=== PATIENT | female | born 1965 | race African-American/Black ===

== ENCOUNTER 2018-05-09 22:42 | Emergency (ER) | payer MEDICAID, OTHER ==
--- NOTE | 2018-05-10 02:52 | ER ---
Nurse's Notes [facility] Name: Sahra Dewey Age: 52 yrs Sex: Female : 1965 Arrival Date: 05/09/2018 Time: 22:47 Bed 14 Private MD: MARLEEN BORJA Diagnosis: Acute upper respiratory infection, unspecified Presentation: 05/09 23:01 Presenting complaint: Patient states: cough, nasal drainage, sneezing and feeling bad. ak1 Transition of care: patient was not received from another setting of care. Onset of symptoms was May 09, 2018. Risk Assessment: Do you want to hurt yourself or someone else? Patient reports no desire to harm self or others. Care prior to arrival: None. 23:01 Method Of Arrival: Ambulatory ak1 23:01 Acuity: MESSI 3 ak1 23:18 Initial Sepsis Screen: Does the patient meet any 2 criteria? No. Patient's initial cc3 sepsis screen is negative. Does the patient have a suspected source of infection? No. Patient's initial sepsis screen is negative. Triage Assessment: 23:04 General: Appears in no apparent distress. Behavior is calm, cooperative. ak1 23:18 Respiratory: Reports shortness of breath at rest on exertion Onset: The cc3 symptoms/episode began/occurred today, the patient has mild shortness of breath. 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 - Social history:: Smoking status: Patient/guardian denies using tobacco. - Ebola Screening: : No symptoms or risks identified at this time. Screenin:18 Abuse screen: Denies threats or abuse. Denies injuries from another. Nutritional cc3 screening: No deficits noted. Tuberculosis screening: No symptoms or risk factors identified. Fall Risk Ambulatory Aid- None/Bed Rest/Nurse Assist (0 pts). Gait- Normal/Bed Rest/Wheelchair (0 pts) Mental Status- Oriented to own ability (0 pts). Assessment: 23:18 General: Appears in no apparent distress. comfortable, Behavior is calm, cooperative, cc3 appropriate for age. Pain: Denies pain. Neuro: Level of Consciousness is awake, alert, obeys commands, Oriented to person, place, time, situation, Appropriate for age. Cardiovascular: Rhythm is regular. Respiratory: Airway is patent Respiratory effort is even, unlabored, Respiratory pattern is regular, symmetrical, Breath sounds are clear bilaterally. GI: Abdomen is round obese. : No signs and/or symptoms were reported regarding the genitourinary system. EENT: No signs and/or symptoms were reported regarding the EENT system. Derm: No signs and/or symptoms reported regarding the dermatologic system. Musculoskeletal: Circulation, motion, and sensation intact. Range of motion: intact in all extremities. 05/10 00:25 Reassessment: Patient appears in no apparent distress at this time. Patient and/or cc3 family updated on plan of care and expected duration. Pain level reassessed. Patient is alert, oriented x 3, equal unlabored respirations, skin warm/dry/pink. 01:10 Reassessment: Patient appears in no apparent distress at this time. Patient and/or cc3 family updated on plan of care and expected duration. Pain level reassessed. Patient is alert, oriented x 3, equal unlabored respirations, skin warm/dry/pink. 02:20 Reassessment: Patient appears in no apparent distress at this time. Patient and/or cc3 family updated on plan of care and expected duration. Pain level reassessed. Patient is alert, oriented x 3, equal unlabored respirations, skin warm/dry/pink. 03:10 Reassessment: Patient appears in no apparent distress at this time. Patient and/or cc3 family updated on plan of care and expected duration. Pain level reassessed. Patient is alert, oriented x 3, equal unlabored respirations, skin warm/dry/pink. PA Page discharged the patient home with prescription given. No IV cannula in situ. Patient left ER vitally stable and ambulatory. Vital Signs: 05/09 23:04 BP 140 / 118; Pulse 105; Resp 22; Temp 98.1; Pulse Ox 98% on R/A; Weight 188.24 kg (R); ak1 Height 5 ft. 4 in. (162.56 cm) (R); Pain 07/06; 05/10 00:25 BP 153 / 92; Pulse 79; Resp 20 S; Pulse Ox 95% on R/A; cc3 01:10 BP 157 / 90; Pulse 79; Resp 19 S; Pulse Ox 95% on R/A; cc3 02:01 BP 109 / 68; Pulse 101; Resp 20 S; Pulse Ox 100% on R/A; cc3 03:00 BP 122 / 81; Pulse 99; Resp 20 S; Pulse Ox 97% on R/A; cc3 05/09 23:04 Body Mass Index 71.23 (188.24 kg, 162.56 cm) ak1 ED Course: 05/09 22:47 Patient arrived in ED. am2 22:48 MARLEEN BORJA is Private Physician. am2 23:02 Triage completed. ak1 23:04 Arm band placed on Patient placed in waiting room, Patient notified of wait time. ak1 23:18 Keisha Tucker is Primary Nurse. cc3 23:18 Patient has correct armband on for positive identification. Bed in low position. Call cc3 light in reach. Side rails up X 1. child monitor on. Pulse ox on. NIBP on. 05/10 00:41 Phil Starks PA is PHCP. cp 00:41 Phil Lucia MD is Attending Physician. cp 01:35 XRAY Chest Pa And Lat (2 Views) In Process Unspecified. EDMS 03:10 No provider procedures requiring assistance completed. Patient did not have IV access cc3 during this emergency room visit. Administered Medications: No medications were administered Outcome: 02:52 Discharge ordered by . cp 03:10 Discharged to home ambulatory. cc3 03:10 Condition: stable 03:10 Discharge instructions given to patient, Instructed on discharge instructions, follow up and referral plans. medication usage, Demonstrated understanding of instructions, follow-up care, medications, Prescriptions given X 1. 03:17 Patient left the ED. cc3 Signatures: Dispatcher [employer] EDMS Sylwia Christianson, RN RN ak1 Phil Starks PA PA Clementine Blake am2 Keisha Tucker cc3
--- NOTE | 2018-05-10 02:52 | EDPHYS ---
Physician Documentation [facility] Name: Sahra Dewey Age: 52 yrs Sex: Female : 1965 Arrival Date: 05/09/2018 Time: 22:47 Bed 14 Private MD: MARLEEN BORJA ED Physician Phil Lucia HPI: 05/10 01:05 This 52 yrs old Black Female presents to ER via Ambulatory with complaints of cough. cp 01:05 The patient or guardian reports cough, that is intermittent. cp 01:05 Onset: The symptoms/episode began/occurred yesterday. Associated signs and symptoms: cp Pertinent positives: earache, rhinorrhea, sore throat, Pertinent negatives: chest pain, fever, vomiting. Severity of symptoms: in the emergency department the symptoms are unchanged despite home interventions. CCNA: 05/09 23:04 LMP N/A - Hysterectomy ak1 Historical: - Allergies: 23:04 No Known Allergies; ak1 - Home Meds: 23:04 losartan oral oral [Active]; Tessalon Perles 100 mg Oral cap [Active]; Albuterol Inhl ak1 [Active]; Advair Diskus Inhl [Active]; - PMHx: 23:04 Hypertension; Asthma; ak1 - PSHx: 23:04 ; Hysterectomy; lap band; ak1 - Immunization history:: Adult Immunizations unknown. - Social history:: Smoking status: Patient/guardian denies using tobacco. - Ebola Screening: : No symptoms or risks identified at this time. ROS: 05/10 01:08 Constitutional: Negative for body aches, fever, poor PO intake. cp 01:08 Eyes: Negative for injury, pain, redness, and discharge. cp 01:08 ENT: Positive for rhinorrhea, sore throat, Negative for drainage from ear(s), ear pain, difficulty swallowing, difficulty handling secretions. 01:08 Cardiovascular: Negative for chest pain, edema, palpitations. 01:08 Respiratory: Positive for cough, "sounds productive", Negative for shortness of breath, wheezing. 01:08 Abdomen/GI: Negative for abdominal pain, nausea, vomiting, and diarrhea, black/tarry stool, rectal bleeding. 01:08 Skin: Negative for cellulitis, rash. 01:08 Neuro: Negative for altered mental status, headache, weakness. 01:08 All other systems are negative. Exam: 01:00 ECG was reviewed by the Attending Physician. cp 01:15 Constitutional: The patient appears in no acute distress, alert, awake, cp non-diaphoretic, non-toxic, well developed, well nourished, obese. 01:15 Head/Face: Normocephalic, atraumatic. cp 01:15 Eyes: Periorbital structures: appear normal, Conjunctiva: normal, no exudate, no injection, Sclera: no appreciated abnormality, Lids and lashes: appear normal, bilaterally. 01:15 ENT: External ear(s): are unremarkable, Ear canal(s): are normal, clear, TM's: bulging, is not appreciated, bilaterally, dullness, bilaterally, erythema, is not appreciated, bilaterally, Nose: is normal, Mouth: Lips: moist, Oral mucosa: pink and intact, moist, Posterior pharynx: Airway: no evidence of obstruction, patent, Tonsils: are normal in appearance, Uvula: midline, swelling, is not appreciated, erythema, is not appreciated, exudate, is not appreciated, Voice: is normal. 01:15 Neck: ROM/movement: is normal, is supple, without pain, no range of motions limitations, no meningismus, no nuchal rigidity. 01:15 Chest/axilla: Inspection: normal, Palpation: is normal, no crepitus, no tenderness. 01:15 Cardiovascular: Rate: tachycardic, Rhythm: regular, JVD: is not appreciated. 01:15 Respiratory: the patient does not display signs of respiratory distress, Respirations: normal, no use of accessory muscles, no retractions, no splinting, no tachypnea, labored breathing, is not present, Breath sounds: decreased breath sounds, are not appreciated, stridor, is not appreciated, wheezing: is not appreciated. 01:15 Abdomen/GI: Inspection: obese Bowel sounds: active, all quadrants, Palpation: abdomen is soft and non-tender, in all quadrants. 01:15 Skin: cellulitis, is not appreciated, no rash present. Vital Signs: 05/09 23:04 BP 140 / 118; Pulse 105; Resp 22; Temp 98.1; Pulse Ox 98% on R/A; Weight 188.24 kg (R); ak1 Height 5 ft. 4 in. (162.56 cm) (R); Pain 4/10; 05/10 00:25 BP 153 / 92; Pulse 79; Resp 20 S; Pulse Ox 95% on R/A; cc3 01:10 BP 157 / 90; Pulse 79; Resp 19 S; Pulse Ox 95% on R/A; cc3 02:01 BP 109 / 68; Pulse 101; Resp 20 S; Pulse Ox 100% on R/A; cc3 03:00 BP 122 / 81; Pulse 99; Resp 20 S; Pulse Ox 97% on R/A; cc3 05/09 23:04 Body Mass Index 71.23 (188.24 kg, 162.56 cm) ak1 MDM: 00:41 Patient medically screened. cp 02:50 Data reviewed: vital signs, nurses notes, lab test result(s), radiologic studies, plain cp films. 02:50 Differential diagnosis: bronchitis, flu, pneumonia, strep throat. Test interpretation: cp by ED physician or midlevel provider: plain radiologic studies. Counseling: I had a detailed discussion with the patient and/or guardian regarding: the historical points, exam findings, and any diagnostic results supporting the discharge/admit diagnosis, lab results, radiology results, the need for outpatient follow up, a family practitioner, to return to the emergency department if symptoms worsen or persist or if there are any questions or concerns that arise at home. Response to treatment: the patient's symptoms have mildly improved after treatment, and as a result, I will discharge patient. 05/10 01:06 Order name: Influenza Screen (a \\T\\ B); Complete Time: 02:49 cp 05/10 01:06 Order name: Strep; Complete Time: 02:49 cp 05/10 01:07 Order name: XRAY Chest Pa And Lat (2 Views) cp 05/10 02:41 Order name: Throat Culture EDMS EC:00 Rate is 107 beats/min. Rhythm is regular. MA interval is normal. QRS interval is cp normal. QT interval is normal. Interpreted by me. Reviewed by me. Administered Medications: No medications were administered Disposition: 07:01 Co-signature as Attending Physician, Phil Lucia MD I agree with the assessment and melinda plan of care. Disposition: 05/10/18 02:52 Discharged to Home. Impression: Acute upper respiratory infection, unspecified. - Condition is Stable. - Discharge Instructions: Upper Respiratory Infection, Adult, Viral Respiratory Infection, [id number]. - Prescriptions for Tessalon Perles 100 mg Oral Capsule - take 2 capsule by ORAL route every 8 hours As needed; 30 capsule. - Medication Reconciliation Form, Thank You Letter, Antibiotic Education, Prescription Opioid Use form. - Follow up: Private Physician; When: 2 - 3 days; Reason: Recheck today's complaints. - Problem is new. - Symptoms are unchanged. Signatures: Dispatcher [employer] EDNM Phil Lucia MD MD cha Krenek, Amber RN RN ak1 Phil Starks PA PA cp Keisha Tucker cc3 Corrections: (The following items were deleted from the chart) 02:05 02:03 This 52 yrs old Black Female presents to ER via Ambulatory with complaints of cp cough. cp 03:17 02:52 05/10/2018 02:52 Discharged to Home. Impression: Acute upper respiratory cc3 infection, unspecified. Condition is Stable. Forms are Medication Reconciliation Form, Thank You Letter, Antibiotic Education, Prescription Opioid Use. Follow up: Private Physician; When: 2 - 3 days; Reason: Recheck today's complaints. Problem is new. Symptoms are unchanged. cp
[2018-05-10 03:49] VITALS: TEMP 98.1
[2018-05-10 03:52] VITALS: BP 109/68; O2SAT 100
--- NOTE | 2018-05-10 07:21 | EKG ---
Test Date: 2018-05-10 Test Time: 00:50:24 Process Technician: AG3 MEASUREMENT RESULTS: Intervals: Rate: 107 NM: 156 QRSD: 90 QT: 366 QTc: 488 Winder: P: 62 NM: 156 QRS: 33 T: 48 INTERPRETIVE STATEMENTS: Sinus tachycardia Otherwise normal ECG Compared to ECG 03/12/2015 09:23:48 Sinus rhythm no longer present Electronically Signed On 05-10-18 07:20:50 FEEDLOT MANAGER by Roland Yu
--- NOTE | 2018-05-10 08:38 | RAD REPORT ---
EXAM DESCRIPTION: RAD - Chest Pa And Lat (2 Views) - 05/10/2018 1:36 am CLINICAL HISTORY: COUGH Chest pain. COMPARISON: CHEST SINGLE VIEW dated 04/22/2014; CHEST PA AND LAT 2 VIEW dated 05/30/2010; CHEST PA AND LAT 2 VIEW dated 09/09/2009 FINDINGS: The lungs are clear. The heart is mildly to moderately enlarged in size. No displaced frac tures.
== END 2018-05-10 03:17 | disposition home or self-care (01) ==
LOC: ER 22:42
DX: J06.9 Acute upper respiratory infection, unspecified (principal); I10 Essential (primary) hypertension; J45.909 Unspecified asthma, uncomplicated
CPT/HCPCS: 71046; 87070; 87081; 87804; 93005; 99284

== ENCOUNTER 2018-10-30 00:03 | Emergency (ER) | payer OTHER ==
--- OUTSIDE RECORDS SUMMARY | 2018-10-30 00:06 | XMS REPORT ---
:1965 [facility] Address [address] [place] [address] Care Team Providers Name Role Phone Unavailable Unavailable Unavailable Problems This patient has no known problems. Allergies, Adverse Reactions, Alerts This patient has no known allergies or adverse reactions. Medications This patient has no known medications.
--- OUTSIDE RECORDS SUMMARY | 2018-10-30 00:06 | XMS REPORT | Summary of Care ---
:1965 Author Organization [facility] Address [address] [place] [id number] Care Team Providers Name Role Phone Lucie Giordano Primary Care Provider Reason for Referral Status Reason Specialty Diagnoses / Referred By Referred To Procedures Contact Contact New Request Obstetrics & Diagnoses Well woman exam Lucie Giordano, Gynecology Procedures CONSULT/REFERRAL LIME HIDE INSPECTOR TRACIE Sawant PA-C [address] [place] [address] DR Hernandez [facility] [address] [id number] [place], [place] Phone: [phone] Phone: (Routine) Status Reason Specialty Diagnoses / Referred By Referred To Procedures Contact Contact New Request Location Ophthalmology Diagnoses Type 2 diabetes mellitus without complication, without long-term current use of insulin Giuliana, [place] Procedures CONSULT/REFERRAL OPHTHALMOLOGY TRACIE Geronimo [address] [place] [address] [place] [address] (Routine) Status Reason Specialty Diagnoses / Referred By Referred To Procedures Contact Contact New Request Surgery Diagnoses Morbid obesity with BMI of 70 and over, adult Lucie Giordano, Procedures CONSULT/REFERRAL BARIATRIC SURGERY [address] [place] [place] [address] Reason for Visit Reason Comments Follow-up labs Encounter Details Date Type Department Care Team Description 10/20/2018 Office Visit [facility] Family Lucie Giordano, Type 2 diabetes mellitus without complication, without long-term current use of insulin (Primary Dx); Medicine - [place] Morbid obesity with BMI of 70 and over, adult; [facility] [address] [facility] [address] Microscopic hematuria; [place], [place] Abnormal chest x-ray; [id number] Bilateral lower extremity edema; [phone] Well woman exam Allergies No Known Allergiesdocumented as of this encounter (statuses as of 10/20/2018) Medications Medication Sig Dispensed Refills Start Date End Date Status fluticasone Inhale. 0 Active propion/salmeterol (ADVAIR DISKUS INHALE) albuterol 90 Inhale 2 Puffs 0 Active mcg/actuation inhaler every 6 (six) hours as needed for Wheezing or Shortness of Breath. loratadine 10 mg Take 1 tablet by 30 tablet 0 10/06/2018 Active tabletIndications: mouth daily. Seasonal allergic rhinitis due to pollen fluticasone Use 2 Sprays in 16 g 0 10/06/2018 Active propionate 50 each nostril daily. mcg/actuation nasal sprayIndications: Seasonal allergic rhinitis due to pollen metFORMIN 500 mg Take 1 tablet by 60 tablet 3 10/20/2018 Active tabletIndications: mouth 2 (two) times Type 2 diabetes daily with meals. mellitus without complication, without long-term current use of insulin documented as of this encounter (statuses as of 10/20/2018) Active Problems Problem Noted Date Morbid obesity with BMI of 70 and over, adult 10/12/2018 Type 2 diabetes mellitus without complication, without long-term current 10/12 use of insulin Bilateral lower extremity edema 10/12/2018 Snoring 10/12/2018 documented as of this encounter (statuses as of 10/20/2018) Social History Tobacco Use Types Packs/Day Years Used Date Never Smoker Smokeless Tobacco: Never Used Alcohol Use Drinks/Week oz/Week Comments Not Currently Sex Assigned at Date Recorded Not on file Job Start Date Occupation Industry Not on file Not on file Not on file Travel History Travel Start Travel End No recent travel history available. documented as of this encounter Last Filed Vital Signs Vital Sign Reading Time Taken Comments Blood Pressure 122/79 10/20/2018 1:59 PM CDT Pulse 82 10/20/2018 1:59 PM CDT Temperature 36.7 C (98 F) 10/20/2018 1:59 PM CDT Respiratory Rate - - Oxygen Saturation 97% 10/20/2018 1:59 PM CDT Inhaled Oxygen Concentration - - Weight 199.6 kg (440 lb) 10/20/2018 1:59 PM CDT Height - - Body Mass Index 75.53 10/06/2018 2:59 PM CDT documented in this encounter Patient Instructions Patient InstructionsLucie Giordano PA - 10/20/2018 2:00 PM CDT Understanding Loop Trolley MyPlate The USDA (U.S. Department of Agriculture) has guidelines to help you make healthy food choices. These are called MyPlate. MyPlate shows the food groups that make up healthy meals using the image of a place setting. Before you eat, think about the healthiest choices for what to put onto your plate or into your cup or bowl. To learn more about building a healthy plate, visit www.choosemyplate.gov. The food groups Fruits. Any fruit or 100% fruit juice counts as part of the Fruit Group. Fruits may be fresh, canned, frozen, or dried, and may be whole, cut-up, or pureed. Make half your plate fruits and vegetables. Vegetables. Any vegetable or 100% vegetable juice counts as a member of the Vegetable Group. Vegetables may be fresh, frozen, canned, or dried. They can be served raw or cooked and may be whole, cut-up, or mashed. Make half your plate fruits and vegetables. Grains. All foods made from grains are part of the Grains Group. These include wheat, rice, oats,cornmeal, and barley such as bread, pasta, oatmeal, cereal, tortillas, and grits. Grains should be no more than a quarter of your plate. At least half of your grains should be whole grains. Protein. This group includes meat, poultry, seafood, beans and peas, eggs, processed soy products(like tofu), nuts (including nut butters), and seeds. Make protein choices no more than a quarter ofyour plate. Meat and poultry choices should be lean or low fat. Dairy. All fluid milk products and foods made from milk that contain calcium , like yogurt and cheese, are part of the Dairy Group. (Foods that have little calcium, such as cream, butter, and cream cheese, are not part of the group.) Most dairy choices should be low-fat or fat-free. Oils. These are fats that are liquid at room temperature. They include canola , corn, olive, soybean, and sunflower oil. Foods that are mainly oil include mayonnaise, certain salad dressings, and soft margarines. You should have only 5 to 7 teaspoons of oils a day. You probably already get this muchfrom the food you eat. Date Last Reviewed: 10/27/2016 [employer] [address] [place] [id number]. All rights reserved. This information is not intended as a substitute for professional medical care. Always follow your healthcare professional's instructions. Aerobic Exercise for a Healthy Heart Exercise is a lot more than an energy booster and a stress reliever. It also strengthens your heart muscle, lowers your blood pressure and cholesterol, and helton calories. It can also improve your resting muscle tone, and your mood. Choose an activity that makes your heart and lungs work harder than they do when you rest or walk normally. This aerobic exercise can improve the way your heart and other muscles use oxygen. Make it fun by exercising with a friend and choosing an activity you enjoy. Here are some ideas: Walking Swimming Bicycling Stair climbing Dancing Jogging Gardening Remember, some activity is better than none. Exercise regularly If you havent been exercising regularly, get your doctors OK first. Then start slowly. Here are some tips: Begin exercising 3 times a week for 5 to 10minutes at a time. When you feel comfortable, add a few minutes each session. Slowly build up to exercising 3 to 4 times each week. Each session should last for 40 minutes, onaverage, and involve moderate- to vigorous-intensity physical activity. If you have been given nitroglycerin, be sure to carry it when you exercise. If you get chest pain (angina) when youre exercising, stop what youre doing, take your nitroglycerin, and call your doctor. Date Last Reviewed: 08/29/[address] [employer] [address] [place] [id number]. All rights reserved. This information is not intended as a substitute for professional medical care. Always follow your healthcare professional's instructions. documented in this encounter Progress Notes Lucie Giordano PA - 10/20/2018 2:00 PM CDT Cc: Chief Complaint Patient presents with Follow-up labs Sahra Huerta is a 53 year old female. Obesity: Has appointment with admitting office escort scheduled. Patient requests referral to bariatric surgery Started making some small changes Current diet includes: Am- corn dog Lunch- 2 baked chicken legs, vegetables Dinner- same as above Beverages- stopped sodas. Will drink powerade Or water. Exercise- none Abnormal CXR: mild pulmonary vascular congestion noted. Referred to cardio- patient has appointment scheduled. 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 Ordered b/l doppler, patient needs to complete No cough, wheezing, sob, meeks, orthopnea No hemoptysis No cp, palpitations No dizziness, syncope, weakness No calf pain, swelling, redness, warmth, tenderness Diabetes She presents for her initial diabetic visit. She has type 2 diabetes mellitus. There are no hypoglycemic associated symptoms. Pertinent negatives for hypoglycemia include no dizziness or headaches. Pertinent negatives for diabetes include no blurred vision, no chest pain, no fatigue, no foot paresthesias, no foot ulcerations, no polydipsia, no polyphagia, no polyuria, no visual change, no weakness and no weight loss. There are no hypoglycemic complications. Symptoms are stable. There are no diabeticcomplications. Risk factors for coronary artery disease include dyslipidemia, diabetes mellitus, obesity and post-menopausal. An WHITNEY inhibitor/angiotensin II receptor charu is not being taken. Allergies Sahra has No Known Allergies. Medications Outpatient Medications Prior to Visit Medication Sig Dispense Refill albuterol 90 mcg/actuation inhaler Inhale 2 Puffs every 6 (six) hours as needed for Wheezing or Shortness of Breath. fluticasone propion/salmeterol (ADVAIR DISKUS INHALE) Inhale. fluticasone propionate 50 mcg/actuation nasal spray Use 2 Sprays in each nostril daily. 16 g 0 loratadine 10 mg tablet Take 1 tablet by mouth daily. 30 tablet 0 No facility-administered medications prior to visit. Histories Past Medical History: Diagnosis Date Allergic rhinitis Arthritis Asthma Bilateral lower extremity edema Diabetes Hypertension Morbid obesity Past Surgical History: Procedure Laterality Date CYST EXCISION abdomen HYSTERECTOMY LAPAROSCOPIC ADJUSTABLE GASTRIC BANDING RADICAL HYSTERECTOMY Social History Socioeconomic History Marital status: Single Spouse name: Not on file Number of children: Not on file Years of education: Not on file Highest education level: Not on file Occupational History Not on file Social Needs Financial resource strain: Not on file Food insecurity: Worry: Not on file Inability: Not on file Transportation needs: Medical: Not on file Non-medical: Not on file Tobacco Use Smoking status: Never Smoker Smokeless tobacco: Never Used Substance and Sexual Activity Alcohol use: Not Currently Drug use: Never Sexual activity: Not on file Lifestyle Physical activity: Days per week: Not on file Minutes per session: Not on file Stress: Not on file Relationships Social connections: Talks on phone: Not on file Gets together: Not on file Attends shinto service: Not on file Active member of club or organization: Not on file Attends meetings of clubs or organizations: Not on file Relationship status: Not on file Intimate partner violence: Fear of current or ex partner: Not on file Emotionally abused: Not on file Physically abused: Not on file Forced sexual activity: Not on file Other Topics Concern Not on file Social History Narrative Lives at home with fiance, daughter, granddaughter No domestic violence Family History Problem Relation Age of Onset Other - see comments Mother TIA Hypertension Father Diabetes Father Stroke Father Review of Systems Constitutional: Negative for activity change, appetite change, chills, diaphoresis, fatigue, fever, unexpected weight change, weight gain and weight loss. HENT: Negative for congestion, ear pain, postnasal drip, rhinorrhea, sinus pressure, sneezing and sore throat. Eyes: Negative for blurred vision. Respiratory: Negative for cough, choking, chest tightness, shortness of breath, wheezing and stridor. Cardiovascular: Positive for leg swelling (chronic, unchanged). Negative for chest pain and palpitations. Gastrointestinal: Negative for abdominal pain, constipation, diarrhea, nausea and vomiting. Genitourinary: Negative for bladder incontinence, dysuria, urgency, polyuria, hematuria, flank pain,vaginal bleeding, difficulty urinating, pelvic pain and nocturia. Musculoskeletal: Negative for arthralgias, back pain, gait problem, joint swelling and myalgias. Neurological: Negative for dizziness, syncope, weakness, light-headedness, numbness and headaches. Hematological: Negative for cold intolerance and heat intolerance. Endocrine: Negative for goiter, hair loss, cold intolerance, heat intolerance, polydipsia, polyphagia, polyuria, weight gain and weight loss. Vital Signs BP 122/79 | Pulse 82 | Temp 36.7 C (98 F) (Tympanic) | Wt 440 lb (199.6 kg) | SpO2 97% | BMI 75.53 kg/m Physical Exam Constitutional: She is oriented to person, place, and time. She appears well- developed and well-nourished. No distress. HENT: Head: Normocephalic and atraumatic. Neck: Carotid bruit is not present. Cardiovascular: Normal rate, regular rhythm, normal heart sounds and intact distal pulses. Pulmonary/Chest: Effort normal and breath sounds normal. Abdominal: Soft. Bowel sounds are normal. She exhibits no distension. There is no tenderness. There is no guarding. Musculoskeletal: Normal range of motion. She exhibits edema (trace b/l LE edema , unchanged). She exhibits no tenderness. Neurological: She is alert and oriented to person, place, and time. Sensory exam of the foot is normal. Monofilament exam with sensation Right: 5/5 , Left: 5/5. Lesions absent Ulcers Absent Peripheral pulses present 2+. Skin: Skin is warm and dry. She is not diaphoretic. Psychiatric: She has a normal mood and affect. Nursing note and vitals reviewed. Results for SAHRA HUERTA ( ) as of 10/20/2018 14:04 Ref. Range 10/07/2018 10:54 10/07/2018 11:06 WBC x10^3 Latest Ref Range: 4.30 - 11.10 10*3/L 5.15 RBC x10^6 Latest Ref Range: 3.93 - 5.25 10*6/L 4.44 HGB Latest Ref Range: 11.6 - 15.0 g/dL 11.7 HCT Latest Ref Range: 35.7 - 45.2 % 37.5 MCV Latest Ref Range: 80.6 - 95.5 fL 84.5 MCH Latest Ref Range: 25.9 - 32.8 pg 26.4 MCHC Latest Ref Range: 31.6 - 35.1 g/dL 31.2 (L) RDW-SD Latest Ref Range: 39.0 - 49.9 fL 45.1 RDW-CV Latest Ref Range: 12.0 - 15.5 % 14.8 PLT x10^3 Latest Ref Range: 166 - 358 10*3/L 258 MPV Latest Ref Range: 9.5 - 12.9 fL 10.1 NRBC /100 WBC Latest Ref Range: 0.0 - 10.0 /100 WBCs 0.0 NRBC x10^3 Latest Units: 10*3/L <0.01 GRAN MAT (NEUT) % Latest Units: % 51.7 IMM GRAN % Latest Units: % 0.20 LYMPH% Latest Units: % 35.3 MONO % Latest Units: % 6.0 EOS % Latest Units: % 5.8 BASO % Latest Units: % 1.0 GRAN MAT x10^3(ANC) Latest Ref Range: 1.88 - 7.09 10*3/uL 2.66 IMM GRAN x10^3 Latest Ref Range: 0.00 - 0.06 10*3/uL <0.03 LYMPH x10^3 Latest Ref Range: 1.32 - 3.29 10*3/uL 1.82 MONO x10^3 Latest Ref Range: 0.33 - 0.92 10*3/uL 0.31 (L) EOS x10^3 Latest Ref Range: 0.03 - 0.39 10*3/uL 0.30 BASO x10^3 Latest Ref Range: 0.01 - 0.07 10*3/uL 0.05 NA Latest Ref Range: 135 - 145 mmol/L 142 K Latest Ref Range: 3.5 - 5.0 mmol/L 4.4 CL Latest Ref Range: 98 - 108 mmol/L 102 CO2 TOTAL Latest Ref Range: 23 - 31 mmol/L 31 AGAP Latest Ref Range: 2 - 16 9 BUN Latest Ref Range: 7 - 23 mg/dL 13 GLUCOSE Latest Ref Range: 70 - 110 mg/dL 125 (H) CREATININE Latest Ref Range: 0.50 - 1.04 mg/dL 0.72 eGFR CALCULATION (non ) Latest Units: mL/min/1.73m2 85.1 eGFR CALCULATION () Latest Units: mL/min/1.73m2 103.1 TOTAL BILI Latest Ref Range: 0.1 - 1.1 mg/dL 0.5 CHOL Latest Ref Range: 120 - 200 mg/dL 211 (H) TRIG Latest Ref Range: 30 - 170 mg/dL 98 HDL CHOL Latest Ref Range: >50 mg/dL 42 (L) HDLC RATIO Latest Ref Range: <=4.5 5.0 (H) LDL CHOL Latest Ref Range: <=160 mg/dL 149 VLDL Latest Ref Range: 5 - 60 mg/dL 20 CALCIUM Latest Ref Range: 8.6 - 10.6 mg/dL 9.6 T PROTEIN Latest Ref Range: 6.3 - 8.2 g/dL 7.5 ALBUMIN Latest Ref Range: 3.5 - 5.0 g/dL 3.8 NT-proBNP Latest Ref Range: <=125 pg/mL 60 HGB A1C Latest Ref Range: 4.0 - 6.0 % NGSP 7.0 (H) ALK PHOS Latest Ref Range: 34 - 122 U/L 111 ALT(SGPT) Latest Ref Range: 9 - 51 U/L 29 AST(SGOT) Latest Ref Range: 13 - 40 U/L 24 ROBERT AM Latest Ref Range: 4.5 - 23.0 ug/dL 5.6 TSH Latest Ref Range: 0.45 - 4.70 mIU/L 4.93 (H) FREE T4 Latest Ref Range: 0.78 - 2.20 ng/dL 1.24 FREE T3 Latest Ref Range: 2.77 - 5.27 pg/mL 3.73 COLOR Latest Ref Range: Yellow Yellow APPEARANCE Latest Ref Range: Clear Clear SP GRAVITY Latest Ref Range: 1.003 - 1.030 1.020 PH Latest Ref Range: 4.8 - 8.0 6.0 PROTEIN Latest Ref Range: Negative Negative GLU U QUAL Latest Ref Range: Negative Negative KETONES Latest Ref Range: Negative Negative BILIRUBIN Latest Ref Range: Negative Negative BLOOD Latest Ref Range: Negative Moderate (A) UROBILIN Latest Ref Range: 0-1.0 mg/dL 0.2 mg/dL NITRITE Latest Ref Range: Negative Negative LEUK GROVER Latest Ref Range: Negative Negative RBC/HPF Latest Ref Range: 0 - 3 HPF 1 WBC/HPF Latest Ref Range: 0 - 5 HPF 1 BACTERIA Latest Ref Range: Negative Few (A) SQ EPITH Latest Units: HPF 5 Assessment/Plan Type 2 diabetes mellitus without complication, without long-term current use of insulin (primary encounter diagnosis) Plan: metFORMIN 500 mg tablet, CONSULT/REFERRAL OPHTHALMOLOGY, MICROALBUMIN URINE, BLOOD GLUCOSE TEST STRIPS (BOX), GLUCOMETER, LANCET DEVICE EACH A1c 7, discussed lifestyle modifications vs medication initiation. Recommend trial of diet/exercise but patient prefers to start on metformin. Start metformin BID with food. Counseled educated on etiology of DM in great detail, including the pathophysiology, symptoms, treatment, and complications. Educated on the differences between type 1 and type 2. Pt dx with DM type II Educated in detail the complications of DM specifically: microvascular and macrovascular and thus importance of DM control. Explained how to avoid hypoglycemia while taking medications. Educated/demonstrated how to check glucose regularly - daily for now. Keep log. Pt given necessary supplies. Educated on importance of yearly DM eye exams to eval for dm retinopathy. Encouraged/discussed DM foot care: daily foot exams. Patient already set up with nutrition- encouraged to follow-up The 10-year ASCVD risk score (Piaalex DELGADO Jr., et al., 2013) is: 6.8% Values used to calculate the score: Age: 53 years Sex: Female Is Non- : Yes Diabetic: Yes Tobacco smoker: No Systolic Blood Pressure: 122 mmHg Is BP treated: No HDL Cholesterol: 42 mg/dL Total Cholesterol: 211 mg/dL Educated/counseled on lifestyle habits including: Counseled on eating portion controlled, well balanced portion controlled diets. Worked through his current meal plan while educating on improvements/changes to be made along with meal planning examples. Educated on food labels and how to interpret. Recommend calorie consumption of 6814-5177 with < 45% of intake being carbs, and < 10 % being fat. Recommend/discussed Heart healthy diet: low fat/carb/sugar diet; increase lean meat-chicken, turkey,fish; increase vegetables/fruits ( still be careful because elevated sugar level) Recommend/discussed Heart Healthy Exercise: total of 150 minutes of cardio: walking,swimming, hiking, biking every week. Stressed the importance of not skipping meals. Discuss ed healthy snacks such as tree nuts, raw veggies. Encouraged pt to go to ADA website for more helpful information. ER--> worsening condition; cp, shortness of breath, dizziness, syncope, palpitations, n/v, diaphoresis. Morbid obesity with BMI of 70 and over, adult Plan: CONSULT/REFERRAL BARIATRIC SURGERY Patient already set up with nutrition- encouraged to follow-up Requesting referral to weight loss/bariatric surgery clinic, will refer. Nutritional/Exercise Counseling and Education: - Counseled on diet, exercise, weight control and goals - Referral to the weight management center for further counseling and review surgical options Counseled on healthy lifestyle habits in great detail including: -Portion control -My plate model with fruits/vegetables on half of your plate -Monitoring caloric intake via my fitness pal lori: goal 1602-8080 ap daily for women, 3225-7233 calfor men. -Recommend avoiding sodas -Recommend avoiding fast food -Recommend increasing water: min 64 oz daily -Recommend Heart healthy diet: low fat/carb/sugar diet; increase lean meat- chicken, turkey, fish; increase vegetables/fruits ( still be careful because elevated sugar level) -Recommend Heart Healthy Exercise: total of 150 minutes of cardio: walking, swimming, hiking, biking every week. Microscopic hematuria Plan: URINALYSIS Recheck microscopic UA. Abnormal chest x-ray Plan: Identified mild pulmonary vascular congestion. No cp, sob, wheezing, hemoptysis, dizziness, syncope Patient referred to cardiology, echo? Patient agrees to follow-up Encouraged to complete HST, follow-up with sleep medicine pending results. Study Result HISTORY: Bilateral lower extremity edema. TECHNIQUE: PA and lateral views of the chest are obtained. No prior chest study available for comparison. FINDINGS: No acute pneumonia detected. No pneumothorax or pleural effusion or pulmonary congestion. Cardiothoracic ratio of approximately 13.7/30.8 cm is consistent with normal cardiac size. Mild generalized fullness of pulmonary vasculature is seen without jamie pulmonary edema. CONCLUSIONS: Mild pulmonary vascular congestion. Bilateral lower extremity edema Plan: chronic, unchanged. No calf pain, warmth, redness, tenderness. No sob, cp. Normal BNP. Ordered b/l doppler- encouraged to complete. Recommend compression stockings Recommend bilateral elevation ER--> worsening condition; cp, shortness of breath, dizziness, syncope, palpitations, n/v, diaphoresis, calf pain, hemoptysis. Well woman exam Plan: CONSULT/REFERRAL LIME HIDE INSPECTOR Pt ed/precautions given in detail regarding conditions/medicaitons. Er precautions given. Pt reportsunderstanding and agrees. rtc if s/s worsen or do not improve; 3 months; Plan of care, desired health behaviors, goals, Ddx, & any prescribed or OTC medications discussed with patient. Education resources & self management tools provided and reviewed with AVS. Patient/guardian/family verbalized understanding & agrees to plan of care. Barriers to care: NONE Ability to manage care: Good This visit did not involve counseling and coordination that comprised more than 50% of the visit time.Electronically signed by Lucie Giordano PA at 2018 5:05 PM CDTdocumented in this encounter Plan of Treatment Date Type Specialty Care Team Description 10/24/2018 Regional Economic Liaison Visit Sleep Disorder Diagnostic Trevon Atwood [address] [place] [address] Dr [address] [place], [place] [id number] 11/08/2018 Office Visit Cardiology Brock Ritchie MD [address] [place] [address] [address] [place] [address] [phone] 03/07/2019 Machine Packaging Technician Visit Endocrinology Diabetes & SolomonRaine, RD Metabolism [address] [place] [address] [phone] Name Type Priority Associated Diagnoses Date/Time URINALYSIS LAB Routine Microscopic hematuria 10/20/2018 3:01 PM CDT MICROALBUMIN URINE LAB Routine Type 2 diabetes mellitus 10/20/2018 3:01 PM CDT without complication, without long-term current use of insulin Health Maintenance Due Date Last Done Comments PNEUMOCOCCAL 0-64 YEARS COMBINED 1972 SERIES (1 of 1 - PPSV23) EYE EXAM 1976 URINE MICROALBUMIN 1976 PAP SMEAR 07/19/1987 COLONOSCOPY 2016 Zoster Recombinant Vaccine 2016 (SHINGRIX) (1 of 2) INFLUENZA VACCINE 11/27/2018 HgA1C 04/09/2019 10/07/2018 CREATININE (SERUM) 10/08/2019 10/07/2018 LDL-C 10/08/2019 10/07/2018 MAMMOGRAM 10/18/2019 10/17/2018 DTaP,Tdap,and Td Vaccines (1 - 10/21/2019 Postponed from 1985 Tdap) (Patient Refused) FOOT EXAM 10/21/2019 10/20/2018 documented as of this encounter Results Not on filedocumented in this encounter Visit Diagnoses Diagnosis Type 2 diabetes mellitus without complication, without long-term current use of insulin - Primary Morbid obesity with BMI of 70 and over, adult Microscopic hematuria Abnormal chest x-ray Other nonspecific abnormal finding of lung field Bilateral lower extremity edema Edema Well woman exam Routine general medical examination at a health care facility documented in this encounter Insurance Payer Benefit Plan / Subscriber ID Effective Dates Phone Address Type Group [facility] xxxxxxxxx 2018-Present Medicaid COMM PLAN - PLUS MANAGED MEDICAID documented as of this encounter"
--- OUTSIDE RECORDS SUMMARY | 2018-10-30 00:07 | XMS REPORT | Summary of Care ---
:1965 Author Organization [facility] Address [address] [place] [address] Care Team Providers Name Role Phone Lucie Giordano Primary Care Provider Reason for Visit Reason Comments Orders Encounter Details Date Type Department Care Team Description 10/20/2018 Telephone [facility] Family Medicine Lucie Giordano PA Orders - [address] [address] [place] [address] Allergies No Known Allergiesdocumented as of this encounter (statuses as of 10/24/2018) Medications Medication Sig Dispensed Refills Start Date [...] as of this encounter (statuses as of 10/24/2018) Active Problems Problem Noted Date Morbid obesity with BMI of 70 and over, adult 10/12/2018 Type 2 diabetes mellitus without complication, without long-term current 10/12 use of insulin Bilateral lower extremity edema 10/12/2018 Snoring 10/12/2018 documented as of this encounter (statuses as of 10/24/2018) Social History Tobacco Use Types Packs/Day Years [...] of this encounter Last Filed Vital Signs Not on filedocumented in this encounter Plan of Treatment Date Type Specialty Care Team Description 10/24/2018 Research Environmental Engineer Visit Sleep Disorder Diagnostic Trevon Atwood [address] [place] [address] 11/08/2018 Office Visit Cardiology Brock Ritchie MD [address] [place] [address] [address] [place] [address] [phone] 12/19/2018 Office Visit Urology Robert Palma MD [address] [place] [address] 03/07/2019 Meat Carver Visit Endocrinology Diabetes & Solomon, Raine, RD Metabolism [address] [place], [place] [address] Health Maintenance Due Date Last Done Comments PNEUMOCOCCAL 0-64 YEARS 1972 COMBINED SERIES (1 of 1 - PPSV23) EYE EXAM 1976 PAP SMEAR 07/19/1987 COLONOSCOPY 2016 Zoster Recombinant Vaccine 2016 (SHINGRIX) (1 of 2) INFLUENZA VACCINE 11/27/2018 HgA1C 04/09/2019 10/07/2018 CREATININE (SERUM) 10/08/2019 10/07/2018 LDL-C 10/08/2019 10/07/2018 MAMMOGRAM 10/18/2019 10/17/2018 DTaP,Tdap,and Td Vaccines (1 10/21/2019 Postponed from 1985 - Tdap) (Patient Refused) FOOT EXAM 10/21/2019 10/20/2018, 10/20/2018, 10/20/2018 URINE MICROALBUMIN 10/21/2019 10/20/2018 documented as of this encounter Results Not on filedocumented in this encounter Insurance Payer Benefit Plan / Subscriber ID Effective Dates Phone Address Type Group [facility] xxxxxxxxx 2018-Present Medicaid COMM PLAN - PLUS MANAGED MEDICAID documented as of this encounter
--- OUTSIDE RECORDS SUMMARY | 2018-10-30 00:07 | XMS REPORT | Summary of Care ---
:1965 Author Organization [facility] Address [address] [place] [address] Care Team Providers Name Role Phone Lucie Giordano Primary Care Provider Encounter Details Date Type Department Care Team Description 10/24/2018 Orders Only [facility] Doctor Unassigned, No [address] [facility] [address] [address] [place] [address] Allergies No Known Allergiesdocumented as of this [...] complication, without long-term current use of insulin Lancing Device with Use as directed, 1 Kit 0 10/21/2018 Active Lancets (ONETOUCH once a day to DELICA PLUS LANC DEV) monitor blood KitIndications: Type glucose for ICD 2 diabetes mellitus code E11.9 without complication, without long-term current use of insulin lancets (ONETOUCH Use as directed, 90 Each 0 10/21/2018 Active DELICA PLUS LANCET) once a day to 30 gauge monitor blood MiscIndications: Type glucose for ICD 2 diabetes mellitus code E11.9 without complication, without long-term current use of insulin blood sugar Use as directed, 90 Strip 0 10/21/2018 Active diagnostic (ONETOUCH once a day to ULTRA BLUE TEST monitor blood STRIP) glucose for ICD stripIndications: code E11.9 Type 2 diabetes mellitus without complication, without long-term current use of insulin Blood-Glucose Meter Use as directed, 1 Kit 0 10/21/2018 Active (ONETOUCH ULTRA2 once a day to METER) monitor blood KitIndications: Type glucose for ICD 2 diabetes mellitus code E11.9 without complication, without long-term current use of [...] Treatment Date Type Specialty Care Team Description 11/08/2018 Office Visit Cardiology Brock Ritchie MD [address] [facility] [address] [place], [place] [address] 12/19/2018 Office Visit Urology Robert Palma MD [address] [place] [address] 03/07/2019 Photography Intern Visit Endocrinology Diabetes & SolomonRaine nowak RD Metabolism [address] [place] [address] [phone] Health Maintenance Due Date Last Done Comments [...] 10/21/2019 10/20/2018 documented as of this encounter Procedures Procedure Name Priority Date/Time Associated Diagnosis Comments ASSIGNMENT OF BENEFITS Routine 10/24/2018 12:24 PM CDT documented in this encounter Results Not on filedocumented in this encounter Insurance Payer Benefit Plan / Subscriber ID Effective Dates Phone Address Type Group [facility] xxxxxxxxx 2018-Present Medicaid COMM PLAN - PLUS MANAGED MEDICAID documented as of this encounter
--- OUTSIDE RECORDS SUMMARY | 2018-10-30 00:07 | XMS REPORT | Summary of Care ---
:1965 Author Organization [facility] Address [address] [place] [address] Care Team Providers Name Role Phone Lucie Giordano Primary Care Provider Reason for Referral (Routine) Status Reason Specialty Diagnoses / Referred By Referred To Procedures Contact Contact New Request Urology Diagnoses Microscopic hematuria Lucie Giordano, Procedures CONSULT/REFERRAL UROLOGY [address] [facility] [place] [address] Reason for Visit Reason Comments Referral/consult Encounter Details Date Type Department Care Team Description 10/21/2018 Telephone [facility] Family Lucie Giordano PA Referral/consult Medicine - [address] [place] [address] Allergies No Known Allergiesdocumented as of this encounter (statuses as of 10/21/2018) Medications Medication Sig Dispensed Refills Start Date [...] as of this encounter (statuses as of 10/21/2018) Active Problems Problem Noted Date Morbid obesity with BMI of 70 and over, adult 10/12/2018 Type 2 diabetes mellitus without complication, without long-term current 10/12 use of insulin Bilateral lower extremity edema 10/12/2018 Snoring 10/12/2018 documented as of this encounter (statuses as of 10/21/2018) Social History Tobacco Use Types Packs/Day Years [...] Date Type Specialty Care Team Description 10/24/2018 Service Specialist Visit Sleep Disorder Diagnostic Trevon Atwood [address] [place] [address] [phone] 11/08/2018 Office Visit Cardiology Brock Ritchie MD [address] [place] [address] [address] [place] [address] [phone] 03/07/2019 Office Nurse Visit Endocrinology Diabetes & Raine Carbajal, LETA Metabolism [address] [place] [address] [phone] Health Maintenance Due Date Last Done Comments [...] Refused) FOOT EXAM 10/21/2019 10/20/2018, 10/20/2018, 10/20/2018 documented as of this encounter Results Not on filedocumented in this encounter Visit Diagnoses Diagnosis Microscopic hematuria - Primary documented in this encounter Insurance Payer Benefit Plan / Subscriber ID Effective Dates Phone Address Type Group [facility] xxxxxxxxx 2018-Present Medicaid COMM PLAN - PLUS MANAGED MEDICAID documented as of this encounter
--- OUTSIDE RECORDS SUMMARY | 2018-10-30 00:07 | XMS REPORT | Summary of Care ---
:1965 Author Organization [facility] Address [address] [place] [address] Care Team Providers Name Role Phone Lucie Giordano Primary Care Provider Reason for Visit Reason Comments LAB WORK Encounter Details Date Type Department Care Team Description 10/07/2018 Tile Shader Visit [facility] Family Lucie Giordano PA [address] [place] [address] [facility] [place] [address] Bilateral lower extremity edema; Medicine - [facility] Ad[facility] Fam Pob I Essential hypertension; [facility] Morbid obesity with BMI of 70 and over, adult; Drive Urinary frequency; [place], [place] Weight gain; [phone] Acanthosis nigricans; [phone] Screening for colorectal cancer; Elevated TSH Allergies No Known Allergiesdocumented as of this encounter (statuses as of 10/21/2018) Medications Medication Sig Dispensed Refills Start Date End Date Status fluticasone Inhale. 0 Active propion/salmeterol (ADVAIR DISKUS INHALE) albuterol 90 Inhale 2 Puffs 0 Active mcg/actuation every 6 (six) inhaler hours as needed for Wheezing or Shortness of Breath. loratadine 10 mg Take 1 tablet by 30 tablet 0 10/06/2018 Active tabletIndications: mouth daily. Seasonal allergic rhinitis due to pollen fluticasone Use 2 Sprays in 16 g 0 10/06/2018 Active propionate 50 each nostril mcg/actuation nasal daily. sprayIndications: Seasonal allergic rhinitis due to pollen benzonatate Take 1 capsule by 30 capsule 0 10/06/2018 10/16/2018 (TESSALON PERLHAFSA) mouth 3 (three) 100 mg times daily for capsuleIndications: 10 days. Seasonal allergic rhinitis due to pollen documented as of this encounter (statuses as of 10/21/2018) Active Problems No known active problemsdocumented as of this encounter (statuses as of 2018) Social History Tobacco Use Types Packs/Day Years [...] Date Type Specialty Care Team Description 10/24/2018 Tile Shader Visit Sleep Disorder Diagnostic Trevon Atwood [address] [place] [address] [address] [place] [address] [phone] 11/08/2018 Office Visit Cardiology Brock Ritchie MD [address] [place] [address] [address] [place] [address] [phone] 03/07/2019 Spinning Doffer Visit Endocrinology Diabetes & SolomonRaine nowak, RD Metabolism [address] [place] [address] [phone] Name Type Priority Associated Diagnoses Date/Time FECAL IMMUNOCHEMICAL TEST LAB Routine Screening for 10/16/2018 8:00 AM colorectal cancer CDT Health Maintenance Due Date Last Done Comments [...] 10/20/2018, 10/20/2018 documented as of this encounter Procedures Procedure Name Priority Date/Time Associated Comments Diagnosis URINE CULTURE Routine 10/07/2018 11:06 Urinary frequency Results for this AM CDT procedure are in the results section. URINALYSIS Routine 10/07/2018 11:06 Urinary frequency Results for this AM CDT procedure are in the results section. CBC WITH DIFFERENTIAL Routine 10/07/2018 10:54 Bilateral lower Results for this AM CDT extremity edema procedure are in the results section. FREE T3 Add-on 10/07/2018 10:54 Elevated TSH Results for this AM CDT procedure are in the results section. N-TERMINAL PRO-BNP Routine 10/07/2018 10:54 Bilateral lower Results for this AM CDT extremity edema procedure are in the results section. GLYCOSYLATED Routine 10/07/2018 10:54 Morbid obesity with Results for this HEMOGLOBIN (A1C) AM CDT BMI of 70 and over, procedure are in adult the results Urinary frequency section. Weight gain Acanthosis nigricans CBC WITH DIFF Routine 10/07/2018 10:54 Bilateral lower Results for this AM CDT extremity edema procedure are in the results section. LIPID PANEL Routine 10/07/2018 10:54 Bilateral lower Results for this (95640)(TOTAL AM CDT extremity edema procedure are in CHOLESTEROL, Essential the results TRIGLYCERIDES, HDL) hypertension section. Morbid obesity with BMI of 70 and over, adult Weight gain COMP. METABOLIC PANEL Routine 10/07/2018 10:54 Bilateral lower Results for this (42053) AM CDT extremity edema procedure are in Essential the results hypertension section. Morbid obesity with BMI of 70 and over, adult Urinary frequency Weight gain Acanthosis nigricans THYROID STIMULATING Routine 10/07/2018 10:54 Bilateral lower Results for this HORMONE AM CDT extremity edema procedure are in Essential the results hypertension section. Morbid obesity with BMI of 70 and over, adult Weight gain FREE T4 Add-on 10/07/2018 10:54 Elevated TSH Results for this AM CDT procedure are in the results section. CORTISOL AM Routine 10/07/2018 10:54 Morbid obesity with Results for this AM CDT BMI of 70 and over, procedure are in adult the results Weight gain section. documented in this encounter Results URINE CULTURE (10/07/2018 11:06 AM CDT) URINE CULTURE 10,000 - 100,000 [facility] CFU/mL mixed aerobic SERVICES organisms - suggests endogenous microbial contamination Specimen Urine - URINE, CLEAN CATCH Performing Organization Address City/[facility] Phone Number [facility] CLIA: [id number], [address] [place] [address] [facility] URINALYSIS (10/07/2018 11:06 AM CDT) APPEARANCE Clear Clear [facility] COLOR Yellow Yellow [facility] PH 6.0 4.8 - 8.0 [facility] SP GRAVITY 1.020 1.003 - 1.030 [facility] GLU U QUAL Negative Negative [facility] BLOOD Moderate (A) Negative [facility] KETONES Negative Negative [facility] PROTEIN Negative Negative [facility] UROBILIN 0.2 mg/dL 0-1.0 mg/dL [facility] BILIRUBIN Negative Negative [facility] NITRITE Negative Negative [facility] [place] Negative Negative [facility] RBC/HPF 1 0 - 3 HPF [facility] WBC/HPF 1 0 - 5 HPF [facility] BACTERIA Few (A) Negative [facility] SQ EPITH 5 HPF [facility] Specimen Urine - URINE, CLEAN CATCH Performing Organization Address [facility] Phone Number [facility] CLIA: [id number], [address] [place] [address] FREE T4 (10/07/2018 10:54 AM CDT) FREE T4 1.24 0.78 - 2.20 ng/dL [facility] Specimen Blood - ARM, LEFT Performing Organization Address [facility] Phone Number [facility] CLIA: [id number], [address] [place] [address] FREE T3 (10/07/2018 10:54 AM CDT) FREE T3 3.73 2.77 - 5.27 pg/mL [facility] Specimen Blood - ARM, LEFT Performing Organization Address [facility] Phone Number [facility] CLIA: [id number], [address] [place] [address] CBC WITH DIFFERENTIAL (10/07/2018 10:54 AM CDT) WBC 5.15 4.30 - 11.10 [facility] 10*3/L [facility] RBC 4.44 3.93 - 5.25 [facility] 10*6/L [facility] HGB 11.7 11.6 - 15.0 [facility] g/dL [facility] HCT 37.5 35.7 - 45.2 % [facility] MCV 84.5 80.6 - 95.5 fL [facility] MCH 26.4 25.9 - 32.8 pg [facility] MCHC 31.2 (L) 31.6 - 35.1 [facility] g/dL [facility] RDW-SD 45.1 39.0 - 49.9 fL [facility] RDW-CV 14.8 12.0 - 15.5 % [facility] PLT 258 166 - 358 [facility] 10*3/L [facility] MPV 10.1 9.5 - 12.9 fL [facility] NRBC/100 WBC 0.0 0.0 - 10.0 /100 [facility] WBCs [facility] NRBC x10^3 <0.01 10*3/L [facility] GRAN MAT (NEUT) % 51.7 % [facility] IMM GRAN % 0.20 % [facility] LYMPH % 35.3 % [facility] MONO % 6.0 % [facility] EOS % 5.8 % [facility] BASO % 1.0 % [facility] GRAN MAT x10^3(ANC) 2.66 1.88 - 7.09 [facility] 10*3/uL [facility] IMM GRAN x10^3 <0.03 0.00 - 0.06 [facility] 10*3/uL [facility] LYMPH x10^3 1.82 1.32 - 3.29 [facility] 10*3/uL [facility] MONO x10^3 0.31 (L) 0.33 - 0.92 [facility] 10*3/uL [facility] EOS x10^3 0.30 0.03 - 0.39 [facility] 10*3/uL [facility] BASO x10^3 0.05 0.01 - 0.07 [facility] 10*3/uL [facility] Specimen Blood - ARM, LEFT Performing Organization Address [facility] Phone Number [facility] CLIA: [id number], [address] [place] [address] N-TERMINAL PRO-BNP (10/07/2018 10:54 AM CDT) NT-proBNP 60 <=125 pg/mL [facility] Specimen Blood - ARM, LEFT Narrative Performed At Biotin has been reported to cause a negative [facility] bias, interpret results relative to patient's use of biotin. Performing Organization Address [facility] Phone Number [facility] CLIA: [id number], [address] [place] [address] GLYCOSYLATED HEMOGLOBIN (A1C) (10/07/2018 10:54 AM CDT) HGB A1C 7.0 (H) 4.0 - 6.0 % NGSP [facility] Specimen Blood - ARM, LEFT Narrative Performed At %A1C (NGSP) Interpretation (ADA) [facility] 4.8-5.6 Normal or (Non-Diabetic Range) 5.7-6.4 Increased Risk (Pre-Diabetic) >6.5Diabetes Indicated Performing Organization Address [facility] Phone Number [facility] CLIA: [id number], [address] [place] [address] [address] CORTISOL AM (10/07/2018 10:54 AM CDT) ROBERT AM 5.6 4.5 - 23.0 ug/dL [facility] Specimen Blood - ARM, LEFT Narrative Performed At Biotin has been reported to cause a positive bias, interpret [facility] results relative to patient's use of biotin. Performing Organization Address City/[facility] Phone Number [facility] CLIA: [id number], [address] [place] [address] [facility] THYROID STIMULATING HORMONE (10/07/2018 10:54 AM CDT) TSH 4.93 (H) 0.45 - 4.70 mIU/L [facility] Specimen Blood - ARM, LEFT Performing Organization Address [facility] Phone Number [facility] CLIA: [id number], [address] [place] [address] LIPID PANEL ([id number])(TOTAL CHOLESTEROL, TRIGLYCERIDES, HDL) (10/07/2018 10:54 AM CDT) CHOL 211 (H) 120 - 200 mg/dL [facility] HDL 42 (L) >50 mg/dL [facility] HDLC RATIO 5.0 (H) <=4.5 [facility] TRIG 98 30 - 170 mg/dL [facility] LDL CHOL 149 <=160 mg/dL [facility] VLDL 20 5 - 60 mg/dL [facility] Specimen Blood - ARM, LEFT Performing Organization Address [facility] Phone Number [facility] CLIA: [id number], [address] [place] [address] COMP. METABOLIC PANEL ([id number]) (10/07/2018 10:54 AM CDT) NA 142 135 - 145 [facility] mmol/L [facility] K 4.4 3.5 - 5.0 [facility] mmol/L [facility] CL 102 98 - 108 mmol/L [facility] CO2 TOTAL 31 23 - 31 mmol/L [facility] AGAP 9 2 - 16 [facility] BUN 13 7 - 23 mg/dL [facility] GLUCOSE 125 (H) 70 - 110 mg/dL [facility] CREATININE 0.72 0.50 - 1.04 [facility] mg/dL [facility] TOTAL BILI 0.5 0.1 - 1.1 mg/dL [facility] CALCIUM 9.6 8.6 - 10.6 [facility] mg/dL [facility] T PROTEIN 7.5 6.3 - 8.2 g/dL [facility] ALBUMIN 3.8 3.5 - 5.0 g/dL [facility] ALK PHOS 111 34 - 122 U/L [facility] ALT(SGPT) 29 9 - 51 U/L [facility] AST(SGOT) 24 13 - 40 U/L [facility] eGFR Calculation 85.1 mL/min/1.73m2 [facility] ([facility] LABORATORY [place]) eGFR Calculation 103.1 mL/min/1.73m2 [facility] () [facility] Specimen Blood - ARM, LEFT Narrative Performed At Association of Glomerular Filtration Rate (GFR) [facility] LABORATORY and Staging of Kidney Disease* + + +- + | GFR (mL/min/1.73 m2)| With Kidney Damage|Without Kidney Damage + + +- + |>90| Stage one| Normal + + +- + |60-89|S tage two| Decreased GFR + + +- + |30-59|S tage three| Stage three + + +- + |15-29|S tage four | Stage four + + +- + |<15 (or dialysis)|Stage five | Stage five + + +- + *Each stage assumes the associated GFR level has been in effect for at least three months.Stages 1 to 5, with or without kidney disease, indicate chronic kidney disease. Notes: Determination of stages one and two (with eGFR >59mL/min/1.73 m2) requires estimation of kidney damage for at least three months as defined by structural or functional abnormalities of the kidney, manifested by either: Pathological abnormalities or Markers of kidney damage (including abnormalities in the composition of the blood or urine or abnormalities in imaging tests). Performing Organization Address City/State/Zipcode Phone Number [facility] CLIA: [id number], [address] [place] [address] documented in this encounter Visit Diagnoses Diagnosis Bilateral lower extremity edema Edema Essential hypertension Unspecified essential hypertension Morbid obesity with BMI of 70 and over, adult Urinary frequency Weight gain Abnormal weight gain Acanthosis nigricans Acquired acanthosis nigricans Screening for colorectal cancer Special screening for malignant neoplasms, colon Elevated TSH Other abnormal blood chemistry documented in this encounter Insurance Payer Benefit Plan / Subscriber ID Effective Dates Phone Address Type Group [facility] xxxxxxxxx 2018-Present Medicaid COMM PLAN - PLUS MANAGED MEDICAID documented as of this encounter"
--- OUTSIDE RECORDS SUMMARY | 2018-10-30 00:07 | XMS REPORT | Summary of Care ---
:1965 Author Organization [facility] Address [address] [place] [id number] Care Team Providers Name Role Phone Lucie Giordano Primary Care Provider Reason for Visit Reason Comments Rx Concern/Question Encounter Details Date Type Department Care Team Description 10/21/2018 Telephone [facility] CodeGuard Family Lucie Giordano PA Rx Concern/Question Medicine - [address] [id number] Allergies No Known Allergiesdocumented as [...] Date Type Specialty Care Team Description 10/24/2018 Pipe Fitter Ammonia Visit Sleep Disorder Diagnostic Trevon Atwood [address] [place] [address] [address] [place] [address] 11/08/2018 Office Visit Cardiology Brock Ritchie MD [address] [place] [address] [address] [place] [address] 03/07/2019 Contract Designer Visit Endocrinology Diabetes & [facility], [facility] [address] [place] [address] [phone] Health Maintenance Due Date Last Done Comments [...] long-term current use of insulin - Primary documented in this encounter Insurance Payer Benefit Plan / Subscriber ID Effective Dates Phone Address Type Group [facility] xxxxxxxxx 2018-Present Medicaid COMM PLAN - PLUS MANAGED MEDICAID documented as of this encounter
[2018-10-30] MEDS ORDERED: ONDANSETRON 4 MG/2 ML VIAL ONE (00:47)
[2018-10-30] MEDS ORDERED: KETOROLAC 30 MG/ML INJ ONE (00:47)
[2018-10-30] MEDS ORDERED: NA CHLORIDE 0.9% 1,000 ML ONE (00:47)
[2018-10-30 01:07] LABS: Absolute Lymphocytes (CBC) 1.8 K/uL (0.7-4.9); Basophils % 0.7 % (0-1.3); Lymphocytes % 39.4 % (15.3-44.8); MPV 8.3 fL (7.6-11.3); RBC Red Blood Cell Count 4.56 M/uL (3.86-4.86)
[2018-10-30 01:08] LABS: Protime INR 1.06
[2018-10-30 01:20] LABS: ALT/SGPT 45 U/L (12-78); AST/SGOT 24 U/L (15-37); Albumin 3.1 g/dL (3.4-5.0); Alkaline Phosphatase 97 U/L (45-117); BUN Blood Urea Nitrogen 20 mg/dL (7-18); Bicarbonate 29 mmol/L (21-32); Bilirubin Direct < 0.1 mg/dL (0-0.2); Bilirubin Total 0.2 mg/dL (0.2-1.0); Glucose Level 100 mg/dL (74-106); Lipase 106 U/L (73-393); Magnesium 2.3 mg/dL (1.8-2.4); NT PRO-BNP 15 pg/mL (<125); Sodium Level 138 mmol/L (136-145); Troponin (Emerg Dept Use Only) < 0.02 ng/mL (0.0-0.045)
--- NOTE | 2018-10-30 02:52 | ER ---
Nurse's Notes [facility] Name: Sahra Dewey Age: 53 yrs Sex: Female : 1965 Arrival Date: 10/30/2018 Time: 00:08 Bed 7 Private MD: Diagnosis: Headache;Strain of muscle, fascia and tendon at neck level;Obesity, unspecified Presentation: 10/30 00:22 Presenting complaint: Patient states: i have pain at the back of my head. this started rv like an hour ago. it is like a sharp continuous pain (5/10) and it gets worse if I turn my head side to side (8/10). I've been to a today and I forgot my blood pressure pill and dm meds. Transition of care: patient was not received from another setting of care. Onset of symptoms was October 30, 2018 at 00:24. Risk Assessment: Do you want to hurt yourself or someone else? Patient reports no desire to harm self or others. Initial Sepsis Screen: Does the patient meet any 2 criteria? No. Patient's initial sepsis screen is negative. Does the patient have a suspected source of infection? No. Patient's initial sepsis screen is negative. Care prior to arrival: None. 00:22 Method Of Arrival: Ambulatory rv 00:22 Acuity: MESSI 3 rv Triage Assessment: 00:29 Headache History: Denies prior headaches. General: Appears in no apparent distress. rv uncomfortable, Behavior is calm, cooperative. 00:29 Pain: Pain currently is 5 out of 10 on a pain scale. Pain began suddenly, Also rv complains of no other associated symptoms. 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 - Family history:: not pertinent. - Social history:: Smoking status: unknown. - Ebola Screening: : No symptoms or risks identified at this time. Screenin:28 Abuse screen: Denies threats or abuse. Denies injuries from another. Nutritional rv screening: No deficits noted. Tuberculosis screening: No symptoms or risk factors identified. Fall Risk None identified. Assessment: 00:26 General: Appears in no apparent distress. uncomfortable, Behavior is calm, cooperative. rv Pain: Complains of pain in right base of the skull and left base of the skull. Neuro: Level of Consciousness is awake, alert, obeys commands, Oriented to person, place, time, situation, Reports headache. Cardiovascular: Patient's skin is warm and dry. Respiratory: Airway is patent. GI: No signs and/or symptoms were reported involving the gastrointestinal system. : No signs and/or symptoms were reported regarding the genitourinary system. EENT: No signs and/or symptoms were reported regarding the EENT system. Derm: Skin is intact. Musculoskeletal: No signs and/or symptoms reported regarding the musculoskeletal system. 01:21 Reassessment: Patient appears in no apparent distress at this time. Patient and/or rv family updated on plan of care and expected duration. Pain level reassessed. Patient is alert, oriented x 3, equal unlabored respirations, skin warm/dry/pink. patient came back from CT scan. due meds given. awaiting results of blood and radiology exams. 03:20 Reassessment: Patient appears in no apparent distress at this time. Patient and/or tl2 family updated on plan of care and expected duration. Pain level reassessed. Patient is alert, oriented x 3, equal unlabored respirations, skin warm/dry/pink. pt verbalized understanding of discharge instructions, need for follow up and prescription usage Patient states feeling better. Vital Signs: 00:25 BP 137 / 83; Pulse 95; Resp 18; Temp 98.2; Pulse Ox 99% ; Pain 5/10; rv 01:15 BP 112 / 70; Pulse 83; Resp 16; Temp 98; Pulse Ox 99% on R/A; rv 01:23 BP 112 / 70; Pulse 78; Resp 18; Pulse Ox 100% on R/A; tl2 02:23 BP 116 / 78; Pulse 84; Resp 18; Pulse Ox 95% on R/A; tl2 03:08 BP 113 / 68; Pulse 76; Resp 18; Pulse Ox 95% on R/A; tl2 ED Course: 00:08 Patient arrived in ED. es 00:12 Phil Lucia MD is Attending Physician. melinda 00:22 Hamilton Pickering, KENYA is Primary Nurse. rv 00:25 Triage completed. rv 00:28 Patient has correct armband on for positive identification. Bed in low position. Call rv light in reach. Side rails up X 1. Adult w/ patient. Pulse ox on. NIBP on. 00:40 Inserted saline lock: 20 gauge in right antecubital area, using aseptic technique. rv Blood collected. 00:53 Urine Culture Sent. rv 01:09 CT Head C Spine In Process Unspecified. EDMS 01:18 X-ray completed. Portable x-ray completed in exam room. Patient tolerated procedure mh1 well. 01:19 XRAY Chest (1 view) In Process Unspecified. EDMS 02:50 James Crawford MD is Referral Physician. melinda 03:20 No provider procedures requiring assistance completed. IV discontinued, intact, tl2 bleeding controlled, No redness/swelling at site. Pressure dressing applied. Administered Medications: 01:21 Drug: NS 0.9% 500 ml Route: IV; Rate: bolus; Site: right antecubital; rv 01:45 Follow up: IV Status: Completed infusion rv 01:21 Drug: TORadol 30 mg Route: IVP; Site: right antecubital; rv 01:46 Follow up: Response: Marked relief of symptoms; Pain is decreased rv 01:21 Drug: Zofran 4 mg Route: IVP; Site: right antecubital; rv 01:46 Follow up: Response: Marked relief of symptoms; Nausea is decreased rv 01:45 Drug: NS 0.9% 1000 ml Route: IV; Rate: 125 ml/hr; Site: right antecubital; rv 03:21 Follow up: IV Status: Completed infusion tl2 Outcome: 02:51 Discharge ordered by . melinda 03:20 Discharged to home via wheelchair, with family. tl2 03:20 Condition: stable 03:20 Discharge instructions given to patient, family, Instructed on discharge instructions, follow up and referral plans. medication usage, Demonstrated understanding of instructions, follow-up care, medications, Prescriptions given X 2. 03:21 Patient left the ED. tl2 Signatures: Dispatcher [employer] EDMS Khari Phil, MD MD melinda [place], Radha Hernandez 1 Oriana Hi RN RN tl2 Hamilton Pickering RN RN rv
--- NOTE | 2018-10-30 02:53 | EDPHYS ---
Physician Documentation [facility] Name: Sahra Dewey Age: 53 yrs Sex: Female : 1965 Arrival Date: 10/30/2018 Time: 00:08 Bed 7 Private MD: ED Physician Phil Lucia HPI: 10/30 00:24 This 53 yrs old Black Female presents to ER via Unassigned with complaints of Headache, melinda Neck Pain, <24hrs Old. 00:24 The patient complains of pain to the left base of the skull and right base of the melinda skull. The patient describes the headache as aching, a pressure. Onset: The symptoms/episode began/occurred just prior to arrival, today. Associated signs and symptoms: The patient has no apparent associated signs or symptoms. Severity of symptoms: At its worst the pain was moderate, in the emergency department the pain is unchanged. Headache History: The patient has had previous headaches and this one is similar to previous episodes. The symptoms are alleviated by nothing. the symptoms are aggravated by nothing. The patient has experienced similar episodes in the past, a few times. 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 - Family history:: not pertinent. - Social history:: Smoking status: unknown. - Ebola Screening: : No symptoms or risks identified at this time. ROS: 00:24 Constitutional: Negative for fever, chills, and weight loss, Eyes: Negative for injury, melinda pain, redness, and discharge, ENT: Negative for injury, pain, and discharge, Cardiovascular: Negative for chest pain, palpitations, and edema, Respiratory: Negative for shortness of breath, cough, wheezing, and pleuritic chest pain, Abdomen/GI: Negative for abdominal pain, nausea, vomiting, diarrhea, and constipation, Back: Negative for injury and pain, : Negative for injury, bleeding, discharge, and swelling, MS/Extremity: Negative for injury and deformity, Skin: Negative for injury, rash, and discoloration, Psych: Negative for depression, anxiety, suicide ideation, homicidal ideation, and hallucinations, Allergy/Immunology: Negative for hives, rash, and allergies, Endocrine: Negative for neck swelling, polydipsia, polyuria, polyphagia, and marked weight changes. 00:24 Neck: Positive for pain with movement, pain at rest, tenderness. 00:24 Neuro: Positive for headache. Exam: 00:24 Constitutional: This is a well developed, well nourished patient who is awake, alert, melinda and in no acute distress. Eyes: Pupils equal round and reactive to light, extra-ocular motions intact. Lids and lashes normal. Conjunctiva and sclera are non-icteric and not injected. Cornea within normal limits. Periorbital areas with no swelling, redness, or edema. ENT: Nares patent. No nasal discharge, no septal abnormalities noted. Tympanic membranes are normal and external auditory canals are clear. Oropharynx with no redness, swelling, or masses, exudates, or evidence of obstruction, uvula midline. Mucous membranes moist. Chest/axilla: Normal chest wall appearance and motion. Nontender with no deformity. No lesions are appreciated. Cardiovascular: Regular rate and rhythm with a normal S1 and S2. No gallops, murmurs, or rubs. Normal PMI, no JVD. No pulse deficits. Respiratory: Lungs have equal breath sounds bilaterally, clear to auscultation and percussion. No rales, rhonchi or wheezes noted. No increased work of breathing, no retractions or nasal flaring. Abdomen/GI: Soft, non-tender, with normal bowel sounds. No distension or tympany. No guarding or rebound. No evidence of tenderness throughout. Back: No spinal tenderness. No costovertebral tenderness. Full range of motion. Skin: Warm, dry with normal turgor. Normal color with no rashes, no lesions, and no evidence of cellulitis. MS/ Extremity: Pulses equal, no cyanosis. Neurovascular intact. Full, normal range of motion. Neuro: Awake and alert, GCS 15, oriented to person, place, time, and situation. Cranial nerves II-XII grossly intact. Motor strength 5/5 in all extremities. Sensory grossly intact. Cerebellar exam normal. Normal gait. Psych: Awake, alert, with orientation to person, place and time. Behavior, mood, and affect are within normal limits. 00:24 Head/face: Noted is tenderness, that is mild, of the left base of the skull and right base of the skull. 00:27 Neck: ROM/movement: is normal, no acute changes, limited range of motion, is not melinda appreciated, Meningeal signs: are not present, Kernig's sign is negative, Brudzinski's sign is negative, nuchal rigidity, is not appreciated. Vital Signs: 00:25 BP 137 / 83; Pulse 95; Resp 18; Temp 98.2; Pulse Ox 99% ; Pain 5/10; rv 01:15 BP 112 / 70; Pulse 83; Resp 16; Temp 98; Pulse Ox 99% on R/A; rv 01:23 BP 112 / 70; Pulse 78; Resp 18; Pulse Ox 100% on R/A; tl2 02:23 BP 116 / 78; Pulse 84; Resp 18; Pulse Ox 95% on R/A; tl2 03:08 BP 113 / 68; Pulse 76; Resp 18; Pulse Ox 95% on R/A; tl2 MDM: 00:12 Patient medically screened. melinda 00:27 Data reviewed: vital signs, nurses notes, lab test result(s), EKG, radiologic studies. [facility] 10/30 00:24 Order name: Basic Metabolic Panel; Complete Time: :58 [facility] 10/30 00:24 Order name: CBC with Diff; Complete Time: : [facility] 10/30 00:24 Order name: LFT's; Complete Time: :58 [facility] 10/30 00:24 Order name: Magnesium; Complete Time: :58 [facility] 10/30 00:24 Order name: NT PRO-BNP; Complete Time: : [facility] 10/30 00:24 Order name: PT-INR; Complete Time: : [facility] 10/30 00:24 Order name: Troponin (emerg Dept Use Only); Complete Time: 01:58 [facility] 10/30 00:24 Order name: XRAY Chest (1 view) [facility] 10/30 00:24 Order name: Lipase; Complete Time: : [facility] 10/30 00:24 Order name: CT Head C Spine [facility] 10/30 00:24 Order name: Urine Culture [facility] 10/30 01:48 Order name: Urine Dipstick--Ancillary (enter results) ag4 10/30 00:24 Order name: EKG; Complete Time: 00:26 [facility] 10/30 00:24 Order name: Cardiac monitoring; Complete Time: 00:53 [facility] 10/30 00:24 Order name: EKG - Nurse/Tech; Complete Time: 01:12 [facility] 10/30 00:24 Order name: IV Saline Lock; Complete Time: 00:53 [facility] 10/30 00:24 Order name: Labs collected and sent; Complete Time: 00:53 [facility] 10/30 00:24 Order name: O2 Per Protocol; Complete Time: 00:53 [facility] 10/30 00:24 Order name: O2 Sat Monitoring; Complete Time: 00:53 [facility] 10/30 00:24 Order name: Urine Dipstick-Ancillary (obtain specimen); Complete Time: 00:53 [facility] Administered Medications: 01:21 Drug: NS 0.9% 500 ml Route: IV; Rate: bolus; Site: right antecubital; rv 01:45 Follow up: IV Status: Completed infusion rv 01:21 Drug: TORadol 30 mg Route: IVP; Site: right antecubital; rv 01:46 Follow up: Response: Marked relief of symptoms; Pain is decreased rv 01:21 Drug: Zofran 4 mg Route: IVP; Site: right antecubital; rv 01:46 Follow up: Response: Marked relief of symptoms; Nausea is decreased rv 01:45 Drug: NS 0.9% 1000 ml Route: IV; Rate: 125 ml/hr; Site: right antecubital; rv 03:21 Follow up: IV Status: Completed infusion tl2 Disposition: 10/30/18 02:51 Discharged to Home. Impression: Headache, Strain of muscle, fascia and tendon at neck level, Obesity, unspecified. - Condition is Stable. - Discharge Instructions: General Headache Without Cause, Muscle Strain, Obesity, Adult, General Headache Without Cause, [id number]. - Prescriptions for Fioricet with Codeine [id number] mg Oral capsule - take 1 capsule by ORAL route every 4 hours as needed not to exceed 6 capsules per 24hrs; 20 capsule. Zofran 4 mg Oral Tablet - take 1 tablet by ORAL route every 12 hours As needed; 20 tablet. - Medication Reconciliation Form, Thank You Letter, Antibiotic Education, Prescription Opioid Use form. - Follow up: Private Physician; When: 2 - 3 days; Reason: Recheck today's complaints, Continuance of care, Re-evaluation by your physician. Follow up: James Crawford MD; When: 2 - 3 days; Reason: Recheck today's complaints, Re-evaluation by your physician. - Problem is new. - Symptoms have improved. Signatures: Dispatcher [employer] EDMS Phil Lucia MD MD cha Knox, Taylor, RN RN tl2 Hamilton Pickering RN RN rv Corrections: (The following items were deleted from the chart) 03:21 02:51 10/30/2018 02:51 Discharged to Home. Impression: Headache; Strain of muscle, tl2 fascia and tendon at neck level; Obesity, unspecified. Condition is Stable. Discharge Instructions: General Headache Without Cause, Muscle Strain, Obesity, Adult, General Headache Without Cause, [id number]. Prescriptions for Fioricet with Codeine [id number] mg Oral capsule - take 1 capsule by ORAL route every 4 hours as needed not to exceed 6 capsules per 24hrs; 20 capsule, Zofran 4 mg Oral Tablet - take 1 tablet by ORAL route every 12 hours As needed; 20 tablet. and Forms are Medication Reconciliation Form, Thank You Letter, Antibiotic Education, Prescription Opioid Use. Follow up: Private Physician; When: 2 - 3 days; Reason: Recheck today's complaints, Continuance of care, Re-evaluation by your physician. Follow up: James Crawford; When: 2 - 3 days; Reason: Recheck today's complaints, Re-evaluation by your physician. Problem is new. Symptoms have improved. melinda
[2018-10-30 03:30] LABS: Urine Blood 1+ (NEG); Urine Glucose NEGATIVE (NEG); Urine Protein NEGATIVE (NEG); Urine Specific Gravity >1.030 (1.005-1.030); Urine pH 5.5 (5.0-7.0)
[2018-10-30 03:57] VITALS: TEMP 98
[2018-10-30 04:00] VITALS: O2SAT 95
[2018-10-30 04:01] VITALS: BP 113/68
--- NOTE | 2018-10-30 14:39 | RAD REPORT ---
EXAM DESCRIPTION: RAD - Chest Single View - 10/30/2018 1:19 am CLINICAL HISTORY: Cough COMPARISON: April 2018 TECHNIQUE: AP portable chest image was obtained 0106 hours . FINDINGS: No focal mass or consolidation. Lung markings are prominent but not clearly different from comparison. Heart size and vasculature are similar to comparison. No measurable pleural effusion and no pneumothorax. No acute bony abnormality seen. No acute aortic findings. Due to technical malfunction is, reporting was delayed due to limited image availability. IMPRESSION: No acute cardiopulmonary process. Chest findings are not substantially different from comparison.
--- NOTE | 2018-10-31 07:46 | EKG ---
Test Date: 2018-10-30 Test Time: 01:10:11 Licsw: JOANNA MEASUREMENT RESULTS: Intervals: Rate: 78 NE: 152 QRSD: 98 QT: 412 QTc: 469 [place]: P: 38 NE: 152 QRS: 6 T: 25 INTERPRETIVE STATEMENTS: Normal sinus rhythm Normal ECG Compared to ECG 05/10/2018 00:50:24 Sinus tachycardia no longer present Electronically Signed On 10-31-18 07:44:59 CDT by Roland Yu
--- NOTE | 2018-10-31 15:23 | RAD REPORT ---
EXAM DESCRIPTION: CT - Head C Spine Mpr Wo Con - 10/30/2018 1:09 am CLINICAL HISTORY: The patient is 53 years old and is Female; PAIN TECHNIQUE: Axial computed tomography images of the head/brain and cervical spine without intravenous contrast. Sagittal and coronal reformatted images were created and reviewed. This CT exam was pe rformed using one or more of the following dose reduction techniques: automated exposure control, a djustment of the mA and/or kV according to patient size, and/or use of iterative reconstruction techn ique. COMPARISON: No relevant prior studies available. FINDINGS: BRAIN: Unremarkable. No hemorrhage. No significant white matter disease. No edema. VENTRICLES: Unremarkable. No ventriculomegaly. SKULL: No acute fracture. SINUSES: Unremarkable as visualized. No acute sinusitis. MASTOID AIR CELLS: Unremarkable as visualized. No mastoid effusion. VERTEBRAE: The vertebral body heights and alignment are maintained. No acute fracture. DISCS/SPINAL CANAL/NEURAL FORAMINA: There is multi-level intervertebral disc height loss. There are disc-osteophyte complexes at several levels, with associated mild spinal canal narrowing. There i s also facet hypertrophy and uncovertebral joint osteophytosis, with associated multilevel neural for aminal narrowing. SOFT TISSUES: The soft tissues are normal. LUNG APICES: The lung apices are clear. IMPRESSION: 1. No acute intracranial findings. 2. Spondylosis of the cervical spine without acute findings. Electronically signed by: Rocio Garcia MD 10/30/2018 1:29 AM CDT Due to temporary technical issues with the PACS/Fluency reporting system, reports are being signed by the in house radiologist as a courtesy to ensure prompt reporting. The interpreting radiologist is f ully responsible for the content of the report.
== END 2018-10-30 03:21 | disposition home or self-care (01) ==
LOC: ER 00:03
DX: S16.1XXA Strain of muscle, fascia and tendon at neck level, initial encounter (principal); E66.9 Obesity, unspecified; R51 Headache; J45.909 Unspecified asthma, uncomplicated; I10 Essential (primary) hypertension; E11.9 Type 2 diabetes mellitus without complications; Z79.84 Long term (current) use of oral hypoglycemic drugs
CPT/HCPCS: 96361; 93005; 87088; 85025; 87086; 80048; 36415; 83735; 85610; 80076; 81003; 84484; 83690; 83880; 70450; 72125; 71045; 96375; 96374; 99284; J7030; J2405

== ENCOUNTER 2019-03-20 11:01 | Emergency (ER) | payer OTHER ==
--- OUTSIDE RECORDS SUMMARY | 2019-03-20 11:03 | XMS REPORT ---
:1965 [facility] Address [address] [place] [address] Care Team Providers Name Role Phone Unavailable Unavailable Unavailable Problems This patient has no known problems. Allergies, Adverse Reactions, Alerts This patient has no known allergies or adverse reactions. Medications This patient has no known medications.
--- OUTSIDE RECORDS SUMMARY | 2019-03-20 11:05 | XMS REPORT | Summary of Care ---
:1965 Author Organization [facility] Address [address] [place] [address] Care Team Providers Name Role Phone Lucie Giordano Primary Care Provider Reason for Visit Reason Comments Refill Request Encounter Details Date Type Department Care Team Description 11/02/2018 Refill [facility] Family Medicine Lucie Giordano PA Refill Request - [address] [address] [place] [address] Allergies No Known Allergiesdocumented as of this encounter (statuses as of 11/02/2018) Medications Medication Sig Dispensed Refills Start Date End Date Status fluticasone Inhale. 0 Active propion/salmeterol (ADVAIR DISKUS INHALE) albuterol 90 Inhale 2 Puffs 0 Active mcg/actuation every 6 (six) inhaler hours as needed for Wheezing or Shortness of Breath. fluticasone Use 2 Sprays in 16 g 0 10/06/2018 Active propionate 50 each nostril mcg/actuation daily. nasal sprayIndications: Seasonal allergic rhinitis due to pollen metFORMIN 500 mg Take 1 tablet 60 tablet 3 10/20/2018 Active tabletIndications: by mouth 2 Type 2 diabetes (two) times mellitus without daily with complication, meals. without long-term current use of insulin Lancing Device Use as 1 Kit 0 10/21/2018 Active with Lancets directed, once (ONETOUCH DELICA a day to PLUS LANC DEV) monitor blood KitIndications: glucose for ICD Type 2 diabetes code E11.9 mellitus without complication, without long-term current use of insulin lancets (ONETOUCH Use as 90 Each 0 10/21/2018 Active DELICA PLUS directed, once LANCET) 30 gauge a day to MiscIndications: monitor blood Type 2 diabetes glucose for ICD mellitus without code E11.9 complication, without long-term current use of insulin blood sugar Use as 90 Strip 0 10/21/2018 Active diagnostic directed, once (ONETOUCH ULTRA a day to BLUE TEST STRIP) monitor blood stripIndications: glucose for ICD Type 2 diabetes code E11.9 mellitus without complication, without long-term current use of insulin Blood-Glucose Use as 1 Kit 0 10/21/2018 Active Meter (ONETOUCH directed, once ULTRA2 METER) a day to KitIndications: monitor blood Type 2 diabetes glucose for ICD mellitus without code E11.9 complication, without long-term current use of insulin loratadine 10 mg Take 1 tablet 30 tablet 0 11/02/2018 Active tabletIndications: by mouth daily. Seasonal allergic rhinitis due to pollen loratadine 10 mg Take 1 tablet 30 tablet 0 10/06/2018 11/02/2018 Discontinued tabletIndications: by mouth daily. 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 [address] [facility] [address] [place] [address] [phone] 11/08/2018 Office Visit Cardiology Brock Ritchie MD [address] [place] [address] [address] [place] [address] [phone] 03/07/2019 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
--- OUTSIDE RECORDS SUMMARY | 2019-03-20 11:05 | XMS REPORT | Summary of Care ---
:1965 Author Organization [facility] Address [address] [place] [address] Care Team Providers Name Role Phone Lucie Giordano Primary Care Provider Reason for Referral (Routine) Status Reason Specialty Diagnoses / Referred By Referred To Procedures Contact Contact New Request Sleep Disorder Diagnoses GORGE (obstructive sleep apnea) Lucie Giordano Diagnostic Procedures CONSULT/REFERRAL SLEEP CLINIC ADULT TRACIE TURNER [address] [place] [phone] Reason for Visit Reason Comments Referral/consult Encounter Details Date Type Department Care Team Description 11/08/2018 Telephone [facility] Family Lucie Giordano PA Referral/consult Medicine - [address] [address] Allergies No Known Allergiesdocumented as of this encounter (statuses as of 11/08/2018) Medications Medication Sig Dispensed Refills Start Date [...] insulin loratadine 10 mg Take 1 tablet by 30 tablet 0 11/02/2018 Active tabletIndications: mouth daily. Seasonal allergic rhinitis due to pollen furosemide 40 mg Take 1 tablet by 30 tablet 1 11/08/2018 Active tabletIndications: mouth daily. Leg edema KCL 20 mEq Take 1 tablet by 30 tablet 3 11/08/2018 Active tabletIndications: mouth daily. Leg edema documented as of this encounter (statuses as of 11/08/2018) Active Problems Problem Noted Date Morbid obesity with BMI of 70 and over, adult 10/12/2018 Type 2 diabetes mellitus without complication, without long-term current 10/12 use of insulin Bilateral lower extremity edema 10/12/2018 Snoring 10/12/2018 GORGE (obstructive sleep apnea) Morbid obesity Hypertension Diabetes documented as of this encounter (statuses as of 11/08/2018) Social History Tobacco Use Types Packs/Day Years [...] Treatment Date Type Specialty Care Team Description 11/09/2018 Laboratory Only Hydraulic Strainer Operator, Adc Cardio Fac 1, Adc Cardio Fac Room 12/12/2018 Office Visit Cardiology Brock Ritchie MD [address] [place] [address] [address] [place], [place] [address] 12/28/2018 Office Visit Pulmonary Disease Trevon Atwood [address] Andrew [address] [place], [place] [address] 03/07/2019 Insurance Healthcare Consultant Visit Endocrinology Diabetes & SolomonRaine nowak, RD Metabolism [address] [place], [place] [address] Health Maintenance Due Date Last Done Comments [...] filedocumented in this encounter Visit Diagnoses Diagnosis GORGE (obstructive sleep apnea) - Primary Obstructive sleep apnea (adult) (pediatric) documented in this encounter Insurance Payer Benefit Plan / Subscriber ID Effective Dates Phone Address Type Group [facility] xxxxxxxxx 2018-Present Medicaid COMM PLAN - PLUS MANAGED MEDICAID documented as of this encounter
--- OUTSIDE RECORDS SUMMARY | 2019-03-20 11:05 | XMS REPORT | Summary of Care ---
:1965 Author Organization [facility] Address [address] [place] [address] Care Team Providers Name Role Phone Lucie Giordano Primary Care Provider Reason for Referral (Routine) Status Reason Specialty Diagnoses / Referred By Referred To Procedures Contact Contact New Request Cardiology Diagnoses Leg edema Brock Ritchie MD Procedures ECHO ROUTINE W/DOPPLER COLOR Preferred Location: [address] [place] [address] (Routine) Status Reason Specialty Diagnoses / Referred By Referred To Procedures Contact Contact New Request Sleep Disorder Diagnoses GORGE (obstructive sleep apnea) Brock Ritchie, Diagnostic Procedures CONSULT/REFERRAL SLEEP CLINIC ADULT PULM Preferred Location: [address] [place] [address] Reason for Visit Reason Comments New Patient Establish Care Ekg Done in office today (STAT) Status Reason Specialty Diagnoses / Referred By Referred To Procedures Contact Contact New Request Cardiology Diagnoses Abnormal chest x-ray Bilateral lower extremity edema Lucie Giordano, Procedures CONSULT/REFERRAL CARDIOLOGY [address] [address] Encounter Details Date Type Department Care Team Description 11/08/2018 Office Visit [facility] Brock Ritchie MD Leg edema (Primary Dx); Cardiology- [address] Essential hypertension; [address] [place] [address] GORGE (obstructive sleep apnea); Drive, [address] Chronic pulmonary edema; [place], [place] [address] Morbid obesity; [address] Type 2 diabetes mellitus without complication, without long-term current use of insulin [phone] Allergies No Known Allergiesdocumented as of this [...] Sign Reading Time Taken Comments Blood Pressure 120/69 11/08/2018 11:39 AM CDT Pulse 94 11/08/2018 11:39 AM CDT Temperature - - Respiratory Rate 19 11/08/2018 11:39 AM CDT Oxygen Saturation 97% 11/08/2018 11:39 AM CDT Inhaled Oxygen Concentration - - Weight 199.3 kg (439 lb 4.8 oz) 11/08/2018 11:39 AM CDT Height - - Body Mass Index 75.41 10/06/2018 2:59 PM CDT documented in this encounter Patient Instructions Patient InstructionsBrock Ritchie MD - 11/08/2018 11:00 AM CDTStart lasix 40 mg daily and potassium 1 tablet daily Very low salt diet 12: 01 PM CDT documented in this encounter Progress Notes Brock Ritchie MD - 11/08/2018 11:00 AM CDT CARDIOLOGY CLINIC NOTE 11/08/2018 Reason for Referral/Presenting Complaint: leg edema and pulmonary congestion PCP: Lucie Giordano History of Present Illness: Sahra Dewey is a 53 years old female with history of HTN, DM and morbid obesity. She is here for feet edema and pulmonary edema. This has been going on for at least 1.5 years. Denies worsening SOB but her activity is very limited. No orthopnea. CXR showed pulmonary congestion. BNP normal. Taking BPpill but not sure about the name. Sleep study showed severe GORGE. Review of Systems: General: (-) fever, (-) chills, (-) weight change, (-) dizziness, (-) fatigue Skin: (-) rash HEENT: (-) headache, (-) change in vision Neck: (-) difficulty swallowing Heme: negative Resp: (-) cough, (-) dyspnea on exertion Cardio: (-) chest pain, (-) palpitations, (-) syncope GI: (-) vomiting, (-) diarrhea : negative Endo: (+) diabetes, (-) thyroid disease Neuro: (-) numbness, (-) tingling, (-) weakness Back: (-) pain SIMEON: (-) muscle pain, (-) claudication Psych: (-) anxiety, (-) depression Past Medical History: Past Medical History: Diagnosis Date Allergic rhinitis Arthritis Asthma Bilateral lower extremity edema Diabetes Hypertension Morbid obesity Current Medications: Current Outpatient Medications Medication Sig Dispense Refill furosemide 40 mg tablet Take 1 tablet by mouth daily. 30 tablet 1 KCL 20 mEq tablet Take 1 tablet by mouth daily. 30 tablet 3 blood sugar diagnostic (SocialthingUCH ULTRA BLUE TEST STRIP) strip Use as directed, once a day to monitor blood glucose for ICD code E11.9 90 Strip 0 Blood-Glucose Meter (SocialthingUCH ULTRA2 METER) Kit Use as directed, once a day to monitor blood glucose for ICD code E11.9 1 Kit 0 lancets (CampalystICA PLUS LANCET) 30 gauge Misc Use as directed, once a day to monitor bloodglucose for ICD code E11.9 90 Each 0 Lancing Device with Lancets (SocialthingUCH DELICA PLUS LANC DEV) Kit Use as directed, once a day to monitor blood glucose for ICD code E11.9 1 Kit 0 loratadine 10 mg tablet Take 1 tablet by mouth daily. 30 tablet 0 metFORMIN 500 mg tablet Take 1 tablet by mouth 2 (two) times daily with meals. 60 tablet 3 albuterol 90 mcg/actuation inhaler Inhale 2 Puffs every 6 (six) hours as needed for Wheezing or Shortness of Breath. fluticasone propion/salmeterol (ADVAIR DISKUS INHALE) Inhale. fluticasone propionate 50 mcg/actuation nasal spray Use 2 Sprays in each nostril daily. 16 g 0 No current facility-administered medications for this visit. Social History: Social History Socioeconomic History Marital status: Single [...] file Gets together: Not on file Attends christianity service: Not on file Active member of [...] daughter, granddaughter No domestic violence Family History Family History Problem Relation Age of Onset Other - see comments Mother TIA Hypertension Father Diabetes Father Stroke Father Physical Examination: BP 120/69 (BP Location: Right arm, Patient Position: Sitting, BP CUFF SIZE: Adult Medium) | Pulse 94 | Resp 19 | Wt 439 lb 4.8 oz (199.3 kg) | SpO2 97% | BMI 75.41 kg/m Constitutional: alert and oriented x 3 (person, place and date/time); no apparent distress ENT: normocephalic atraumatic, supple, no lymphadenopathy, no bruits, no JVD Lungs: clear to auscultation bilaterally Cardiovascular: S1, S2 normal, regular; no murmurs, rubs or gallops GI: soft; non-tender; non-distended; normoactive bowel sounds : not examined Musculoskeletal: Extremities: no clubbing, cyanosis, + edema Skin: no rashes Neuro: no focal deficits Cardiovascular testing: EKG: Normal sinus rhythm. Non-specific T wave abnormality Assessment/Plan: ICD-10-CM ICD-9-CM 1. Leg edema R60.0 782.3 2. Essential hypertension I10 401.9 3. GORGE (obstructive sleep apnea) G47.33 327.23 4. Chronic pulmonary edema J81.1 514 5. Morbid obesity E66.01 278.01 6. Type 2 diabetes mellitus without complication, without long-term current use of insulin E11.9 250.00 Leg edema with pulmonary edema, likely multifactorial from diastolic heart failure, morbid obesity, GORGE, and hypoventilation syndrome etc. Will start lasix 40 mg daily and KCL 20 mEq daily. Will get ECHO to assess structural heart disease and hemodynamics. Low salt diet discussed. GORGE--severe. Will refer to sleep medicine for further testing and C/Bi-PAP. HTN--Controlled. Bring the pill bottle next time. Morbid obesity--Will benefit from bariatric surgery given cardiac complications. Patient was counseled for lifestyle modifications including: diet, exercise and weight loss. RTC 1 month Thank you for allowing us to participate in the care of your patient. Please feel free to contact usfor any questions or if we can be of further assistance. Brock Ritchie MD, [facility], [facility] Drafter Heating And Ventilating, Division of Cardiology [facility] ; Pager documented in this encounter Plan of Treatment Date Type Specialty Care Team Description 11/09/2018 Laboratory Only Mr Teacher, Adc Cardio Fac 1, Adc Cardio Fac Room 12/12/2018 Office Visit Cardiology Brock Ritchie MD [address] [place] [address] [address] [place] [address] 12/28/2018 Office Visit Pulmonary Disease Trevon Atwood [address] [place] [address] 03/07/2019 Ammonia Technician Visit Endocrinology Diabetes & SolomonRaine nowak, RD Metabolism 26[address] [place] [address] [phone] Name Type Priority Associated Diagnoses Order Schedule EKG-12 LEAD ROUTINE HEART STATION Routine Leg edema Ordered: 11/08/2018 Health Maintenance Due Date Last Done Comments [...] filedocumented in this encounter Visit Diagnoses Diagnosis Leg edema - Primary Edema Essential hypertension Unspecified essential hypertension GORGE (obstructive sleep apnea) Obstructive sleep apnea (adult) (pediatric) Chronic pulmonary edema Pulmonary congestion and hypostasis Morbid obesity Type 2 diabetes mellitus without complication, without long-term current use of insulin documented in this encounter Insurance Payer Benefit Plan / Subscriber ID Effective Dates Phone Address Type Group [facility] xxxxxxxxx 2018-Present Medicaid COMM PLAN - PLUS MANAGED MEDICAID documented as of this encounter"
--- OUTSIDE RECORDS SUMMARY | 2019-03-20 11:05 | XMS REPORT | Summary of Care ---
:1965 Author Organization [facility] Address [address] [place] [address] Care Team Providers Name Role Phone Lucie Giordano Primary Care Provider Reason for Visit Reason Comments SNORING (Routine) Status Reason Specialty Diagnoses / Referred By Referred To Procedures Contact Contact Closed Sleep Disorder Diagnoses Witnessed episode of apnea Snoring Lucie Giordano, Diagnostic Procedures HOME SLEEP TEST TRACIE [address] [place] [address] [place] [address] Encounter Details Date Type Department Care Team Description 10/31/2018 Pyrotechnist Visit [facility] Sleep Trevon Atwood [facility]- [address] [place] [address] Dr [place] [facility] [address] [facility] [place] [address] [place] [address] Allergies No Known Allergiesdocumented as of [...] Description 11/07/2018 Office Visit Urology Beverly Wagoner, AUDIT SPEC [address] [facility] [address] [place] [address] [phone] 11/08/2018 Office Visit Cardiology Brock Ritchie MD [address] [facility] [address] [place] [address] [phone] 03/07/2019 Finish Inspector Visit Endocrinology Diabetes & SolomonRaine, RD Metabolism 26[address] [place] [address] [phone] Health Maintenance Due Date Last Done Comments [...] filedocumented in this encounter Visit Diagnoses Diagnosis Snoring Other dyspnea and respiratory abnormality documented in this encounter Insurance Payer Benefit Plan / Subscriber ID Effective Dates Phone Address Type Group [facility] xxxxxxxxx 2018-Present Medicaid COMM PLAN - PLUS MANAGED MEDICAID documented as of this encounter
--- OUTSIDE RECORDS SUMMARY | 2019-03-20 11:05 | XMS REPORT | Summary of Care ---
:1965 Author Organization [facility] Address [address] [place] [address] Care Team Providers Name Role Phone Lucie Giordano Primary Care Provider Reason for Referral (Routine) Status Reason Specialty Diagnoses / Referred By Referred To Procedures Contact Contact New Request Cardiology Diagnoses Leg edema Brock Ritchie MD Procedures ECHO ROUTINE W/DOPPLER COLOR Preferred Location: [address] [place] [address] (Routine) Status Reason Specialty Diagnoses / Referred By Referred To Procedures Contact Contact New Request Sleep Disorder Diagnoses GORGE (obstructive sleep apnea) Brock Ritchie, Diagnostic Procedures CONSULT/REFERRAL SLEEP CLINIC ADULT PULM Preferred Location: [address] [place] [address] Reason for Visit Reason Comments New Patient Establish Care Ekg Done in office today (STAT) Status Reason Specialty Diagnoses / Referred By Referred To Procedures Contact Contact New Request Cardiology Diagnoses Abnormal chest x-ray Bilateral lower extremity edema Lucie Giordano, Procedures CONSULT/REFERRAL CARDIOLOGY [address] [address] Encounter Details Date Type Department Care Team Description 11/08/2018 Office Visit [facility] Brock Ritchie MD Leg edema (Primary Dx); Cardiology- [address] Essential hypertension; [address] [place] [address] GORGE (obstructive sleep apnea); [address] Chronic pulmonary edema; [place], [place] [address] Morbid obesity; [address] Type 2 diabetes mellitus without complication, without long-term current use of insulin [phone] Allergies No Known Allergiesdocumented as of this [...] daily. 30 tablet 3 blood sugar diagnostic (Freshtake MediaUCH ULTRA BLUE TEST STRIP) strip Use as directed, once a day to monitor blood glucose for ICD code E11.9 90 Strip 0 Blood-Glucose Meter (Freshtake MediaUCH ULTRA2 METER) Kit Use as directed, once a day to monitor blood glucose for ICD code E11.9 1 Kit 0 lancets (TakipiICA PLUS LANCET) 30 gauge Misc Use as directed, once a day to monitor bloodglucose for ICD code E11.9 90 Each 0 Lancing Device with Lancets (Freshtake MediaUCH DELICA PLUS LANC DEV) Kit Use as [...] file Gets together: Not on file Attends hinduism service: Not on file Active member of [...] be of further assistance. Brock Ritchie MD, [facility], [facility] Roofing Technician, Division of Cardiology [facility] ; Pager documented in this encounter Plan of Treatment Date Type Specialty Care Team Description 11/09/2018 Laboratory Only Dry Starch Supervisor, Adc Cardio Fac 1, Adc Cardio Fac Room 12/12/2018 Office Visit Cardiology Brock Ritchie MD [address] [place] [address] [address] [place] [address] 12/28/2018 Office Visit Pulmonary Disease Trevon Atwood [address] [place] [address] 03/07/2019 Office Machine Servicer Apprentice Visit Endocrinology Diabetes & SolomonRaine nowak, RD Metabolism 26[address] [place] [address] [phone] Name Type Priority Associated Diagnoses Order Schedule [...] ID Effective Dates Phone Address Type Group [facility] xxxxxxxxx 2018-Present Medicaid COMM PLAN - PLUS MANAGED MEDICAID documented as of this encounter"
--- OUTSIDE RECORDS SUMMARY | 2019-03-20 11:06 | XMS REPORT | Summary of Care ---
:1965 Author Organization [facility] Address [address] [place] [address] Care Team Providers Name Role Phone Lucie Giordano Primary Care Provider Encounter Details Date Type Department Care Team Description 11/09/2018 Orders Only [facility] Doctor Unassigned, No [address] [facility] [place] [address] [address] [place] [address] Allergies No Known Allergiesdocumented as of this encounter (statuses as of 11/24/2018) Medications Medication Sig Dispensed Refills Start Date [...] as of this encounter (statuses as of 11/24/2018) Active Problems Problem Noted Date Morbid obesity with BMI of 70 and over, adult 10/12/2018 Type 2 diabetes mellitus without complication, without long-term current 10/12 use of insulin Bilateral lower extremity edema 10/12/2018 Snoring 10/12/2018 GORGE (obstructive sleep apnea) Morbid obesity Hypertension Diabetes documented as of this encounter (statuses as of 11/24/2018) Social History Tobacco Use Types Packs/Day Years [...] Treatment Date Type Specialty Care Team Description 12/12/2018 Office Visit Cardiology Brock Ritchie MD [address] [facility] [address] [place] [address] [phone] 12/26/2018 Office Visit Urology Robert Palma MD [address] [place] [address] 12/28/2018 Office Visit Pulmonary Disease Trevon Atwood [address] [place] [address] [phone] 03/07/2019 Loading Supervisor Visit Endocrinology Diabetes & SolomonRaine nowak, LETA Metabolism [address] [place] [address] [phone] Health Maintenance Due Date Last Done Comments PNEUMOCOCCAL 0-64 YEARS 1972 COMBINED SERIES (1 of 1 - PPSV23) EYE EXAM 1976 PAP SMEAR 07/19/1987 COLONOSCOPY 2016 Zoster Recombinant Vaccine 2016 (SHINGRIX) (1 of 2) INFLUENZA VACCINE (#1) 2018 HgA1C 04/09/2019 10/07/2018 CREATININE (SERUM) 10/08/2019 10/07/2018 LDL-C 10/08/2019 10/07/2018 MAMMOGRAM 10/18/2019 10/17/2018 DTaP,Tdap,and Td Vaccines (1 10/21/2019 Postponed from 1985 - Tdap) (Patient Refused) FOOT EXAM 10/21/2019 10/20/2018, 10/20/2018, 10/20/2018 URINE MICROALBUMIN 10/21/2019 10/20/2018 documented as of this encounter Procedures Procedure Name Priority Date/Time Associated Diagnosis Comments DME/SUPPLY JUSTIFICATION Routine 11/09/2018 12:01 AM CDT documented in this encounter Results Not on filedocumented in this encounter Insurance Payer Benefit Plan / Subscriber ID Effective Dates Phone Address Type Group [facility] xxxxxxxxx 2018-Present Medicaid COMM PLAN - PLUS MANAGED MEDICAID documented as of this encounter
--- OUTSIDE RECORDS SUMMARY | 2019-03-20 11:06 | XMS REPORT | Summary of Care ---
:1965 Author Organization [facility] Address [address] [place] [address] Care Team Providers Name Role Phone Lucie Giordano Primary Care Provider Reason for Visit Reason Comments Notification Rx Concern/Question Encounter Details Date Type Department Care Team Description 11/09/[address] [facility] Family Lucie Giordano PA Notification; Rx Medicine - [address] Concern/Question [address] [place] [id number] [phone] Allergies No Known Allergiesdocumented as of this encounter (statuses as of 11/09/2018) Medications Medication Sig Dispensed Refills Start Date [...] as of this encounter (statuses as of 11/09/2018) Active Problems Problem Noted Date Morbid obesity with BMI of 70 and over, adult 10/12/2018 Type 2 diabetes mellitus without complication, without long-term current 10/12 use of insulin Bilateral lower extremity edema 10/12/2018 Snoring 10/12/2018 GORGE (obstructive sleep apnea) Morbid obesity Hypertension Diabetes documented as of this encounter (statuses as of 11/09/2018) Social History Tobacco Use Types Packs/Day Years [...] Specialty Care Team Description 11/09/2018 Laboratory Only Aluminum Molder, Adc Cardio Fac 1, Adc Cardio Fac Room 12/12/2018 Office Visit Cardiology Brock Ritchie MD [address] [facility] [address] [place] [address] [phone] 12/28/2018 Office Visit Pulmonary Disease Trevon Atwood [address] [place] [address] [phone] 03/07/2019 Cleat Feeder Visit Endocrinology Diabetes & SolomonRaine, RD Metabolism 2660 [place] [address] [phone] Health Maintenance Due Date Last Done Comments [...] ID Effective Dates Phone Address Type Group [facility] xxxxxxxxx 2018-Present Medicaid COMM PLAN - PLUS MANAGED MEDICAID documented as of this encounter
--- OUTSIDE RECORDS SUMMARY | 2019-03-20 11:06 | XMS REPORT | Summary of Care ---
:1965 Author Organization [facility] Address [address] [place] [address] Care Team Providers Name Role Phone Lucie Giordano Primary Care Provider Reason for Visit Reason Comments Error Encounter Details Date Type Department Care Team Description 11/08/2018 Telephone [facility] Medicine Lucie Giordano PA Error - [address] [id number] [place] [address] Allergies No Known Allergiesdocumented as [...] Specialty Care Team Description 11/09/2018 Laboratory Only Check Out Clerk, Adc Cardio Fac 1, Adc Cardio Fac Room 12/12/2018 Office Visit Cardiology Brock Ritchie MD [address] [place] [address] [phone] 12/28/2018 Office Visit Pulmonary Disease Trevon Atwood [address] [place] [address] [phone] 03/07/2019 Lumber Sales Supervisor Visit Endocrinology Diabetes & SolomonRaine nowak, RD Metabolism 2660 [place] [address] [phone] Health Maintenance Due Date Last Done Comments [...] Effective Dates Phone Address Type Group [facility] xxxxxxxxx 2018-Present Medicaid COMM PLAN - PLUS MANAGED MEDICAID documented as of this encounter
--- OUTSIDE RECORDS SUMMARY | 2019-03-20 11:06 | XMS REPORT | Summary of Care ---
:1965 Author Organization [facility] Address [address] [place] [address] Care Team Providers Name Role Phone Lucie Giordano Primary Care Provider Reason for Referral (Routine) Status Reason Specialty Diagnoses / Procedures Referred By Contact Referred To Contact Closed Cardiology Diagnoses Leg edema Brock Ritchie MD Procedures ECHO ROUTINE W/DOPPLER COLOR Preferred Location: [address] [place] [address] Reason for Visit (Routine) Status Reason Specialty Diagnoses / Procedures Referred By Contact Referred To Contact Closed Cardiology Diagnoses Leg edema Brock Ritchie MD Procedures ECHO ROUTINE W/DOPPLER COLOR Preferred Location: [address] [place] [address] Encounter Details Date Type Department Care Team Description 11/14/2018 Laboratory Only [facility] Cardiology- Compa Espitia MD [address] [place] [address] Leg edema [facility] Cardio Fac [address] [place] [address], 1, [facility] Cardio Fac Room [address] [place] [address] Allergies No Known Allergiesdocumented as of this encounter (statuses as of 11/15/2018) Medications Medication Sig Dispensed Refills Start Date [...] 11/08/2018 Active tabletIndications: mouth daily. Leg edema Hospital, Clinic, or Other Ordered Dose Route Frequency Start Date End Date Status Facility Administered Medication sulfur hexafluoride 5 mL IV ONCE 11/14/2018 11/14/2018 Ended microsphr (LUMASON) injection 5 mL documented as of this encounter (statuses as of 11/15/2018) Active Problems Problem Noted Date Morbid obesity with BMI of 70 and over, adult 10/12/2018 Type 2 diabetes mellitus without complication, without long-term current 10/12 use of insulin Bilateral lower extremity edema 10/12/2018 Snoring 10/12/2018 GORGE (obstructive sleep apnea) Morbid obesity Hypertension Diabetes documented as of this encounter (statuses as of 11/15/2018) Social History Tobacco Use Types Packs/Day Years [...] Sign Reading Time Taken Comments Blood Pressure 123/70 11/14/2018 2:09 PM CDT Pulse 96 11/14/2018 2:09 PM CDT Temperature - - Respiratory Rate - - Oxygen Saturation - - Inhaled Oxygen Concentration - - Weight 199.1 kg (439 lb) 11/14/2018 2:09 PM CDT Height 162.6 cm (5' 4") 11/14/2018 2:09 PM CDT Body Mass Index 75.35 11/14/2018 2:09 PM CDT documented in this encounter Plan of Treatment Date Type Specialty Care Team Description 12/12/2018 Office Visit Cardiology Brock Ritchie MD [address] [place] [address] [address] [place] [address] [phone] 12/28/2018 Office Visit Pulmonary Disease Trevon Atwood [address] [place] [address] Dr [address] [place] [address] [phone] 03/07/2019 Energy Conservation Director Visit Endocrinology Diabetes & Raine Carbajal RD Metabolism 26[address] [place], [place] [address] Health Maintenance Due Date Last Done Comments [...] Procedure Name Priority Date/Time Associated Diagnosis Comments ECHO ROUTINE W/DOPPLER Routine 11/14/2018 2:07 PM CDT Leg edema COLOR documented in this encounter Results Not on filedocumented in this encounter Visit Diagnoses Diagnosis Leg edema Edema documented in this encounter Administered Medications Medication Order MAR Action Action Date Dose Rate Site sulfur hexafluoride microsphr Given 11/14/2018 2:40 PM CDT 5 mL (LUMASON) injection 5 mL 5 mL, Intravenous, ONCE, 1 dose, 11/14/18 at 1600, Routine documented in this encounter Insurance Payer Benefit Plan / Subscriber ID Effective Dates Phone Address Type [facility] xxxxxxxxx 2018-Present Medicaid COMM PLAN - PLUS MANAGED MEDICAID documented as of this encounter
--- OUTSIDE RECORDS SUMMARY | 2019-03-20 11:06 | XMS REPORT | Summary of Care ---
:1965 Author Organization [facility] Address [address] [place] [address] Care Team Providers Name Role Phone Lucie Giordano Primary Care Provider Reason for Visit Reason Comments Results Encounter Details Date Type Department Care Team Description 11/16/2018 Telephone [facility] Cardiology- Brock Ritchie MD Results [id number] [place] [address] [address] [place], [place] [address] [place] [phone] Allergies No Known Allergiesdocumented as of this encounter (statuses as of 11/16/2018) Medications Medication Sig Dispensed Refills Start Date [...] as of this encounter (statuses as of 11/16/2018) Active Problems Problem Noted Date Morbid obesity with BMI of 70 and over, adult 10/12/2018 Type 2 diabetes mellitus without complication, without long-term current 10/12 use of insulin Bilateral lower extremity edema 10/12/2018 Snoring 10/12/2018 GORGE (obstructive sleep apnea) Morbid obesity Hypertension Diabetes documented as of this encounter (statuses as of 11/16/2018) Social History Tobacco Use Types Packs/Day Years [...] Office Visit Cardiology Brock Ritchie MD [address] [place] [address] [phone] 12/28/2018 Office Visit Pulmonary Disease Trevon Atwood [address] [facility] [address] [place] [address] [phone] 03/07/2019 [employer] Technical Lead Senior Developer Visit Endocrinology Diabetes & SolomonRaine, RD Metabolism 2660 [place] [address] [phone] Health Maintenance Due Date Last Done Comments [...] ID Effective Dates Phone Address Type Group [facility] xxxxxxxxx 2018-Present Medicaid COMM PLAN - PLUS MANAGED MEDICAID documented as of this encounter
--- OUTSIDE RECORDS SUMMARY | 2019-03-20 11:06 | XMS REPORT | Summary of Care ---
:1965 Author Organization [facility] Address [address] [place] [address] Care Team Providers Name Role Phone Lucie Giordano Primary Care Provider Reason for Visit Reason Comments Results Encounter Details Date Type Department Care Team Description 11/16/2018 Telephone [facility] Cardiology- Brock Ritchie MD Results [address] [place] [address] [address] [place], [place] [address] [place] [phone] Allergies No Known Allergiesdocumented as of [...] MD [address] [place] [address] [phone] 12/28/2018 Office Visit Pulmonary Disease Trevon Atwood [address] [facility] [address] [place] [address] [phone] 03/07/2019 Repertoire Manager Visit Endocrinology Diabetes & SolomonRaine, RD Metabolism 26[address] [place] [address] [phone] Health Maintenance Due Date Last Done Comments [...] ID Effective Dates Phone Address Type Group [facility] xxxxxxxxx 2018-Present Medicaid COMM PLAN - PLUS MANAGED MEDICAID documented as of this encounter
--- OUTSIDE RECORDS SUMMARY | 2019-03-20 11:07 | XMS REPORT | Summary of Care ---
:1965 Author Organization [facility] [place] [address] Care Team Providers Name Role Phone Lucie Giordano Primary Care Provider Reason for Referral Consult, Test & Treat (Routine) Status Reason Specialty Diagnoses / Referred By Referred To Procedures Contact Contact Pending Consult, Cardiac Healthy Diagnoses Bariatric surgery status Morbid obesity (HCCode) Body mass index 40.0-44.9, adult (HCCode) Gastroesophageal reflux disease, esophagitis presence not specified [facility] Test, and Heart / Procedures [place] OFFICE OUTPATIENT NEW 30 MINUTES MD Aleksandr [address] [facility] Cardiology 7[address] [facility] [address] [place], [place] 8th Floor [address] [address] 8A Phone: [place], [place] [phone] Fax: Consult, Test & Treat (Routine) Status Reason Specialty Diagnoses / Referred By Referred To Procedures Contact Contact Pending Consult, Sleep Medicine / Diagnoses Bariatric surgery status Morbid obesity (HCCode) Body mass index 40.0-44.9, adult (HCCode) Gastroesophageal reflux disease, esophagitis presence not specified [facility] Test, and Sleep Center Procedures [place] OFFICE OUTPATIENT NEW 30 MINUTES MD Aleksandr [address] Treat [address] [facility] 8th Floor; 8th Floor [address] [place] [phone] Phone: Fax: Radiology Services (Routine) Status Reason Specialty Diagnoses / Procedures Referred By Contact Referred To Contact Pending Radiology Diagnoses Bariatric surgery status Morbid obesity (HCCode) Body mass index 40.0-44.9, adult (HCCode) Gastroesophageal reflux disease, esophagitis presence not specified Aleksandr Parks MD Rf Imaging Procedures FL ESOPHAGRAM COMPLETE [address] [facility] [address] [place] [address] 8th [address] [place] [address] [place] [address] Consult, Test & Treat (Routine) Status Reason Specialty Diagnoses / Referred By Referred To Procedures Contact Contact Pending Consult, Gastroenterology Diagnoses Bariatric surgery status Morbid obesity (HCCode) Body mass index 40.0-44.9, adult (HCCode) Gastroesophageal reflux disease, esophagitis presence not specified Consuelo Parks [facility] Test, and Procedures NH HEAL & BEHAV ASSESS,EA 15 MIN,INIT [place] PSYCHIATRIC DIAGNOSTIC EVALUATION MD Mabel Brandon, PhD Treat [address] [facility] 8th Floor [address] [place] [address] Phone: Fax: Consult, Test & Treat (Routine) Status Reason Specialty Diagnoses / Referred By Referred To Procedures Contact Contact Pending Consult, Test, Bariatrics Diagnoses Bariatric surgery status Morbid obesity (HCCode) Body mass index 40.0-44.9, adult (HCCode) Gastroesophageal reflux disease, esophagitis presence not specified Aleksandr Parks, Dianna Pozo, and Treat Procedures [place] MED NUTR THER, 1ST, INDIV, EA [address] [facility] 8th Floor [address] [place] [address] Reason for Visit Reason Comments Initial Consultation Consult, Test & Treat (Routine) Status Reason Specialty Diagnoses / Referred By Referred To Procedures Contact Contact Authorization Not Bariatrics Diagnoses Obesity GOVERNMENT GUARD Bariatric GOVERNMENT GUARD Bariatric GOVERNMENT GUARD Bariatric Lucie Giordano Bariatric Needed Procedures [place] OFFICE OUTPATIENT NEW 30 MINUTES [facility] [address] 8th Floor; [place], [place] [address] [address] [place], [place] Phone: [phone] Phone: Encounter Details Date Type Department Care Team Description 12/05[facility]2018 [facility]ation Medicine Bariatric [address] [facility] 8th Floor [address] [place] [address] 8th Floor; [address] [phone] [place] [address] Allergies Active Allergy Reactions Severity Noted Date Comments Iodine 12/05/2018 documented as of this encounter (statuses as of 12/12/2018) Medications Medication Sig Dispensed Refills Start Date End Date Status albuterol 108 (90 2 Puffs by 0 Active base) mcg/act Inhalation route. inhaler furosemide (LASIX) 0 12/05/2018 Active 40 MG tablet losartan (COZAAR) 50 TAKE 1 TABLET BY 2 10/18/2018 Active MG tablet MOUTH EVERY DAY metformin TAKE 1 TABLET BY 3 10/20/2018 Active (GLUCOPHAGE) 500 MG MOUTH TWICE A DAY tablet WITH MEALS potassium chloride Take 20 mEq by 0 11/08/2018 Active SA (K-DUR, KLOR-CON mouth. M20) 20 MEQ tablet documented as of this encounter (statuses as of 12/12/2018) Active Problems Not on filedocumented as of this encounter (statuses as of 12/12/2018) Social History Tobacco Use Types Packs/Day Years Used Date Never Smoker Smokeless Tobacco: Never Used Alcohol Use Drinks/Week oz/Week Comments Never Alcohol Habits Answer Date Recorded How often do you have a drink containing alcohol? Never 12/05/2018 How many drinks containing alcohol do you have on a typical Not asked day when you are drinking? How often do you have six or more drinks on one occasion? Not asked Sex Assigned at Date Recorded Not on file Job Start Date Occupation Industry Not on file Not on file Not on file Travel History Travel Start Travel End No recent travel history available. documented as of this encounter Last Filed Vital Signs Vital Sign Reading Time Taken Comments Blood Pressure 124/79 12/05/2018 2:50 PM CDT Pulse 71 12/05/2018 2:50 PM CDT Temperature 36.8 C (98.2 F) 12/05/2018 2:50 PM CDT Respiratory Rate - - Oxygen Saturation - - Inhaled Oxygen Concentration - - Weight 195.5 kg (431 lb) 12/05/2018 2:50 PM CDT Height 162.6 cm (5' 4") 12/05/2018 2:50 PM CDT Body Mass Index 73.98 12/05/2018 2:50 PM CDT documented in this encounter Progress Notes Aleksandr Parks MD - 12/05/2018 2:15 PM CDT Benjamín Ngo Department of Surgery Division of General Surgery [place] [address] Appointments: [phone] Chief Complaint Patient presents with Initial Consultation Referring Physician: Lucie Giordano [address] [place] [phone] History of Present Illness: Sahra Dewey is a 53 y.o. female with a history of lap band in 2008 who presents today for evaluation for weight loss. The patient reports that after the lap band she lost about 100 lbs within a year. The patient states she was having routine follow ups until her MD left town. The patient had no adjustments or follow up since then. She has experienced weight regain since then also. The patient deniesGERD or Dysphagia. In addition reports multiple comorbidities like diabetes and hypertension. Past Medical History: Diagnosis Date Hypertension Type 2 diabetes mellitus without complication (HCCode) Past Surgical History: Procedure Laterality Date HX GASTRIC RESTRICTION SURGERY 2008 Allergies Allergen Reactions Iodine Current Outpatient Medications Medication Sig Dispense Refill albuterol 108 (90 base) mcg/act inhaler 2 Puffs by Inhalation route. furosemide (LASIX) 40 MG tablet losartan (COZAAR) 50 MG tablet TAKE 1 TABLET BY MOUTH EVERY DAY 2 metformin (GLUCOPHAGE) 500 MG tablet TAKE 1 TABLET BY MOUTH TWICE A DAY WITH MEALS 3 potassium chloride SA (K-DUR, KLOR-CON M20) 20 MEQ tablet Take 20 mEq by mouth. No current facility-administered medications for this visit. Social History Occupational History Not on file Tobacco Use Smoking status: Never Smoker Smokeless tobacco: Never Used Substance and Sexual Activity Alcohol use: Never Frequency: Never Drug use: Never Sexual activity: Not on file Family History Problem Relation Name Age of Onset Diabetes Father Hypertension Father Review of Systems: Constitutional: positive for sleep disorder Respiratory: positive for dyspnea on exertion Cardiovascular: negative Gastrointestinal: negative Genitourinary:negative Musculoskeletal:positive for arthralgias Neurological: negative Behavioral/Psych: negative Physical Exam: BP 124/79 (BP Location: right arm, Patient Position: Sitting) | Pulse 71 | Temp 98.2 F (36.8 C) (Oral) | Ht 5' 4" (1.626 m) | Wt (!) 431 lb (195.5 kg ) | BMI 73.98 kg/m General appearance: alert, cooperative, no distress, appears stated age, morbidly obese Head: Normocephalic, without obvious abnormality, atraumatic Neck: supple, symmetrical, trachea midline and no adenopathy Lungs: clear to auscultation bilaterally Heart: regularly irregular rhythm Abdomen: soft, non-tender. Bowel sounds normal. No masses, no organomegaly Skin: Skin color, texture, turgor normal. No rashes or lesions Neurologic: Grossly normal Laboratory: No results found for: WBC, RBC, HGB No results found for: GLUCOSE, BUN, CREATININE, CO2, CALCIUM No results found for: APTT No results found for: INR Assessment: Sahra Dewey is a 53 y.o. female with h/o lap band and initial success with the device. However, herMD left town and she was not able to have continued follow ups. She experienced weight regain and isnow interested in potential revisional surgery. Plan: She will need; X Diet Evaluation x6 ?X EGD/Barium swallow X Psychological Evaluation ? PCP Letter of Necessity X Labs ordered ? Preop instructions (ERAS protocol) CONSULTATIONS- LETTERS OF CLEARANCE X Cardiology ? Rheumatology ? Nephrology x Sleep Study ? Pulmonary ? other. The patient voiced understanding and agreed the plan of care. CG. - Aleksandr Parks MD MIS/Bariatrics/Robotic Surgery [phone] documented in this encounter Plan of Treatment Name Type Priority Associated Diagnoses Order Schedule FL ESOPHAGRAM COMPLETE Imaging Routine Bariatric surgery 1 Occurrences starting status 12/05/2018 until Morbid obesity (HCCode) 06/04/2020 Body mass index 40.0-44.9, adult (HCCode) Gastroesophageal reflux disease, esophagitis presence not specified Name Type Priority Associated Diagnoses Order Schedule AMB REF TO BARIATRIC Outpatient Referral Routine Bariatric surgery Ordered: OPTICAL ASSISTANT [facility] status 12/05/2018 Morbid obesity (HCCode) Body mass index 40.0-44.9, adult (HCCode) Gastroesophageal reflux disease, esophagitis presence not specified AMB REF TO GI Outpatient Referral Routine Bariatric surgery Ordered: [facility] status 12/05/2018 Morbid obesity (HCCode) Body mass index 40.0-44.9, adult (HCCode) Gastroesophageal reflux disease, esophagitis presence not specified AMB REF TO SLEEP Outpatient Referral Routine Bariatric surgery Ordered: [facility] TO status 12/05/2018 PAP-SLEEP APNEA Morbid obesity (HCCode) Body mass index 40.0-44.9, adult (HCCode) Gastroesophageal reflux disease, esophagitis presence not specified AMB REF TO CAR Outpatient Referral Routine Bariatric surgery Ordered: [facility] status 12/05/2018 Morbid obesity (HCCode) Body mass index 40.0-44.9, adult (HCCode) Gastroesophageal reflux disease, esophagitis presence not specified Health Maintenance Due Date Last Done Comments COLON CANCER SCREENING: COLONOSCOPY 1966 TETANUS SHOT (ADULT) 1981 BMI FOLLOW UP PLAN 1984 HIV SCREENING 1984 CERVICAL CANCER SCREENING 3 YEAR FOLLOW UP 07/19/1987 FLU VACCINE > 6 MONTHS 10/27/2018 MAMMOGRAM ANNUAL 10/18/2019 10/17/2018 documented as of this encounter Results Not on filedocumented in this encounter Visit Diagnoses Diagnosis Bariatric surgery status - Primary Morbid obesity (HCCode) Morbid obesity Body mass index 40.0-44.9, adult (HCCode) Body Mass Index 40.0-44.9, adult Gastroesophageal reflux disease, esophagitis presence not specified documented in this encounter Insurance Payer Benefit Plan / Subscriber ID Effective Phone Address Type Group Dates [facility] xxxxxxxxx 2018-[place] [address] [address] Medicaid [place] [address] documented as of this encounter
--- OUTSIDE RECORDS SUMMARY | 2019-03-20 11:07 | XMS REPORT | Summary of Care ---
:1965 Author Organization [facility] Address [address] [place] [address] Care Team Providers Name Role Phone William Sheppard MD Primary Care Provider Reason for Visit Reason Comments Cardiac Clearance bariatric surgery refer by Dr. Parks Cardiology Initial Visit Consult, Test & Treat (Routine) Status Reason Specialty Diagnoses / Referred By Referred To Procedures Contact Contact Authorization Not Consult, Cardiac Healthy Diagnoses Bariatric surgery status Morbid obesity (HCCode) Body mass index 40.0-44.9, adult (HCCode) Gastroesophageal reflux disease, esophagitis presence not specified Consult, Test, and Treat Cardiac clearance [address] Needed Test, and Heart / Consult, Test, and Treat Cardiac clearance [address] [facility] MD Aleksandr Cardiology Treat Cardiology Procedures [place] OFFICE OUTPATIENT NEW 30 MINUTES [address] [facility] [place], [place] [address] [address] [place], [place] Phone: [phone] Phone: Encounter Details Date Type Department Care Team Description 01/05/2019 Office Visit [facility] of Bryan Stanford MD Cardiac Clearance Medicine Cardiology [address] [facility] (bariatric surgery [address] [facility] [address] Parks); [place] [address] [place] Cardiology Initial [phone] Visit [phone] Allergies Active Allergy Reactions Severity Noted Date Comments Iodine 12/05/2018 documented as of this encounter (statuses as of 01/05/2019) Medications Medication Sig Dispensed Refills Start Date [...] as of this encounter (statuses as of 01/05/2019) Active Problems Problem Noted Date Preoperative clearance 01/05/2019 Essential hypertension 01/05/2019 Hyperlipidemia 01/05/2019 documented as of this encounter (statuses as of 01/05/2019) Social History Tobacco Use Types Packs/Day Years [...] Sign Reading Time Taken Comments Blood Pressure 116/72 01/05/2019 2:09 PM CDT Pulse 97 01/05/2019 2:09 PM CDT Temperature - - Respiratory Rate 16 01/05/2019 2:09 PM CDT Oxygen Saturation 92% 01/05/2019 2:09 PM CDT Inhaled Oxygen Concentration - - Weight 195 kg (430 lb) 01/05/2019 2:09 PM CDT Height 162.6 cm (5' 4") 01/05/2019 2:09 PM CDT Body Mass Index 73.81 01/05/2019 2:09 PM CDT documented in this encounter Patient Instructions Patient InstructionsBryan Stanford MD - 01/05/2019 2:00 PM CDTContinue to take your medications and follow up with your commodity director at [facility]. No further testing is needed before bariatric surgery Please call with questions -It is recommended to follow a heart healthy diet that is low in salt and cholesterol. Limit portions with meals with goal of 50% of each meal including fresh fruit and vegetables. Avoid snacking between meals. Please reference choosemyplate.gov for recommendations by the US Department of Agriculture (USDA) . -It is recommended to achieve physical activity duration of 30-40 min per day, preferably 7 (but at least 5) days per week of moderate aerobic activity, such asbrisk walking, supplemented by an increase in daily lifestyle activities(e.g. , walking breaks at work, gardening, and household work). documented in this encounter Progress Notes Bryan Stanford MD - 01/05/2019 2:00 PM CDT Bryan Stanford MD PhD Department of Medicine Section of Cardiology [address] [place] [address] Date: January 05, 2019 Patient Name: Sahra Dewey Patient Date of : 1965 Chief Complaint: Chief Complaint Patient presents with Cardiac Clearance bariatric surgery refer by Dr. Parks Cardiology Initial Visit HISTORY History of Present Illness: Sahra Dewey is a 53 y.o. female with PMH of morbid obesity, HTN, HLD, DM, HFpEF (follows with Dr. Ritchie at [facility]). Had gastric banding in 2008 initially lost about 100 lbs. But has gained it all back (plus some). Isseeing Dr. Parks for possible revisional surgery. Had Echo two months ago at [facility], I am unable to see the report but based on clinic notes LVEF is normal, no mention of WMA. PA pressures unable to be estimated due to incomplete TR jet. Never gets chest pain. Is not very active due to weight, knee pains. Can do basic activities in the house (cooking, cleaning) without being too short of breath. No palpitations, dizziness, syncope, orthopnea. Does have some lower extremity edema and apparently had some pulmonary edema on CXR for whichshe is taking lasix. BP is well controlled. Takes all medications but did not take lasix yet today due to need to urinateafter lasix in car trips. Current Medications: Current Outpatient Medications Medication Sig [...] No current facility-administered medications for this visit. Allergies: Allergies Allergen Reactions Iodine Past Medical History: Past Medical History: Diagnosis Date Hypertension Type 2 diabetes mellitus without complication (HCCode) Past Surgical History: Past Surgical History: Procedure Laterality Date HX GASTRIC RESTRICTION SURGERY 2008 Social History: Social History Tobacco Use Smoking status: Never Smoker Smokeless tobacco: Never Used Substance Use Topics Alcohol use: Never Frequency: Never The patient has no history of alcohol abuse (abuse=men: >5 drinks/day or > 15 drinks/wk, women:>4 drinks/day or >8 drinks/wk). Family History: Family History Problem Relation Name Age of Onset Diabetes Father Hypertension Father Review of Systems: A full 12-system review was performed and documented below. Denies any chest pain, irregular heart beat, loss of consciousness, murmur, orthopnea, palpitations,paroxysmal nocturnal dyspnea, rapid heart rate . All other systems reviewed and negative unless stated in HPI. EXAMINATION BP 116/72 | Pulse 97 | Resp 16 | Ht 5' 4" (1.626 m) | Wt (!) 430 lb (195 kg ) | SpO2 92% | BMI 73.81 kg/m General appearance alert, cooperative, no distress, appears stated age, morbidly obese HEENT Normocephalic, without obvious abnormality, atraumatic Neck Supple, normal carotid upstroke, no carotid bruit, difficult to assess JVD due to neck size Lungs clear to auscultation bilaterally Chest wall no tenderness Heart regular rate and rhythm, S1, S2 normal, no murmur, click, rub or gallop. PMI non displaced Abdomen soft, non-tender. Bowel sounds normal Extremities extremities normal, no cyanosis, 1+ lower extremity edema b/l Pulses 2+ and symmetric MSK No joint pain or effusion Skin Skin color, texture, turgor normal. No rashes or lesions Neurologic Nonfocal DATA Laboratory Testing: No results found for this or any previous visit. Cardiology Studies: Electrocardiogram: Sinus rhythm Echocardiogram: Cardiac Stress Testing: Cardiac Catheterization: Radiology Studies: IMPRESSION Sahra Dewey is a 53 y.o. female with a history of: Patient Active Problem List Diagnosis Preoperative clearance Essential hypertension Hyperlipidemia SUMMARY AND PLAN Diagnoses and all orders for this visit: Preoperative clearance - ELECTROCARDIOGRAM COMPLETE Essential hypertension Hyperlipidemia, unspecified hyperlipidemia type According to the Revised Cardiac Risk Index/ Purdy Risk Calculator Sahra Dewey is low cardiovascular risk for surgery. According to the the ACC/AHA perioperative guidelines no further cardiac testing is necessary at this time. Sahra Dewey is currently optimized from a cardiovascular standpoint. Recent TTE apparently normal based on records from [facility] clinic notes. No indication for ischemic evaluation. Due to diabetes, would benefit from moderate statin therapy dose, however also reasonable to repeat lipids and re-evaluate A1c after surgery if significant weight loss BP well controlled today, no changes I emphasized she should follow up with sleep study and have her GORGE treated appropriately. I discussed bariatric surgery is not a replacement for healthy eating and exercise and she should follow these goals as below. Recommended to follow a heart healthy diet that is low in salt and cholesterol. Limit portions with meals with goal of 50% of each meal including fresh fruit and vegetables. Avoid snacking between meals. Please reference choosemyplate.gov for recommendations by the US Department of Agriculture (USDA) . Recommended to achieve physical activity duration of 30-40 min per day, preferably 7 (but at least 5) days per week of moderate aerobic activity, such asbrisk walking, supplemented by an increase in daily lifestyle activities(e.g. , walking breaks at work, gardening, and household work). Thank you for referring this patient for consultation and allowing me to participate in her care. Please do not hesitate to call with any questions. Bryan Stanford MD PhD [facility] Bread Dumperchiropractic doctor Section of Cardiology [id number] signed by Bryan Stanford MD at 01/05/2019 3:46 PM CDTdocumented in this encounter Plan of Treatment Date Type Specialty Care Team Description 01/20/2019 Ancillary Procedure Radiology 08/14/2019 Office Visit [facility] Omkar Cornejo MD [address] [facility] [address] [place] [address] [phone] Name Type Priority Associated Diagnoses Date/Time ELECTROCARDIOGRAM COMPLETE ECG Routine Preoperative clearance 01/05/2019 2 :12 PM CDT Health Maintenance Due Date Last Done Comments COLON CANCER SCREENING: COLONOSCOPY 1965 TETANUS SHOT (ADULT) 1981 BMI FOLLOW UP PLAN 1984 HIV SCREENING 1984 CERVICAL CANCER SCREENING 3 YEAR FOLLOW UP 07/19/1987 FLU VACCINE > 6 MONTHS 10/27/2018 MAMMOGRAM ANNUAL 10/18/2019 10/17/2018 documented as of this encounter Procedures Procedure Name Priority Date/Time Associated Diagnosis Comments ELECTROCARDIOGRAM COMPLETE Routine 01/05/2019 2:12 PM Preoperative CDT clearance documented in this encounter Results Not on filedocumented in this encounter Visit Diagnoses Diagnosis Preoperative clearance - Primary Preoperative examination, unspecified Essential hypertension Unspecified essential hypertension Hyperlipidemia, unspecified hyperlipidemia type documented in this encounter Insurance Payer Benefit Plan / Subscriber ID Effective Phone Address Type Group Dates [facility] xxxxxxxxx 2018-e [address] [address] Medicaid [place] [address] documented as of this encounter
--- NOTE | 2019-03-20 12:23 | RAD REPORT ---
EXAM DESCRIPTION: RAD - C Spine W Obliques - 03/20/2019 11:54 am CLINICAL HISTORY: intermittent left arm discomfort;Numbness/tingling COMPARISON: No comparisons FINDINGS: Cervical bodies are normal in height and alignment.No fracture or acute bony process seen. Disc thinning with posterior osteophyte present lower cervical levels. No prevertebral soft tissue thickening or other suspicious soft tissue finding. Mild narrowing of the exit foramina seen on oblique views lower cervical levels. IMPRESSION: Mild lower cervical spondylosis.
[2019-03-20 13:23] LABS: BUN Blood Urea Nitrogen 12 mg/dL (7-18); Bicarbonate 30 mmol/L (21-32); Glucose Level 121 mg/dL (74-106); Potassium 3.9 mmol/L (3.5-5.1); Sodium Level 139 mmol/L (136-145); Troponin (Emerg Dept Use Only) < 0.02 ng/mL (0.0-0.045)
[2019-03-20 13:34] LABS: Absolute Lymphocytes (CBC) 1.8 K/uL (0.7-4.9); Basophils % 0.2 % (0-1.3); Hematocrit 37.7 % (36.0-45.0); Lymphocytes % 40.6 % (15.3-44.8); MPV 8.5 fL (7.6-11.3); RBC Red Blood Cell Count 4.63 M/uL (3.86-4.86)
--- NOTE | 2019-03-20 13:49 | ER ---
Nurse's Notes [facility] Name: Sahra Dewey Age: 53 yrs Sex: Female : 1965 Arrival Date: 03/20/2019 Time: 11:03 Bed 20 Private MD: Diagnosis: Left arm discomfort: intermittent Presentation: 03/20 11:03 Presenting complaint: EMS states: tingling in left arm that has been going off and on em for a while, was seen by her doctor on and told it was neuropathy for newly diagnosed diabetic, denies hx of CVA or [place]. Transition of care: patient was not received from another setting of care. Onset of symptoms was March 20, 2019. Risk Assessment: Do you want to hurt yourself or someone else? Patient reports no desire to harm self or others. Initial Sepsis Screen: Does the patient meet any 2 criteria? No. Patient's initial sepsis screen is negative. Does the patient have a suspected source of infection? No. Patient's initial sepsis screen is negative. Care prior to arrival: None. 11:03 Method Of Arrival: EMS: [facility] em 11: Acuity: MESSI 3 ss Historical: - Allergies: 11:08 No Known Allergies; em - Home Meds: 11:08 metformin 500 mg Oral tab 1 tab 2 times per day [Active]; Zofran (as hydrochloride) 4 em mg Oral tab [Active]; potassium chloride 20 mEq Oral TbTQ [Active]; loratadine 10 mg oral tab [Active]; montelukast 10 mg oral tab [Active]; Lasix 40 mg Oral tab [Active]; - PMHx: 11:08 Asthma; Diabetes - NIDDM; Hypertension; em - PSHx: 11:08 ; Hysterectomy; em - Immunization history:: Flu vaccine is not up to date. - Social history:: Smoking status: Patient/guardian denies using tobacco. - Ebola Screening: : Patient negative for fever greater than or equal to 101.5 degrees Fahrenheit, and additional compatible Ebola Virus Disease symptoms Patient denies exposure to infectious person Patient denies travel to an Ebola-affected area in the 21 days before illness onset No symptoms or risks identified at this time. Screenin:03 Abuse screen: Denies threats or abuse. Nutritional screening: No deficits noted. em Tuberculosis screening: No symptoms or risk factors identified. Fall Risk None identified. Assessment: 11:08 General: Appears in no apparent distress. comfortable, Behavior is calm, cooperative. em Pain: Denies pain. Neuro: Level of Consciousness is awake, alert, obeys commands, Oriented to person, place, time, situation, Appropriate for age Food Safety Director are equal bilaterally Moves all extremities. Gait is steady, Speech is normal, Facial symmetry appears normal, Denies paresthesias in left arm. Cardiovascular: Capillary refill < 3 seconds Patient's skin is warm and dry. Rhythm is sinus rhythm. Respiratory: Airway is patent Respiratory effort is even, unlabored, Respiratory pattern is regular, symmetrical. GI: Abdomen is obese. Derm: Skin is intact, is healthy with good turgor, Skin is pink, warm \T\ dry. Musculoskeletal: Capillary refill < 3 seconds, Range of motion: intact in all extremities. 13:11 Reassessment: Patient appears in no apparent distress at this time. Patient and/or em family updated on plan of care and expected duration. Pain level reassessed. Patient is alert, oriented x 3, equal unlabored respirations, skin warm/dry/pink. Patient denies pain at this time. 14:13 Reassessment: Patient appears in no apparent distress at this time. Patient and/or em family updated on plan of care and expected duration. Pain level reassessed. Patient is alert, oriented x 3, equal unlabored respirations, skin warm/dry/pink. Patient denies pain at this time. Patient states symptoms have improved. Vital Signs: 11:08 BP 124 / 92; Pulse 78; Resp 18; Pulse Ox 97% on R/A; Weight 190.51 kg; Height 5 ft. 4 em in. (162.56 cm); Pain 0/10; 12:34 BP 127 / 82; Pulse 88; Resp 18; Temp 98.1(O); Pulse Ox 99% ; mh5 13:30 BP 135 / 81; Pulse 66; Resp 18; Pulse Ox 99% on R/A; Pain 0/10; em 11:08 Body Mass Index 72.09 (190.51 kg, 162.56 cm) em ED Course: 11:03 Patient arrived in ED. em 11:03 Patient has correct armband on for positive identification. Bed in low position. Call em light in reach. Side rails up X2. Adult w/ patient. Pulse ox on. NIBP on. 11:08 Arm band placed on. em 11:15 Triage completed. 11:28 Jeff Beckett MD is Attending Physician. kdr 11:55 C Spine W Obliques XRAY In Process Unspecified. EDMS 12:02 Albino Olsen LVN is Primary Nurse. em 12:29 Inserted saline lock: 22 gauge in right antecubital area, using aseptic technique. 5 12:36 EKG done, by appliance technician. reviewed by Jeff Beckett MD. at1 14:11 No provider procedures requiring assistance completed. IV discontinued, intact, em bleeding controlled, No redness/swelling at site. Pressure dressing applied. Administered Medications: No medications were administered Outcome: 13:48 Discharge ordered by . kdr 14:11 Discharged to home ambulatory. em 14:11 Condition: good 14:11 Discharge instructions given to patient, Instructed on discharge instructions, follow up and referral plans. medication usage, Demonstrated understanding of instructions, follow-up care, medications, Prescriptions given X 1. 14:15 Patient left the ED. em Signatures: Dispatcher [employer] EDAZ Jeff Beckett MD MD kdr Albino Olsen LVN PUMP TENDER em Lara Mccauley, KENYA RN Clementine Stevenson, bag shop worker EKG Tat1 Devi Ortiz 5
--- NOTE | 2019-03-20 13:50 | EDPHYS ---
Physician Documentation [facility] Name: Sahra Dewey Age: 53 yrs Sex: Female : 1965 Arrival Date: 03/20/2019 Time: 11:03 Bed 20 Private MD: ED Physician Jeff Beckett HPI: 03/20 11:38 This 53 yrs old Black Female presents to ER via EMS with complaints of tingling in left kdr arm. 11:38 The patient has had intermittent left arm discomfort. It is intermittent and lasts for kdr a few minutes with an hour or more between episodes. She has no other associated s/s. Historical: - Allergies: 11:08 No Known Allergies; em - Home Meds: 11:08 metformin 500 mg Oral tab 1 tab 2 times per day [Active]; Zofran (as hydrochloride) 4 em mg Oral tab [Active]; potassium chloride 20 mEq Oral TbTQ [Active]; loratadine 10 mg oral tab [Active]; montelukast 10 mg oral tab [Active]; Lasix 40 mg Oral tab [Active]; - PMHx: 11:08 Asthma; Diabetes - NIDDM; Hypertension; em - PSHx: 11:08 ; Hysterectomy; em - Immunization history:: Flu vaccine is not up to date. - Social history:: Smoking status: Patient/guardian denies using tobacco. - Ebola Screening: : Patient negative for fever greater than or equal to 101.5 degrees Fahrenheit, and additional compatible Ebola Virus Disease symptoms Patient denies exposure to infectious person Patient denies travel to an Ebola-affected area in the 21 days before illness onset No symptoms or risks identified at this time. ROS: 12:24 Constitutional: Negative for fever, chills, and weight loss, Eyes: Negative for injury, kdr pain, redness, and discharge, ENT: Negative for injury, pain, and discharge, Neck: Negative for injury, pain, and swelling, Cardiovascular: Negative for chest pain, palpitations, and edema, Respiratory: Negative for shortness of breath, cough, wheezing, and pleuritic chest pain, Abdomen/GI: Negative for abdominal pain, nausea, vomiting, diarrhea, and constipation, Back: Negative for injury and pain, : Negative for injury, bleeding, discharge, and swelling, MS/Extremity: Negative for injury and deformity, Skin: Negative for injury, rash, and discoloration, Neuro: Negative for headache, weakness, numbness, tingling, and seizure activity. Psych: Negative for depression, anxiety, suicide ideation, homicidal ideation, and hallucinations, Allergy/Immunology: Negative for hives, rash, and allergies, Endocrine: Negative for neck swelling, polydipsia, polyuria, polyphagia, and marked weight changes, Hematologic/Lymphatic: Negative for swollen nodes, abnormal bleeding, and unusual bruising. Exam: 12:24 Constitutional: This is a well developed, well nourished patient who is awake, alert, kdr and in no acute distress. Head/Face: Normocephalic, atraumatic. Eyes: Pupils equal round and reactive to light, extra-ocular motions intact. Lids and lashes normal. Conjunctiva and sclera are non-icteric and not injected. Cornea within normal limits. Periorbital areas with no swelling, redness, or edema. Neck: Trachea midline, no thyromegaly or masses palpated, and no cervical lymphadenopathy. Supple, full range of motion without nuchal rigidity, or vertebral point tenderness. No Meningismus. Chest/axilla: Normal chest wall appearance and motion. Nontender with no deformity. No lesions are appreciated. Cardiovascular: Regular rate and rhythm with a normal S1 and S2. No gallops, murmurs, or rubs. Normal PMI, no JVD. No pulse deficits. Respiratory: Lungs have equal breath sounds bilaterally, clear to auscultation and percussion. No rales, rhonchi or wheezes noted. No increased work of breathing, no retractions or nasal flaring. Abdomen/GI: Soft, non-tender, with normal bowel sounds. No distension or tympany. No guarding or rebound. No evidence of tenderness throughout. Back: No spinal tenderness. No costovertebral tenderness. Full range of motion. Skin: Warm, dry with normal turgor. Normal color with no rashes, no lesions, and no evidence of cellulitis. MS/ Extremity: Pulses equal, no cyanosis. Neurovascular intact. Full, normal range of motion. Neuro: Awake and alert, GCS 15, oriented to person, place, time, and situation. Cranial nerves II-XII grossly intact. Motor strength 5/5 in all extremities. Sensory grossly intact. Cerebellar exam normal. Normal gait. Psych: Awake, alert, with orientation to person, place and time. Behavior, mood, and affect are within normal limits. Vital Signs: 11:08 BP 124 / 92; Pulse 78; Resp 18; Pulse Ox 97% on R/A; Weight 190.51 kg; Height 5 ft. 4 em in. (162.56 cm); Pain 0/10; 12:34 BP 127 / 82; Pulse 88; Resp 18; Temp 98.1(O); Pulse Ox 99% ; mh5 13:30 BP 135 / 81; Pulse 66; Resp 18; Pulse Ox 99% on R/A; Pain 0/10; em 11:08 Body Mass Index 72.09 (190.51 kg, 162.56 cm) em MDM: 12:24 Data reviewed: vital signs, nurses notes, lab test result(s), radiologic studies. kdr Counseling: I had a detailed discussion with the patient and/or guardian regarding: the historical points, exam findings, and any diagnostic results supporting the discharge/admit diagnosis, lab results, radiology results, the need for outpatient follow up. 13:48 Patient medically screened. [facility] 03/20 11:36 Order name: CBC with Diff; Complete Time: 13:47 [facility] 03/20 11:36 Order name: Chem 7; Complete Time: 13:32 [facility] 03/20 11:36 Order name: C Spine W Obliques XRAY; Complete Time: 13:10 kdr 03/20 11:36 Order name: Troponin (emerg Dept Use Only); Complete Time: 13:32 [facility] 03/20 11:36 Order name: EKG - Nurse/Tech; Complete Time: 12:30 [facility] 03/20 12:53 Order name: Labs - recollect needed; Complete Time: 13:11 bd Administered Medications: No medications were administered Disposition: 03/20/19 13:48 Discharged to Home. Impression: Left arm discomfort: intermittent. - Condition is Stable. - Blank Diagnosis Outline, Medication Reconciliation Form, Thank You Letter form. - Follow up: Private Physician; When: 2 - 3 days; Reason: If symptoms return, Further diagnostic work-up, Recheck today's complaints, Continuance of care, Re-evaluation by your physician. - Problem is an ongoing problem. - Symptoms are unchanged. Signatures: Dispatcher [employer] EDMS DirAmelia auguste Kevin, MD MD kdr Albino Olsen, PRINCIPAL TRAINER PRINCIPAL TRAINER em Corrections: (The following items were deleted from the chart) 14:15 13:48 03/20/2019 13:48 Discharged to Home. Impression: Left arm discomfort: em intermittent. Condition is Stable. Forms are Medication Reconciliation Form, Thank You Letter, Antibiotic Education, Prescription Opioid Use. Follow up: Private Physician; When: 2 - 3 days; Reason: If symptoms return, Further diagnostic work-up, Recheck today's complaints, Continuance of care, Re-evaluation by your physician. Problem is an ongoing problem. Symptoms are unchanged. kdr
[2019-03-20 14:22] VITALS: TEMP 98.1; O2SAT 99
[2019-03-20 14:24] VITALS: BP 135/81
--- NOTE | 2019-03-23 08:15 | EKG ---
Test Date: 2019-03-20 Test Time: 11:14:04 Green House Manager: CLAY/Eliel MEASUREMENT RESULTS: Intervals: Rate: 68 PA: 158 QRSD: 96 QT: 430 QTc: 457 [place]: P: 53 PA: 158 QRS: 27 T: 26 INTERPRETIVE STATEMENTS: Normal sinus rhythm Normal ECG Compared to ECG 10/30/2018 01:10:11 No significant changes Electronically Signed On 03-23-19 08:10:59 KAIAWHINA KOHANGA REO by Cl Hernandez
== END 2019-03-20 14:15 | disposition home or self-care (01) ==
LOC: ER 11:01
DX: M79.602 Pain in left arm (principal); I10 Essential (primary) hypertension; E11.9 Type 2 diabetes mellitus without complications
CPT/HCPCS: 36415; 72050; 80048; 84484; 85025; 93005; 99284

== ENCOUNTER 2022-02-28 01:05 | Emergency (ER) | payer OTHER ==
--- OUTSIDE RECORDS SUMMARY | 2022-02-28 01:09 | XMS REPORT | Continuity of Care Document ---
:1965 Author Organization [facility] t Address [address] [place] [address] Care Team Providers Name Role Phone LUCIE EARL Primary Care Physician Unavailable CANDELARIO ELI Attending Clinician Unavailable DEMETRIO Attending Clinician Unavailable EMORY ASCENCIO Attending Clinician Unavailable Emory Garner Attending Clinician NOE KENNEY Attending Clinician Unavailable Doctor Unassigned, [place] Attending Clinician Unavailable Lee Atkinson MD Attending Clinician Dianna Pozo RD Attending Clinician Consuelo PhD, Katarzyna [place] Attending Clinician EDILMA STOVALL Attending Clinician Unavailable KWABENA ROBERTS Attending Clinician Unavailable KWABENA ROBERTS Attending Clinician Unavailable Lucie Garza Attending Clinician Manuela Doyle Attending Clinician MANUELA GILLILAND Attending Clinician Unavailable Bryan Stanford MD Attending Clinician Aleksandr Parks MD Attending Clinician LARON YAP Attending Clinician Unavailable MELVIN POLLOCK Attending Clinician Unavailable DEMETRIO Admitting Clinician Unavailable EMORY ASCENCIO Admitting Clinician Unavailable LARON YAP Admitting Clinician Unavailable Payers Payer Name Policy Type Policy Number Effective Date Expiration Date Rolando duarte [facility] AL[facility]ERT[facility] [id number] 2018 00:00:00 PLUS Problems Condition Condition Condition Status Onset Resolution Last Treating Co mments Source Name Details Category Date Date Treatment Clinician Date Preoperati Preoperati Disease Active 2018-03 [facility] ve ve 0-10 [place] clearance clearance 00:00: of 00 Medicin e Essential Essential Disease Active 2018-03 [employer] [place] [facility] hypertensi hypertensi 0-10 [facility]lege on on 00:00: of Medicin e Hyperlipid Hyperlipid Disease Active 2018-03 [facility] emia emia 0-10 [place] 00:00: of Medicin e Morbid Morbid Disease Active Univers obesity obesity 717 ity of 00:00: [place] 00 Medical Branch Type 2 Type 2 Disease Active Univers diabetes diabetes 7 ity of mellitus mellitus 00:00: [place] without without 00 Medical complicati complicati Br anch on, on, without without long-term long-term current current use of use of insulin insulin Bilateral Bilateral Disease Active Uni vers lower lower 10-12 [place] of extremity extremity [place] edema edema 00 [place] Snoring Snoring Disease Active Univers 7-17 ity of 00:00: [place] 00 Medical Branch GORGE GORGE Disease Active Univers (obstructi (obstructi it y of ve sleep ve sleep [place] apnea) apnea) Medical Branch Hypertensi Hypertensi Disease Active U nivers on on ity of [facility] Branch Diabetes Diabetes Disease Active Unive rs ity of [facility] Allergies, Adverse Reactions, Alerts Allergy Allergy Status Severity Reaction(s) Onset Inactive Treating Comm ents Source Name Type Date Date Clinician Iodine Propensi Active [facility] ty to 12-05 [place] adverse 00:00: of reaction 00 Medicin s to e drug IODINE DRUG Active Unknown-Cmnt Univ ers INGREDI 12-05 ity of 00:00: [place] 00 Medical Branch Iodine Propensi Active Unknown - Unive rs ty to See comments 12-05 ity of adverse 00:00: [place] reaction 00 Medical s Branch Social History Social Habit Start Date Stop Date Quantity Comments Source History [facility] ge of Alcohol Std Medicine Drinks History [facility] ge of Alcohol Binge Medicine Alcohol intake 2021-08-28 2021-08-28 Ex-drinker [facility] 00:00:00 00:00:00 (finding) [facility] Exposure to 2021-08-17 2021-08-27 Not sure University SARS-CoV-2 00:00:00 23:24:00 [facility] (event) Branch History SDOH 2018-12-05 2018-12-05 1 [facility] byron of Alcohol Frequency 00:00:00 00:00:00 Medicin e Tobacco use and 2018-10-06 2018-10-06 Never used Universit y of exposure 00:00:00 00:00:00 [facility] Sex Ass[birth year] At [birth year] Universit y of 00:00:00 00:00:00 [facility] Smoking Status Start Date Stop Date Source Never smoker [facility] Medications Ordered Filled Start Stop Current Ordering Indication Dosage Frequency Signature Comments Components Source Medication Medication Date Date Medication? Clinician (SIG) Name Name predniSONE 2021- No 40mg 40 mg, Univ ers (DELTASONE) 08-28 Oral, ity of tablet 40 08:45: 07:46 ONCE, 1 [place] mg 00 :00 dose, On Medical Ella 08/28/21 Branch at 0345, PETAR predniSONE 2021- No [id number] 40mg Take 2 Univers 20 mg 08-28 tablets by ity of tablet 00:00: 04:59 mouth [place] 00 :00 every Medical morning Branch for 4 days. KCL 20 mEq 2020-0 Yes 20meq Take 1 Univ ers tablet 1-21 tablet by ity of 00:00: mouth [place] 00 daily. Medical Branch traMADol 50 2020-0 Yes [id number] 50mg Take 1 Univers mg tablet 1-15 tablet by ity o f 00:00: mouth [place] 00 every 6 Medical (six) Branch hours as needed for Pain (scale 4-6). ibuprofen 2020-0 Yes [id number] 600mg Take 1 Univers 600 mg 1-15 tablet by ity of tablet 00:00: mouth [place] 00 every 8 Medical (eight) Branch hours as needed for Pain (scale 4-6). metFORMIN 2020-0 Yes [id number] 500mg Take 1 Univers 500 mg -02 tablet by ity of tablet 00:00: mouth 2 [place] 00 (two) Medical times Branch daily with meals. FOLLOW-UP FOR FASTING LABS/REFIL LS fluticasone 2018-03 Yes Inhale. Uni vers propion/balbir 1-20 ity of meterol 14:37: [place] (ADVAIR 44 Medical DISKUS Branch INHALE) albuterol 2018-03 Yes 2{puff} Inhale 2 U nivers 90 1-20 Puffs ity of mcg/actuati 14:37: every 6 Luis as on inhaler 44 (six) Medical hours as Branch needed for Wheezing or Shortness of Breath. LORATADINE 2018-03 Yes [id number] TAKE 1 U nivers 10 mg 0-29 TABLET BY ity of tablet 00:00: MOUTH [place] 00 EVERY DAY Medical Branch albuterol 2018-03 Yes 2{puff} 2 Puffs by [employer] (90 0-10 Inhalation [employer]) 19:09: route. of mcg/act 58 Medicin inhaler e albuterol 2018-03 Yes 2{puff} [address] [facility] 108 (90 0-10 Inhalation [facility] [employer] base) 19:09: route. of mcg/act 58 Medicin inhaler e albuterol 2018-03 Yes 2{puff} 2 Puffs by [facility] 108 (90 0-10 Inhalation [facility] [employer]) 19:09: route. of mcg/act 58 Medicin inhaler e albuterol 2018-03 Yes 2{puff} [address] [facility] 108 (90 0-10 Inhalation [facility] [employer] base) 19:09: route. of mcg/act 58 Medicin inhaler e albuterol 2018-03 Yes 2{puff} [address] [facility] 108 (90 0-10 Inhalation [employer]) 19:09: route. of mcg/act 58 Medicin inhaler e predniSONE 2021- No 50mg Take 1 Univ ers 50 mg 9-30 -02 tablet by ity of tablet 00:00: 00:00 mouth [place] 00 :00 SEE-INSTRU Medical CTIONS. Branch furosemide Yes 40mg Take 1 Unive rs 40 mg 9-20 tablet by ity of tablet 00:00: mouth [place] 00 daily. Medical Branch losartan 50 Yes 50mg Take 50 mg Univers mg tablet 9-11 by mouth ity of 00:00: daily. [place] 00 Medical Branch albuterol 2019-0 Yes 2{puff} [address] [facility] 108 (90 9-10 Inhalation Colleg [employer] base) 14:40: route. of mcg/act 56 Medicin inhaler e furosemide 2018-[address] [facility] (LASIX) 40 9-09 College MG tablet 00:00: of 00 Medicin e furosemide 2018-[address] [facility] (LASIX) 40 9-09 College MG tablet 00:00: of 00 Medicin e furosemide 2019-[address] [facility] (LASIX) 40 9-09 College MG tablet 00:00: of 00 Medicin e furosemide 2018-0 Yes [facility] (LASIX) 40 9-09 College MG tablet 00:00: of 00 Medicin e furosemide 2019-[address] [facility] (LASIX) 40 9-09 College MG tablet 00:00: of 00 Medicin e furosemide 2018-0 Yes [facility] (LASIX) 40 9-09 College MG tablet 00:00: of 00 Medicin e potassium 0 Yes 20meq Take 20 [facility] chloride SA 8-13 mEq by Colleg e (K-DUR, 00:00: mouth. of KLOR-CON Medicin M20) 20 MEQ e tablet potassium 2018-0 Yes 20meq Take 20 [facility] chloride SA 8-13 mEq by Colleg e (K-DUR, 00:00: mouth. of KLOR-CON Medicin M20) 20 MEQ e tablet potassium 2018-0 Yes 20meq Take 20 [facility] chloride SA 8-13 mEq by Colleg e (K-DUR, 00:00: mouth. of KLOR-CON Medicin M20) 20 MEQ e tablet potassium 2018-0 Yes 20meq Take 20 [facility] chloride SA 8-13 mEq by Colleg e (K-DUR, 00:00: mouth. of KLOR-CON Medicin M20) 20 MEQ e tablet potassium 2018-0 Yes 20meq Take 20 [facility] chloride SA 8-13 mEq by Colleg e (K-DUR, 00:00: mouth. of KLOR-CON Medicin M20) 20 MEQ e tablet potassium 2018-0 Yes 20meq Take 20 [facility] or chloride SA 8-13 mEq by Colleg e (K-DUR, 00:00: mouth. of KLOR-CON Medicin M20) 20 MEQ e tablet [place] Yes [id number] Use as Uni vers Device with 7-26 directed, ity of Lancets 00:00: once a day [place] (ONETOUCH 00 to monitor Medi ap DELICA PLUS blood Branch LANC DEV) glucose Kit for ICD code E11.9 lancets Yes [id number] Use as Uni vers (ONETOUCH 7-26 directed, ity o f DELICA PLUS 00:00: once a day [place] LANCET) 30 00 to monitor Med ical gauge Misc blood Branch glucose for ICD code E11.9 blood sugar Yes [id number] Use as Univers diagnostic 7-26 directed, ity of (ONETOUCH 00:00: [place] ULTRA BLUE 00 to monitor Med ical TEST STRIP) blood Branch strip glucose for ICD code E11.9 Blood-Gluco Yes [id number] Use as Univers se Meter - directed, ity of (ONETOUCH 00:00: [place] ULTRA2 00 to monitor Medical METER) Kit blood Branch glucose for ICD code E11.9 metformin Yes TAKE 1 [facility] (GLUCOPHAGE 7-25 TABLET BY Col lege ) 500 MG 00:00: MOUTH of tablet 00 TWICE A Medicin DAY WITH e MEALS metformin Yes TAKE [address] [facility] (GLUCOPHAGE 7-25 TABLET BY Col lege ) 500 MG 00:00: MOUTH of tablet 00 TWICE A Medicin DAY WITH e MEALS metformin Yes TAKE [address] [facility] (GLUCOPHAGE 7-25 TABLET BY Col lege ) 500 MG 00:00: MOUTH of tablet 00 TWICE A Medicin DAY WITH e MEALS metformin Yes TAKE [address] [facility] (GLUCOPHAGE 7-25 TABLET BY Col lege ) 500 MG 00:00: MOUTH of tablet 00 TWICE A Medicin DAY WITH e MEALS metformin Yes TAKE [address] [facility] (GLUCOPHAGE 7-25 TABLET BY Col lege ) 500 MG 00:00: MOUTH of tablet 00 TWICE A Medicin DAY WITH e MEALS metformin Yes TAKE [address] [facility] (GLUCOPHAGE 7-25 TABLET BY Col lege ) 500 MG 00:00: MOUTH of tablet 00 TWICE A Medicin DAY WITH e MEALS losartan Yes TAKE 1 [facility] (COZAAR) 50 7-23 TABLET BY Col lege MG tablet 00:00: MOUTH of 00 EVERY DAY Medicin e losartan 2018- Yes TAKE [address] [facility] (COZAAR) 50 7-23 TABLET BY Col lege MG tablet 00:00: MOUTH of 00 EVERY DAY Medicin e losartan 2018- Yes TAKE 1 [facility] (COZAAR) 50 7-23 TABLET BY Col lege MG tablet 00:00: MOUTH of 00 EVERY DAY Medicin e losartan Yes TAKE [address] [facility] (COZAAR) 50 7-23 TABLET BY Col lege MG tablet 00:00: MOUTH of 00 EVERY DAY Medicin e losartan 2018- Yes TAKE 1 [facility] (COZAAR) 50 7-23 TABLET BY Col lege MG tablet 00:00: MOUTH of 00 EVERY DAY Medicin e losartan 2018- Yes TAKE 1 [facility] (COZAAR) 50 7-23 TABLET BY Col lege MG tablet 00:00: MOUTH of 00 EVERY DAY Medicin e fluticasone 2018- Yes [id number] 2{spray Use 2 Univers propionate 7-11 } Sprays in ity of 50 00:00: each [place] mcg/actuati 00 nostril Medic al on nasal daily. Branch spray Vital Signs Vital Name Observation Time Observation Value Comments Source Systolic blood 2021-08-28 04:26:00 147 [facility]Hg[facility] Diastolic blood 2021-08-28 04:26:00 87 mm[Hg] [facility] Heart rate 2021-08-28 04:26:00 96 /min [facility] Body temperature 2021-08-28 04:26:00 36.94 [facility] Respiratory rate 2021-08-28 04:26:00 18 /min [facility] Body height 2021-08-28 04:26:00 160 cm [facility] Body weight 2021-08-28 04:26:00 195.047 kg [facility] BMI 2021-08-28 04:26:00 76.17 kg/m2 [facility] Oxygen saturation in 2021-08-28 04:26:00 97 /min [facility] blood by [facility] Pulse oximetry Branch Body height 2019-09-06 18:33:00 162.6 cm [facility] Body weight 2019-09-06 18:33:00 195.954 kg [facility] BMI 2019-09-06 18:33:00 74.15 kg/m2 [facility] Body height 2019-05-29 21:04:00 162.6 cm [facility] Body weight 2019-05-29 21:04:00 195.047 kg [facility] BMI 2019-05-29 21:04:00 73.81 kg[facility]m2 [facility] Systolic blood 2019-01-05 19:09:00 116 mm[Hg] [facility] pressure Medicine Diastolic blood 2019-01-05 19:09:00 72 mm[Hg] [facility] pressure Medicine Heart rate 2019-01-05 19:09:00 97 /min [facility] Respiratory rate 2019-01-05 19:09:00 16 /min [facility] Body height 2019-01-05 19:09:00 162.6 cm [facility] Body weight 2019-01-05 19:09:00 195.047 kg [facility] BMI 2019-01-05 19:09:00 73.81 kg/m2 [facility] Oxygen saturation in 2019-01-05 19:09:00 92 /min [facility] Arterial blood by [facility] Pulse oximetry Body weight 2018-12-05 19:50:00 195.5 kg [facility] BMI 2018-12-05 19:50:00 73.98 kg/m2 [facility] Systolic blood 2018-12-05 19:50:00 124 mm[Hg] [facility] pressure Medicine Diastolic blood 2018-12-05 19:50:00 79 mm[Hg] [facility] pressure Medicine Heart rate 2018-12-05 19:50:00 71 /min [facility] Body temperature 2018-12-05 19:50:00 36.78 Ke[facility] Body height 2018-12-05 19:50:00 162.6 cm [facility] Procedures Procedure Date / Time Performing Clinician Source Performed XR SHOULDER 2+ VW LEFT 2021-08-28 06:42:55 Emory Ascencio [facility] NOTICE OF PRIVACY PRACTICES 2021-08-28 04:13:11 Doctor Brennon zapata [facility] [place] [facility] CONSENT/REFUSAL FOR 2021-08-28 04:09:48 Chaparro Fernandez [facility] DIAGNOSIS AND TREATMENT [place] [facility] [place] ELECTROCARDIOGRAM COMPLETE 2019-01-05 19:12:00 Bryan [facility] Plan of Care Planned Activity Planned Date Details Comments Source Future Scheduled [place] [facility] Ordered: [employer] Test ASSESSMENT/RE-ASSESSMENT 09/06/2019 of Medicine [code = 91568] Future Scheduled COLON CANCER SCREENING: [facility] Test COLONOSCOPY [code = of Medic ine COLON CANCER SCREENING: COLONOSCOPY] Future Scheduled TETANUS SHOT (ADULT) [employer] Test [code = TETANUS SHOT of Medi cine (ADULT)] Future Scheduled BMI FOLLOW UP PLAN [code [facility] College Test = BMI FOLLOW UP PLAN] of Med icine Future Scheduled HIV SCREENING [code = [employer] Test HIV SCREENING] of Medicine Future Scheduled CERVICAL CANCER [facility] C ollege Test SCREENING 3 YEAR FOLLOW of M edicine UP [code = CERVICAL CANCER SCREENING 3 YEAR FOLLOW UP] Future Scheduled MAMMOGRAM ANNUAL [code = [facility] College Test MAMMOGRAM ANNUAL] of Medicin e Future Scheduled FLU VACCINE > 6 MONTHS [facility] [employer] [employer] Test [code = FLU VACCINE > 6 of M edicine MONTHS] Future Scheduled COLON CANCER SCREENING: [facility] Test COLONOSCOPY [code = of Medic ine COLON CANCER SCREENING: COLONOSCOPY] Future Scheduled TETANUS SHOT (ADULT) [employer] Test [code = TETANUS SHOT of Medi cine (ADULT)] Future Scheduled BMI FOLLOW UP PLAN [code [facility] College Test = BMI FOLLOW UP PLAN] of Med icine Future Scheduled HIV SCREENING [code = [employer] Test HIV SCREENING] of Medicine Future Scheduled CERVICAL CANCER [facility] C ollege Test SCREENING 3 YEAR FOLLOW of M edicine UP [code = CERVICAL CANCER SCREENING 3 YEAR FOLLOW UP] Future Scheduled MAMMOGRAM ANNUAL [code = [facility] Test MAMMOGRAM ANNUAL] of Medicin e Future Scheduled FLU VACCINE > 6 MONTHS [employer] Test [code = FLU VACCINE > 6 of M edicine MONTHS] Future Scheduled COLON CANCER SCREENING: [facility] Test COLONOSCOPY [code = of Medic ine COLON CANCER SCREENING: COLONOSCOPY] Future Scheduled TETANUS SHOT (ADULT) [employer] Test [code = TETANUS SHOT of Medi cine (ADULT)] Future Scheduled BMI FOLLOW UP PLAN [code [facility] Test = BMI FOLLOW UP PLAN] of Med icine Future Scheduled HIV SCREENING [code = [employer] Test HIV SCREENING] of Medicine Future Scheduled CERVICAL CANCER [facility] C [facility] Test SCREENING 3 YEAR FOLLOW of M edicine UP [code = CERVICAL CANCER SCREENING 3 YEAR FOLLOW UP] Future Scheduled FLU VACCINE > 6 MONTHS [employer] Test [code = FLU VACCINE > 6 of M edicine MONTHS] Future Scheduled MAMMOGRAM ANNUAL [code = [facility] Test MAMMOGRAM ANNUAL] of Medicin e Future Scheduled ELECTROCARDIOGRAM [facility] Test COMPLETE [code = 12856] of M edicine Future Scheduled COLON CANCER SCREENING: [facility] Test COLONOSCOPY [code = of Medic ine COLON CANCER SCREENING: COLONOSCOPY] Future Scheduled TETANUS SHOT (ADULT) [employer] Test [code = TETANUS SHOT of Medi cine (ADULT)] Future Scheduled BMI FOLLOW UP PLAN [code [facility] Test = BMI FOLLOW UP PLAN] of Med icine Future Scheduled HIV SCREENING [code = [employer] Test HIV SCREENING] of Medicine Future Scheduled CERVICAL CANCER [facility] Test SCREENING 3 YEAR FOLLOW of M edicine UP [code = CERVICAL CANCER SCREENING 3 YEAR FOLLOW UP] Future Scheduled FLU VACCINE > 6 MONTHS [employer] Test [code = FLU VACCINE > 6 of M edicine MONTHS] Future Scheduled MAMMOGRAM ANNUAL [code = [facility] Test MAMMOGRAM ANNUAL] of Medicin e Future Scheduled [place] [facility] Ordered: [employer] Test ASSESSMENT/RE-ASSESSMENT 05/04/2019 of Medicine [code = 88641] Future Scheduled COLON CANCER SCREENING: [facility] Test COLONOSCOPY [code = of Medic ine COLON CANCER SCREENING: COLONOSCOPY] Future Scheduled TETANUS SHOT (ADULT) [employer] Test [code = TETANUS SHOT of Medi cine (ADULT)] Future Scheduled BMI FOLLOW UP PLAN [code [facility] Test = BMI FOLLOW UP PLAN] of Med icine Future Scheduled HIV SCREENING [code = [employer] Test HIV SCREENING] of Medicine Future Scheduled CERVICAL CANCER [facility] C [facility]lege Test SCREENING 3 YEAR FOLLOW of M edicine UP [code = CERVICAL CANCER SCREENING 3 YEAR FOLLOW UP] Future Scheduled FLU VACCINE > 6 MONTHS [employer] Test [code = FLU VACCINE > 6 of M edicine MONTHS] Future Scheduled MAMMOGRAM ANNUAL [code = [employer] Test MAMMOGRAM ANNUAL] of Medicin e Future Scheduled COLON CANCER SCREENING: [facility] Test COLONOSCOPY [code = of Medic ine COLON CANCER SCREENING: COLONOSCOPY] Future Scheduled TETANUS SHOT (ADULT) [facility] Test [code = TETANUS SHOT of Medi cine (ADULT)] Future Scheduled BMI FOLLOW UP PLAN [code [facility] Test = BMI FOLLOW UP PLAN] of Med icine Future Scheduled [facility] of Medicine Future Scheduled CERVICAL CANCER [facility] C [facility]lege Test SCREENING 3 YEAR FOLLOW of M edicine UP [code = CERVICAL CANCER SCREENING 3 YEAR FOLLOW UP] Future Scheduled FLU VACCINE > 6 MONTHS [employer] Test [code = FLU VACCINE > 6 of M edicine MONTHS] Future Scheduled MAMMOGRAM ANNUAL [code = [facility] Test MAMMOGRAM ANNUAL] of Medicin e Future Scheduled [place] ESOPHAGRAM COMPLETE 1 Occurrences [facility] Test [code = 56645-0] starting of Medicine 12/05/2018 until 06/04/2020 Encounters Start End Encounter Admission Attending Care Care Encounter Source Date/Time Date/Time Type Type Clinicians Facility Department ID 2022-03-02 Inpatient PADMA ELI [facility] [id number] [place] 10:30:00 , CANDELARIO -[id number] [facility] 2021-10-13 2021-10-13 Outpatient VALERIE PISANO [id number] [place] 02:41:00 02:41:00 HN [id number] da [facility] Outre h Program 2021-08-27 2021-08-28 [facility] [id number] Univers 23:29:00 02:53:00 EMORY baltazar [facility] 2021-08-27 2021-08-28 Emergency [facility] [id number] Univers 23:29:00 02:53:00 Emory RITCHIE [id number] i cory [facility] [id number] [facility] [id number] [facility] 084 Branch 2019-12-06 2019-12-06 [facility] [id number] Univers 09:30:00 09:30:00 NOE baltazar [facility] 2019-11-15 2019-11-15 Outpatient [facility] [id number] Univers 10:00:00 10:00:00 NOE baltazar [facility] 2019-10-27 2019-10-27 Orders Doctor SAM [id number] 00:00:00 00:00:00 Only Unassigned, DALIA [id number] [place] [facility] [id number] 2019-10-27 2019-10-27 [facility] [id number] 00:00:00 00:00:00 Lee Ritchie [id number] [place] [id number] Professio [id number] nal 044 Building 2019-09-06 2019-09-06 Office ROSI Pozo [id number] [facility] 12:34:31 13:04:31 Visit Dianna AMBULATOR [id number] College Y 0.2.7.2.686 of [id number] [facility] 800 e 2019-09-06 2019-09-06 Office Cordero HERBER [id number] [facility] 11:41:42 12:41:42 Visit Katarzyna AMBULATOR [id number] College Mabel Y [id number] of [id number] [facility] 325 e 2019-08-16 2019-08-16 Out[facility] [id number] Univers 13:40:00 13:40:00 EDILMA arellano [facility] 2019-06-14 2019-06-14 Outpatient R KWABENA ROBERTS [facility] [id number] Univers 13:00:00 13:00:00 KWABENA ROBERTS [facility] 2019-06-07 2019-06-07 [facility]phone [facility] [id number] 00:00:00 00:00:00 Lucie [facility] [id number] [place] [id number] Professio [id number] nal 044 Office Building One 2019-03-16 2019-06-06 Office Coretta [facility] [id number] 13:19:06 18:29:06 Visit Manuela Health [id number] [place] [id number] Professio [phone] nal 044 Office Building One 2019-06-06 2019-06-06 Refill Giuliana [facility] [id number] 00:00:00 00:00:00 Lucie [facility] [id number] [place] [id number] Professio [id number] nal 044 Office Building One 2019-05-31 2019-05-31 Outpatient R KWABENA ROBERTS [facility] [id number] Univers 15:30:00 15:30:00 KWABENA ROBERTS [facility] 2019-05-29 2019-05-29 Office ROSI Pozo [id number] [place] [address] 14:43:46 16:34:00 Visit Dianna AMBULATOR [id number] College Y [id number] of [id number] [facility] 800 e 2019-05-24 2019-05-24 Patient Doctor SAM [id number] 00:00:00 00:00:00 Secure Msg Unassigned, DALIA [id number] [place] [facility] [id number] [id number] 2019-05-04 2019-05-04 Office ROSI Cordero [id number] [facility] 12:57:44 14:02:26 Visit Katarzyna AMBULATOR [id number] College Mabel Y [id number] of [id number] [facility] 325 e 2019-03-16 2019-03-16 [facility] [id number] Univers 13:20:00 14:01:40 MANUELA baltazar [facility] 2019-03-16 2019-03-16 Orders Doctor SAM [id number] 00:00:00 00:00:00 Only Unassigned, DALIA [id number] [place] [facility] 4.2.7.2.686 [id number] 2019-01-05 2019-01-05 Office ROSI Stanford [id number] [facility] 14:01:22 15:36:43 Visit Bryan AMBULATOR [id number] College Y [id number] of [id number] [facility] [facility] 315 e 2018-12-28 2018-12-28 Outpatient R KWABENA ROBERTS [facility] [id number] [facility] 11:30:00 12:01:25 KWABENA ROBERTS [facility] 2018-12-05 2018-12-05 Office ROSI Parks [id number] [facility] 14:11:00 15:22:34 Visit Aleksandr AMBULATOR [id number] [employer] [id number] of [id number] [facility] 800 e 2018-11-08 2018-11-08 Outpatient R WILMAN [facility] [id number] [facility] 11:00:00 11:00:00 EDILMA baltazar o f [facility] 2009-06-20 2009-06-20 Outpatient EL D'CARTY, [facility] [id number] 09:28:00 09:28:00 LARON -[id number] [facility] 2009-05-15 2009-05-16 Inpatient EL D'CARTY, [facility] [id number] [place] 14:26:00 14:07:00 LARON -[id number] [facility] 2008-11-05 2008-11-05 Outpatient EL D'CARTY, [facility] [id number] 12:24:00 12:24:00 LARON -[id number] [facility] 2006-11-09 2006-11-09 Emergency ER PHILL [facility] [id number] 11:28:00 14:20:00 MELVIN -[id number] [facility] Results This patient has no known results.
[2022-02-28] MEDS ORDERED: HYDROCODONE/APAP 5/325 MG TAB ONE (01:42)
[2022-02-28] MEDS ORDERED: DIAZEPAM 5 MG TABLET ONE (01:42)
--- NOTE | 2022-02-28 02:11 | EDPHYS ---
Physician Documentation [facility] Name: Sahra Dewey Age: 56 yrs Sex: Female : 1965 Arrival Date: 02/28/2022 Time: 01:10 Bed Treatment Private MD: ED Physician Piotr Velazquez HPI: 02/28 02:12 This 56 yrs old Black Female presents to ER via Wheelchair with complaints of Neck and ms3 Upper Back Pain. 02:12 The patient or guardian complains of pain. The symptoms are located on the left side of ms3 neck. Onset: The symptoms/episode began/occurred 2 hour(s) ago. Context: The problem was sustained at home, The neck injury/problem resulted from sleeping funny. Associated signs and symptoms: The patient has no apparent associated signs or symptoms. The pain does not radiate. Modifying factors: The symptoms are alleviated by nothing. the symptoms are aggravated by nothing. Severity of symptoms: At their worst the symptoms were severe, in the emergency department the symptoms are unchanged. 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 - Social history:: Smoking status: Patient denies any tobacco usage or history of. ROS: 02:12 Constitutional: Negative for fever, and chills. Eyes: Negative for injury, pain, ms3 redness, and discharge. 02:12 Respiratory: Negative for shortness of breath, cough, wheezing, and pleuritic chest pain, Abdomen/GI: Negative for abdominal pain, nausea, vomiting, diarrhea, and constipation, Skin: Negative for injury, rash, and discoloration, Neuro: Negative for headache, weakness, numbness, tingling. Psych: Negative for depression, anxiety, suicide ideation, homicidal ideation, and hallucinations. 02:12 Neck: Positive for pain with movement, pain at rest. 02:12 All other systems are negative. Exam: 02:12 Constitutional: This is a well developed, well nourished patient who is awake, alert, ms3 and in no acute distress. Head/Face: Normocephalic, atraumatic. Neck: Trachea midline, no cervical lymphadenopathy. Supple, full range of motion without nuchal rigidity, or vertebral point tenderness. No Meningismus. Chest/axilla: Normal chest wall appearance and motion. Nontender with no deformity. Cardiovascular: Regular rate and rhythm with a normal S1 and S2. No gallops, murmurs, or rubs. Normal PMI, no JVD. No pulse deficits. Respiratory: Lungs have equal breath sounds bilaterally, clear to auscultation and percussion. No rales, rhonchi or wheezes noted. No increased work of breathing, no retractions or nasal flaring. Abdomen/GI: Soft, non-tender, with normal bowel sounds. No distension or tympany. No guarding or rebound. No evidence of tenderness throughout. Skin: Warm, dry with normal turgor. Normal color with no rashes, no lesions, and no evidence of cellulitis. 02:12 Back: pain, that is moderate, muscle spasm, is appreciated in the right trapezius. Vital Signs: 01:33 BP 123 / 69; Pulse 76; Resp 18; Temp 98.5; Pulse Ox 98% on R/A; Weight 195.04 kg; tw5 Height 5 ft. 4 in. (162.56 cm); Pain 7/10; 01:33 Body Mass Index 73.81 (195.04 kg, 162.56 cm) tw5 MDM: 01:20 Patient medically screened. ms3 02:12 Data reviewed: vital signs, nurses notes, and as a result, I will discharge patient. ms3 Counseling: I had a detailed discussion with the patient and/or guardian regarding: the historical points, exam findings, and any diagnostic results supporting the discharge/admit diagnosis, the need for outpatient follow up, to return to the emergency department if symptoms worsen or persist or if there are any questions or concerns that arise at home. ED course: Patient symptoms improved after [place] and Valium. Patient is alert and oriented x4, in no apparent distress, nontoxic, sensation intact, no weakness noted. Patient to follow-up with her primary care physician in 2 to 3 days. Patient understands and agrees with plan. All questions were answered. Return precautions discussed include worsening symptoms, or any other concerns. Administered Medications: 01:42 Drug: HYDROcodone-acetaminophen 5 mg-325 mg 1 tabs Route: PO; tw5 02:12 Follow up: Response: No adverse reaction; Pain is decreased tw5 01:43 Drug: Valium (diazepam) 5 mg Route: PO; tw5 02:12 Follow up: Response: No adverse reaction; Pain is decreased tw5 Disposition Summary: 02/28/22 02:11 Discharge Ordered Location: Home ms3 Condition: Stable ms3 Diagnosis - Neck Pain ms3 - Muscle spasm ms3 Followup: ms3 - With: Cesar Patton DO - When: 2 - 3 days - Reason: Recheck today's complaints Discharge Instructions: - Discharge Summary Sheet ms3 - Muscle Cramps and Spasms ms3 - Musculoskeletal Pain ms3 Forms: - Medication Reconciliation Form ms3 - Thank You Letter ms3 - Antibiotic Education ms3 - Prescription Opioid Use ms3 Prescriptions: - Cyclobenzaprine 5 mg Oral Tablet - take 1 tablet by ORAL route 3 times per day As needed; 15 tablet; Refills: 0, ms3 Product Selection Permitted Signatures: Piotr Velazquez DO DO ms3 Shante Pardo tw5 Corrections: (The following items were deleted from the chart) 01:37 01:35 Allergies: No Known Allergies; tw5 tw5
--- NOTE | 2022-02-28 02:11 | ER ---
Nurse's Notes [facility] Name: Sahra Dewey Age: 56 yrs Sex: Female : 1965 Arrival Date: 02/28/2022 Time: 01:10 Bed Treatment Private MD: Diagnosis: Neck Pain;Muscle spasm Presentation: 02/28 01:33 Chief complaint: Patient states: "My neck hurts, then it went to my back.". Coronavirus tw5 screen: Vaccine status:. Ebola Screen: Patient negative for fever greater than or equal to 101.5 degrees Fahrenheit, and additional compatible Ebola Virus Disease symptoms Patient denies exposure to infectious person. Patient denies travel to an Ebola-affected area in the 21 days before illness onset. Initial Sepsis Screen: Does the patient meet any 2 criteria? No. Patient's initial sepsis screen is negative. Does the patient have a suspected source of infection? No. Patient's initial sepsis screen is negative. Risk Assessment: Do you want to hurt yourself or someone else? Patient reports no desire to harm self or others. Onset of symptoms was February 27, 2022 at 23:00. 01:33 Acuity: MESSI 4 tw5 01:33 Method Of Arrival: Wheelchair tw5 Triage Assessment: 01:35 General: Appears in no apparent distress. obese, Behavior is calm, cooperative, tw5 appropriate for age. Pain: Pain currently is 7 out of 10 on a pain scale. 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 - Social history:: Smoking status: Patient denies any tobacco usage or history of. Screenin:10 Abuse screen: Denies threats or abuse. Denies injuries from another. Nutritional tw5 screening: No deficits noted. Tuberculosis screening: No symptoms or risk factors identified. Fall Risk None identified. Assessment: 02:10 General: Appears in no apparent distress. obese, Behavior is calm, cooperative, tw5 appropriate for age, Patient resting comfortably in the bed talking on the phone. States pain is getting better.. Neuro: Level of Consciousness is awake, alert, obeys commands, Oriented to person, place, time, situation. Vital Signs: 01:33 BP 123 / 69; Pulse 76; Resp 18; Temp 98.5; Pulse Ox 98% on R/A; Weight 195.04 kg; tw5 Height 5 ft. 4 in. (162.56 cm); Pain 7/10; 01:33 Body Mass Index 73.81 (195.04 kg, 162.56 cm) tw5 ED Course: 01:10 Patient arrived in ED. ja2 01:11 Piotr Velazquez DO is Attending Physician. ms3 01:35 Triage completed. tw5 01:35 Arm band placed on. tw5 01:38 Shante Pardo is Primary Nurse. tw5 02:10 Cesar Patton DO is Referral Physician. ms3 02:10 Patient has correct armband on for positive identification. tw5 02:10 No provider procedures requiring assistance completed. Patient did not have IV access tw5 during this emergency room visit. Administered Medications: 01:42 Drug: HYDROcodone-acetaminophen 5 mg-325 mg 1 tabs Route: PO; tw5 02:12 Follow up: Response: No adverse reaction; Pain is decreased tw5 01:43 Drug: Valium (diazepam) 5 mg Route: PO; tw5 02:12 Follow up: Response: No adverse reaction; Pain is decreased tw5 Medication: 02:10 VIS not applicable for this client. tw5 Outcome: 02:10 Discharged to home ambulatory. tw5 02:10 Condition: good 02:10 Discharge instructions given to patient, Instructed on discharge instructions, follow up and referral plans. Demonstrated understanding of instructions, follow-up care. 02:11 Discharge ordered by . ms3 02:21 Patient left the ED. tw5 Signatures: Piotr Velazquez DO DO ms3 Lashae Benedictica ja2 Shante Pardo tw5 Corrections: (The following items were deleted from the chart) 01:37 01:35 Allergies: No Known Allergies; tw5 tw5
[2022-02-28 02:25] VITALS: BP 123/69; TEMP 98.5; O2SAT 98
== END 2022-02-28 02:21 | disposition home or self-care (01) ==
LOC: ER 01:05
DX: M62.838 Other muscle spasm (principal)
CPT/HCPCS: 99283

== ENCOUNTER 2022-03-30 11:56 | Observation (INO) | payer OTHER ==
--- OUTSIDE RECORDS SUMMARY | 2022-03-30 12:25 | XMS REPORT | Continuity of Care Document ---
:1965 Author Organization [facility] t Address [address] [place] [address] Care Team Providers Name Role Phone LUCIE EARL Primary Care Physician Unavailable CANDELARIO ELI Attending Clinician Unavailable DEMETRIO Attending Clinician Unavailable EMORY ASCENCIO Attending Clinician Unavailable Emory Garner Attending Clinician NOE KENNEY Attending Clinician Unavailable Lee Atkinson MD Attending Clinician Doctor Unassigned, [place] Attending Clinician Unavailable Dianna Pozo RD Attending Clinician Consuelo PhD, [...] Clinician Unavailable EMORY ASCENCIO Admitting Clinician Unavailable D'CARTY, LARON L Admitting Clinician Unavailable Payers Payer Name Policy Type Policy Number Effective Date Expiration Date Rolando duarte [facility] [id number] 2018 00:00:00 PLUS Problems Condition Condition Condition Status Onset Resolution Last Treating Co mments Source Name Details Category Date Date Treatment Clinician Date Preoperati Preoperati Disease Active 2018-03 [facility] ve ve 0-10 [place] clearance clearance 00:00: of 00 Medicin e Essential Essential Disease Active 2018-03 [place] [employer] hypertensi hypertensi 0-10 Co llege on on 00:00: of Medicin e Hyperlipid Hyperlipid Disease Active 2018-03 [facility] emia emia 0-10 [facility] 00:00: of Medicin e Morbid Morbid Disease Active Univers obesity obesity 717 ity of 00:00: [place] 00 Medical Branch Type 2 Type 2 Disease Active Univers diabetes diabetes 10-12 ity of mellitus mellitus 00:00: [place] without [...] Active U nivers on on ity of [facility] Branch Diabetes Diabetes Disease Active Unive rs ity of [facility] Allergies, Adverse Reactions, Alerts Allergy Allergy Status Severity Reaction(s) Onset Inactive Treating Comm ents Source Name Type Date Date Clinician Iodine Propensi Active [facility] ty to 12-05 [place] adverse 00:00: of reaction 00 Medicin s to e drug IODINE DRUG Active Unknown-Cmnt Univ ers INGREDI 12-05 ity of 00:00: [place] 00 Medical Branch Iodine Propensi Active Unknown - Unive rs ty to See comments 12-05 ity of adverse 00:00: [place] reaction 00 Medical s Branch Social History Social Habit Start Date Stop Date Quantity Comments Source History [facility] ge of Alcohol Std Medicine Drinks History [facility] ge of Alcohol Binge Medicine Alcohol intake 2021-08-28 2021-08-28 Ex-drinker [facility] 00:00:00 00:00:00 (finding) [facility] Exposure to 2021-08-17 2021-08-27 Not sure University SARS-CoV-2 00:00:00 23:24:00 [facility] (event) Branch History SDOH 2018-12-05 2018-12-05 1 [facility] Mehul ge of Alcohol Frequency 00:00:00 00:00:00 Medicin e Tobacco use and 2018-10-06 2018-10-06 Never used Universit y of exposure 00:00:00 00:00:00 [facility] Sex [birth year] At [birth year] Universit y of 00:00:00 00:00:00 [facility] Smoking Status Start Date Stop Date Source [...] Branch at 0345, PETAR predniSONE 2021- No [id number] 40mg Take 2 Univers 20 mg 08-28 tablets by ity of tablet 00:00: 04:59 mouth [place] 00 :00 every Medical morning Branch for 4 days. KCL 20 mEq 2019-0 Yes 20meq Take 1 Univ ers tablet 1-21 tablet by ity of 00:00: mouth [place] 00 daily. Medical Branch traMADol 50 2020-0 Yes [id number] 50mg Take 1 Univers mg tablet 1-15 tablet by ity o f 00:00: mouth [place] 00 every 6 Medical (six) Branch hours as needed for Pain (scale 4-6). ibuprofen 2020-0 Yes [id number] 600mg Take 1 Univers 600 mg 1-15 tablet by ity of tablet 00:00: mouth [place] 00 every 8 Medical (eight) Branch hours as needed for Pain (scale 4-6). metFORMIN 2020-0 Yes [id number] 500mg Take 1 Univers 500 mg -02 [...] or Shortness of Breath. LORATADINE 2018-03 Yes [id number] TAKE 1 U nivers 10 mg 0-29 TABLET BY ity of tablet 00:00: MOUTH [place] 00 EVERY DAY Medical Branch albuterol 2018-03 Yes 2{puff} 2 Puffs by [facility] 108 (90 0-10 Inhalation Colleg [employer] base) [...] albuterol 2018-03 Yes 2{puff} 2 Puffs by [facility] 108 (90 0-10 Inhalation Colleg [employer] base) 19:09: route. of mcg/act 58 Medicin inhaler e albuterol 2018-03 Yes 2{puff} 2 Puffs by [facility] 108 (90 0-10 Inhalation [employer] base) [...] 9-11 by mouth ity of 00:00: daily. [address] albuterol 2019-0 Yes 2{puff} 2 Puffs by [facility] 108 (90 9-10 Inhalation Colleg e base) 14:40: route. of mcg/act 56 Medicin inhaler e furosemide 2018-0 Yes [facility] [place] (LASIX) 40 9-09 College MG tablet 00:00: of 00 Medicin e furosemide 2018-0 Yes [facility] (LASIX) 40 9-09 College MG tablet 00:00: of 00 Medicin e furosemide 2019-0 Yes [facility] (LASIX) 40 9-09 College MG tablet 00:00: of 00 Medicin e furosemide 2018-0 Yes [facility] (LASIX) 40 9-09 College MG tablet 00:00: of 00 Medicin e furosemide 2019-0 Yes [facility] (LASIX) 40 9-09 College MG [...] Medicin M20) 20 MEQ e tablet potassium 2019-0 Yes 20meq Take 20 [facility] [employer] chloride SA 8-13 mEq by Colleg e (K-DUR, 00:00: mouth. of KLOR-CON Medicin M20) 20 MEQ e tablet potassium 2018-0 Yes 20meq Take 20 [facility] [employer] chloride SA 8-13 mEq by Colleg e (K-DUR, 00:00: mouth. of KLOR-CON Medicin M20) 20 MEQ e tablet [place] Yes [id number] Use as Uni vers Device with 7- directed, ity of Lancets 00:00: once a day [place] (ONETOUCH 00 to monitor Medi ap DELICA PLUS blood Branch LANC DEV) glucose Kit for ICD code E11.9 lancets Yes [id number] Use as Uni vers (ONETOUCH -26 directed, ity o f DELICA PLUS 00:00: once a day [place] LANCET) 30 00 to monitor Med ical gauge Misc blood Branch glucose for ICD code E11.9 blood sugar Yes [id number] Use as Univers diagnostic 7- directed, ity of (ONETOUCH 00:00: [place] ULTRA BLUE 00 to monitor Med ical TEST STRIP) blood Branch strip glucose for ICD code E11.9 Blood-Gluco Yes [id number] Use as Univers se Meter - directed, ity of (ONETOUCH 00:00: [place] ULTRA2 00 to monitor Medical METER) Kit blood Branch glucose for ICD code E11.9 metformin Yes TAKE 1 [facility] (GLUCOPHAGE 7-25 TABLET BY Col lege ) 500 MG 00:00: MOUTH of tablet 00 TWICE A Medicin DAY WITH e MEALS metformin Yes TAKE 1 [facility] (GLUCOPHAGE 7-25 TABLET BY Col lege ) 500 MG 00:00: MOUTH of tablet 00 TWICE A Medicin DAY WITH e MEALS metformin Yes TAKE 1 [facility] (GLUCOPHAGE 7-25 TABLET BY Col lege ) 500 MG 00:00: MOUTH of tablet 00 TWICE A Medicin DAY WITH e MEALS metformin Yes TAKE 1 [facility] [place] (GLUCOPHAGE 7-25 TABLET BY Col lege ) 500 MG 00:00: MOUTH of tablet 00 TWICE A Medicin DAY WITH e MEALS metformin Yes TAKE 1 [facility] [place] (GLUCOPHAGE 7-25 TABLET BY Col lege ) 500 MG 00:00: MOUTH of tablet 00 TWICE A Medicin DAY WITH e MEALS metformin Yes TAKE 1 [facility] (GLUCOPHAGE 7-25 [...] Medicin e losartan 2018- Yes TAKE 1 [facility] (COZAAR) 50 7-23 TABLET BY Col lege MG tablet 00:00: MOUTH of 00 EVERY DAY Medicin e losartan 2018- Yes TAKE 1 [facility] [place] (COZAAR) 50 7-23 TABLET BY Col lege MG tablet 00:00: MOUTH of 00 EVERY DAY Medicin e fluticasone 2018- Yes [id number] 2{spray Use 2 Univers propionate 7-11 } Sprays in ity of 50 00:00: each [place] mcg/actuati 00 nostril Medic al on nasal daily. Branch spray Vital Signs Vital Name Observation Time Observation Value Comments Source Systolic blood 2021-08-28 04:26:00 147 mm[facility]Hg[facility] Diastolic blood 2021-08-28 04:26:00 87 mm[Hg] [facility] Heart rate 2021-08-28 04:26:00 96 /min [facility] Body temperature 2021-08-28 04:26:00 36.94 Keke [facility] Res[facility] 2021-08-28 04:26:00 18 /min [facility] Body height 2021-08-28 04:26:00 160 cm [facility] Body weight 2021-08-28 04:26:00 195.047 kg [facility] BMI 2021-08-28 04:26:00 76.17 kg/m2 [facility] Oxygen saturation in 2021-08-28 04:26:00 97 /min [facility] blood by [facility] Pulse oximetry Branch Body height 2019-09-06 18:33:00 162.6 cm [facility] ollege of Medicine Body weight 2019-09-06 18:33:00 195.954 kg [facility] ol[facility] of Medicine BMI 2019-09-06 18:33:00 74.15 kg/m2 [facility] of Medicine Body height 2019-05-29 21:04:00 162.6 cm [facility] of Medicine Body weight 2019-05-29 21:04:00 195.047 kg [facility] of Medicine BMI 2019-05-29 21:04:00 73.81 [facility]m2 [facility] Systolic blood 2019-01-05 19:09:00 116 mm[Hg] [facility] pressure Medicine Diastolic blood 2019-01-05 19:09:00 72 mm[Hg] [facility] Medicine Heart rate 2019-01-05 19:09:00 97 /min [facility] Respiratory rate 2019-01-05 19:09:00 16 /min [facility] Body height 2019-01-05 19:09:00 162.6 cm [facility] Body weight 2019-01-05 19:09:00 195.047 kg [facility] BMI 2019-01-05 19:09:00 73.81 kg/m2 [facility] Oxygen saturation in 2019-01-05 19:09:00 92 /min [facility] blood by [facility] Pulse oximetry Body temperature 2018-12-05 19:50:00 36.78 [facility] Body height 2018-12-05 19:50:00 162.6 cm [facility] Body weight 2018-12-05 19:50:00 195.5 kg [facility] BMI 2018-12-05 19:50:00 73.98 kg/m2 [facility] Systolic blood 2018-12-05 19:50:00 124 mm[Hg] [facility] pressure Medicine Diastolic blood 2018-12-05 19:50:00 79 mm[Hg] [facility] pressure Medicine Heart rate 2018-12-05 19:50:00 71 /min [facility] Procedure Date / Time Performing Clinician Source Performed XR SHOULDER 2+ VW LEFT 2021-08-28 06:42:55 [facility] Ascencio [facility] NOTICE OF PRIVACY PRACTICES 2021-08-28 04:13:11 Doctor Brennon zapata [facility] [place] [facility] CONSENT/REFUSAL FOR 2021-08-28 04:09:48 Chaparro Fernandez [facility] DIAGNOSIS AND TREATMENT [place] [facility] [place] ELECTROCARDIOGRAM COMPLETE 2019-01-05 19:12:00 Bryan [facility] Plan of Care Planned Activity Planned Date Details Comments Source Future Scheduled [facility] Ordered: [employer] Test ASSESSMENT/RE-ASSESSMENT 09/06/2019 of Medicine [code = 56875] Future Scheduled COLON CANCER SCREENING: [facility] Test COLONOSCOPY [code = of Medic ine COLON CANCER SCREENING: COLONOSCOPY] Future Scheduled TETANUS SHOT (ADULT) [employer] Test [code = TETANUS SHOT of Medi cine (ADULT)] Future Scheduled BMI FOLLOW UP PLAN [code [facility] Test = BMI FOLLOW UP PLAN] of Med icine Future Scheduled HIV SCREENING [code = [employer] Test HIV SCREENING] of Medicine Future Scheduled CERVICAL CANCER [facility] C ollege Test SCREENING 3 YEAR FOLLOW of M edicine UP [code = CERVICAL CANCER SCREENING 3 YEAR FOLLOW UP] Future Scheduled MAMMOGRAM ANNUAL [code = [facility] Test MAMMOGRAM ANNUAL] of Medicin e Future Scheduled FLU VACCINE > 6 MONTHS [employer] Test [code = FLU VACCINE > 6 of M edicine MONTHS] Future Scheduled COLON CANCER SCREENING: [facility] Test COLONOSCOPY [code = of Medic ine COLON CANCER SCREENING: COLONOSCOPY] Future Scheduled TETANUS SHOT (ADULT) [employer] Test [code = TETANUS SHOT of Medi cine (ADULT)] Future Scheduled BMI FOLLOW UP PLAN [code [facility] Test = BMI FOLLOW UP PLAN] of Med icine Future Scheduled HIV SCREENING [code = [employer] Test HIV SCREENING] of Medicine Future Scheduled CERVICAL CANCER [facility]lege Test SCREENING 3 YEAR FOLLOW of M edicine UP [code = CERVICAL CANCER SCREENING 3 YEAR FOLLOW UP] Future Scheduled MAMMOGRAM ANNUAL [code = [facility] [employer] Test MAMMOGRAM ANNUAL] of Medicin e Future Scheduled FLU VACCINE > 6 MONTHS [employer] Test [code = FLU VACCINE > 6 of M edicine MONTHS] Future Scheduled COLON CANCER SCREENING: [facility] [employer] Test COLONOSCOPY [code = of Medic ine COLON CANCER SCREENING: COLONOSCOPY] Future Scheduled TETANUS SHOT (ADULT) [employer] Test [code = TETANUS SHOT of Medi cine (ADULT)] Future Scheduled BMI FOLLOW UP PLAN [code [employer] Test = BMI FOLLOW UP PLAN] of Med icine Future Scheduled HIV SCREENING [code = [employer] Test HIV SCREENING] of Medicine Future Scheduled CERVICAL CANCER [facility] Test SCREENING 3 YEAR FOLLOW of M edicine UP [code = CERVICAL CANCER SCREENING 3 YEAR FOLLOW UP] Future Scheduled FLU VACCINE > 6 MONTHS [employer] Test [code = FLU VACCINE > 6 of M edicine MONTHS] Future Scheduled MAMMOGRAM ANNUAL [code = [facility] [employer] Test MAMMOGRAM ANNUAL] of Medicin e Future Scheduled ELECTROCARDIOGRAM [facility] [employer] Test COMPLETE [code = 95479] of M edicine Future Scheduled COLON CANCER SCREENING: [facility] Test COLONOSCOPY [code = of Medic ine COLON CANCER SCREENING: COLONOSCOPY] Future Scheduled TETANUS SHOT (ADULT) [employer] Test [code = TETANUS SHOT of Medi cine (ADULT)] Future Scheduled BMI FOLLOW UP PLAN [code [facility] Test = BMI FOLLOW UP PLAN] of Med icine Future Scheduled HIV SCREENING [code = [employer] Test HIV SCREENING] of Medicine Future Scheduled CERVICAL CANCER [facility] Test SCREENING 3 YEAR FOLLOW of M edicine UP [code = CERVICAL CANCER SCREENING 3 YEAR FOLLOW UP] Future Scheduled FLU VACCINE > 6 MONTHS [employer] Test [code = FLU VACCINE > 6 of M edicine MONTHS] Future Scheduled MAMMOGRAM ANNUAL [code = [facility] Test MAMMOGRAM ANNUAL] of Medicin e Future Scheduled [facility] Ordered: [employer] Test ASSESSMENT/RE-ASSESSMENT 05/04/2019 of Medicine [code = 71400] Future Scheduled COLON CANCER SCREENING: [facility] Test COLONOSCOPY [code = of Medic ine COLON CANCER SCREENING: COLONOSCOPY] Future Scheduled TETANUS SHOT (ADULT) [employer] Test [code = TETANUS SHOT of Medi cine (ADULT)] Future Scheduled BMI FOLLOW UP PLAN [code [facility] Test = BMI FOLLOW UP PLAN] of Med icine Future Scheduled HIV SCREENING [code = [employer] Test HIV SCREENING] of Medicine Future Scheduled CERVICAL CANCER [facility] Test SCREENING 3 YEAR FOLLOW of M edicine UP [code = CERVICAL CANCER SCREENING 3 YEAR FOLLOW UP] Future Scheduled FLU VACCINE > 6 MONTHS [employer] Test [code = FLU VACCINE > 6 of M edicine MONTHS] Future Scheduled MAMMOGRAM ANNUAL [code = [employer] Test MAMMOGRAM ANNUAL] of Medicin e Future Scheduled COLON CANCER SCREENING: [facility] Test COLONOSCOPY [code = of Medic ine COLON CANCER SCREENING: COLONOSCOPY] Future Scheduled TETANUS SHOT (ADULT) [facility] Test [code = TETANUS SHOT of Medi cine (ADULT)] Future Scheduled BMI FOLLOW UP PLAN [code [facility] Test = BMI FOLLOW UP PLAN] of Med icine Future Scheduled [facility] of Medicine Future Scheduled CERVICAL CANCER [facility]lege Test SCREENING 3 YEAR FOLLOW of M edicine UP [code = CERVICAL CANCER SCREENING 3 YEAR FOLLOW UP] Future Scheduled FLU VACCINE > 6 MONTHS [employer] Test [code = FLU VACCINE > 6 of M edicine MONTHS] Future Scheduled MAMMOGRAM ANNUAL [code = [facility] Test MAMMOGRAM ANNUAL] of Medicin e Future Scheduled [place] ESOPHAGRAM COMPLETE 1 Occurrences [facility] Test [code = 39680-5] starting of Medicine 12/05/2018 until 06/04/2020 Encounters Start End Encounter Admission Attending Care Care Encounter Source Date/Time Date/Time Type Type Clinicians Facility Department ID 2022-04-21 [facility] [id number] [place] 11:00:00 , CANDELARIO -[id number] [facility] 2022-03-20 Inpatient [facility] [id number] [place] 11:00:00 , CANDELARIO -[id number] [facility] 2022-03-02 Inpatient [facility] [id number] [place] 11:00:00 , CANDELARIO -[id number] [facility] 2021-10-13 2021-10-13 Outpatient VALERIE PISANO TNCHELY [address] [place] 02:41:00 02:41:00 HN 0718 da [facility] 2021-08-27 2021-08-28 Emergency X ENDY ASCENCIO ERT [id number] Univers 23:29:00 02:53:00 EMORY baltazar [facility] 2021-08-27 2021-08-28 Emergency ENDY Ascencio [id number] Univers 23:29:00 02:53:00 Emory RITCHIE [id number] i ty [facility] 4.2.7.2.686 [facility] [phone] [facility] 084 Branch 2019-12-06 2019-12-06 Outpatient [facility] [id number] Univers 09:30:00 09:30:00 NOE baltazar [facility] 2019-11-15 2019-11-15 Outpatient R [facility] [id number] Univers 10:00:00 10:00:00 NOE baltazar [facility] 2019-10-27 2019-10-27 [facility] [id number] 00:00:00 00:00:00 Wonpietro Ritchie [id number] [place] 4.2.7.2.686 Profess [phone] 2019-10-27 2019-10-27 Orders Doctor SAM [id number] 00:00:00 00:00:00 Only Unassigned, DALIA [id number] [place] [facility] [id number] [id number] 2019-09-06 2019-09-06 Office ROSI Pozo [id number] [place] [address] 12:34:31 13:04:31 Visit Dianna AMBULATOR [id number] College Y 0.2.7.2.686 of [id number] [facility] gato 800 e 2019-09-06 2019-09-06 Office ROSI Cordero [id number] [place] [address] 11:41:42 12:41:42 Visit Katarzyna AMBULATOR [id number] College Mabel Y 0.2.7.2.686 of [id number] [facility] gato 325 e 2019-08-16 2019-08-16 Outpatient R [facility] [id number] Univers 13:40:00 13:40:00 EDILMA arellano [facility] 2019-06-14 2019-06-14 Outpatient R KWABENA [facility] [id number] Univers 13:00:00 13:00:00 ATANASOV, STRAHIL [facility] 2019-06-07 2019-06-07 [facility]phone [facility] [id number] 00:00:00 00:00:00 Lucie [facility] [id number] [place] 4.2.7.2.686 Professio [phone] [place] [address] [address] 2019-03-16 2019-06-06 Office Coretta [facility] [id number] 13:19:06 18:29:06 Visit Manuela [facility] [id number] [place] 4.2.7.2.686 Professio [phone] [place] [address] Office Building [facility] 2019-06-06 2019-06-06 Refill Giuliana [facility] [id number] 00:00:00 00:00:00 Lucie [facility] [id number] [place] 4.2.7.2.686 Professio [phone] [place] [address] Office [facility] 2019-05-31 2019-05-31 Outpatient R KWABENA [facility] [id number] Univers 15:30:00 15:30:00 KWABENA ROBERTS [facility] 2019-05-29 2019-05-29 Office ROSI Pozo [id number] [facility] 14:43:46 16:34:00 Visit Dianna AMBULATOR [id number] College Y 0.2.7.2.686 of [id number] [facility] 800 e 2019-05-24 2019-05-24 Patient Doctor SAM [id number] 00:00:00 00:00:00 Secure Msg Unassigned, DALIA [id number] [facility] 4.2.7.2.686 [id number] 2019-05-04 2019-05-04 Office ROSI Cordero [id number] [facility] 12:57:44 14:02:26 Visit Katarzyna AMBULATOR [id number] College Mabel Y 0.2.7.2.686 of [id number] [facility] 325 e 2019-03-16 2019-03-16 Outpatient R CORET[facility] [id number] Univers 13:20:00 14:01:40 MANUELA josé [facility] 2019-03-16 2019-03-16 Orders Doctor SAM [id number] 00:00:00 00:00:00 Only Unassigned, DALIA 350.1.13.10 [facility] 4.2.7.2.686 [id number] 2019-01-05 2019-01-05 Office HERBER [facility] [id number] [facility] 14:01:22 15:36:43 Visit Bryan AMBULATOR [id number] College Y 0.2.7.2.686 of [id number] [facility] 315 e 2018-12-28 2018-12-28 Outpatient R KWABENA [facility]ERTS [facility] [id number] Univers 11:30:00 12:01:25 KWABENA ROBERTS [facility] 2018-12-05 2018-12-05 Office ROSI Parks [id number] [facility] 14:11:00 15:22:34 Visit Aleksandr AMBULATOR [id number] College Y 0.2.7.2.686 of [id number] [facility] 800 e 2018-11-08 2018-11-08 Outpatient Filomena STOVALL[facility] [id number] Univers 11:00:00 11:00:00 EDILMA eastman f [facility] 2009-06-20 2009-06-20 Outpatient EL D'CARTY, [facility] [id number] [place] 09:28:00 09:28:00 LARON -[id number] [facility] 2009-05-15 2009-05-16 Inpatient EL DJOSE, [facility] [id number] [place] 14:26:00 14:07:00 LARON -[id number] [facility] 2008-11-05 2008-11-05 Outpatient EL DJOSE, [facility] [id number] [place] 12:24:00 12:24:00 LARON -[id number] [facility] 2006-11-09 2006-11-09 Emergency ER PHILL [facility] [id number] [place] 11:28:00 14:20:00 CLENATHEN -[id number] [facility] Results This patient has no known results.
[2022-03-30 13:07] LABS: Absolute Lymphocytes (CBC) 1.7 K/uL (0.7-4.9); Hematocrit 35.8 % (36.0-45.0); Lymphocytes % 32.8 % (15.3-44.8); MCV 81.5 fL (80-100); MPV 7.8 fL (7.6-11.3); RBC Red Blood Cell Count 4.39 M/uL (3.86-4.86)
[2022-03-30 13:08] LABS: Protime INR 1.13
--- NOTE | 2022-03-30 13:09 | RAD REPORT ---
EXAM DESCRIPTION: Xiang Single View03/30/2022 12:59 pm CLINICAL HISTORY: Chest pain COMPARISON: 2019 FINDINGS: The lungs are hazy. The heart is normal size IMPRESSION: Lungs are hazy. This could be secondary to overlying soft tissue or infiltrate. PA and lateral chest series recommended
[2022-03-30 13:22] LABS: Albumin 2.8 g/dL (3.4-5.0); Bilirubin Direct 0.2 mg/dL (0-0.2); Bilirubin Total 0.5 mg/dL (0.2-1.0); Magnesium 2.1 mg/dL (1.6-2.4); Potassium 3.6 mmol/L (3.5-5.1); Protein, Total 7.6 g/dL (6.4-8.2); Troponin High Sensitivity 5.5 pg/mL (<58.9)
[2022-03-30] MEDS ORDERED: DIPHENHYDRAMINE 50 MG/ML VIAL ONE (13:25)
[2022-03-30] MEDS ORDERED: METHYLPREDNISOLONE 125 MG INJ ONE (13:25)
[2022-03-30] MEDS ORDERED: FAMOTIDINE 20 MG/2 ML VIAL IV ONE (13:26)
--- NOTE | 2022-03-30 13:58 | RAD REPORT ---
EXAM DESCRIPTION: CT - Chest Abd Pelvis Wo Con - 03/30/2022 1:37 pm CLINICAL HISTORY: Chest and abdominal pain COMPARISON: 2014 TECHNIQUE: Computed axial tomography of the chest, abdomen and pelvis was obtained. Oral contrast wa s given. IV contrast was not requested. All CT scans are performed using dose optimization technique as appropriate and may include automated exposure control or mA/KV adjustment according to patient size. FINDINGS: The evaluation of mediastinum, mahad, vessels and solid organs is limited secondary to the lack of IV contrast administration The lungs are clear No mediastinal or hilar lymphadenopathy is seen. A pleural effusion is not present. A pericardial effusion is not seen. The liver, spleen, pancreas, adrenals and kidneys appear grossly normal There is no evidence of diverticulitis. Normal appendix Cholelithiasis. The gallbladder wall thickening Postsurgical changes involve stomach IMPRESSION: Cholelithiasis without gallbladder wall thickening
--- NOTE | 2022-03-30 14:14 | ER ---
Nurse's Notes [facility] Name: Sahra Dewey Age: 56 yrs Sex: Female : 1965 Arrival Date: 03/30/2022 Time: 12:10 Bed 25 Private MD: Diagnosis: Chest pain, unspecified;Acute Kidney Injury Presentation: 03/30 12:12 Chief complaint: Patient states: ABD pain, D/N X 3 days. Subsided at time of arrival. ld1 Chest pain began last night - intermittent. Coronavirus screen: At this time, the client does not indicate any symptoms associated with coronavirus-19. Ebola Screen: No symptoms or risks identified at this time. Initial Sepsis Screen: Does the patient meet any 2 criteria? No. Patient's initial sepsis screen is negative. Does the patient have a suspected source of infection? No. Patient's initial sepsis screen is negative. Risk Assessment: Do you want to hurt yourself or someone else? Patient reports no desire to harm self or others. Onset of symptoms was March 30, 2022. 12:12 Method Of Arrival: EMS: [facility] ld1 12:12 Acuity: MESSI 3 ld1 Triage Assessment: 12:14 General: Appears in no apparent distress. comfortable, Behavior is calm, cooperative, ld1 appropriate for age. Pain: Complains of pain in anterior aspect of left upper chest Pain does not radiate. Pain currently is 0 out of 10 on a pain scale. at worst was 7 out of 10 on a pain scale. Quality of pain is described as throbbing, Pain began suddenly, Is intermittent. EENT: No signs and/or symptoms were reported regarding the EENT system. Neuro: Level of Consciousness is awake, alert, obeys commands, Oriented to person, place, time, situation. Cardiovascular: Capillary refill < 3 seconds Patient's skin is warm and dry. Rhythm is sinus rhythm. Respiratory: Airway is patent Respiratory effort is even, unlabored. GI: Abdomen is round distended. GI: Reports diarrhea, nausea. : No signs and/or symptoms were reported regarding the genitourinary system. Derm: No signs and/or symptoms reported regarding the dermatologic system. Musculoskeletal: No signs and/or symptoms reported regarding the musculoskeletal system. [employer]: 12:14 LMP N/A - Hysterectomy ld1 Historical: - Allergies: 12:14 Iodine; ld1 - Home Meds: 12:14 Albuterol Inhl [Active]; losartan Oral [Active]; metformin 500 mg Oral tab 1 tab 2 ld1 times per day [Active]; - PMHx: 12:14 Asthma; Hypertension; Diabetes - NIDDM; ld1 - PSHx: 12:14 Total abdominal hysterectomy; ld1 - Immunization history:: Adult Immunizations up to date, Client reports receiving the 2nd dose of the Covid vaccine. - Social history:: Smoking status: Patient denies any tobacco usage or history of. Patient/guardian denies using alcohol. Screenin:15 [facility] ED Fall Risk Assessment (Adult) History of falling in the last 3 months, ld1 including since admission No falls in past 3 months (0 pts). Abuse screen: Denies threats or abuse. Denies injuries from another. Nutritional screening: No deficits noted. Tuberculosis screening: No symptoms or risk factors identified. Assessment: 12:15 Reassessment: See triage assessment. ld1 12:53 General: Appears in no apparent distress. comfortable, Behavior is calm, cooperative, ld1 appropriate for age. Neuro: Level of Consciousness is awake, alert, obeys commands, Oriented to person, place, time, situation. Respiratory: Airway is patent Respiratory effort is even, unlabored. GI: Abdomen is round. 16:28 Reassessment: Patient appears in no apparent distress at this time. Patient and/or ld1 family updated on plan of care and expected duration. Pain level reassessed. Patient is alert, oriented x 3, equal unlabored respirations, skin warm/dry/pink. 17:18 Reassessment: Patient appears in no apparent distress at this time. Patient and/or ss family updated on plan of care and expected duration. Pain level reassessed. Patient is alert, oriented x 3, equal unlabored respirations, skin warm/dry/pink. Vital Signs: 12:12 BP 172 / 60; Pulse 89; Resp 18; Temp 97.6(O); Pulse Ox 100% on R/A; Pain 0/10; ld1 12:53 BP 128 / 79; Pulse 76; Resp 16; Pulse Ox 99% on R/A; ld1 15:18 BP 135 / 78; Pulse 79; Resp 18; Pulse Ox 99% on R/A; ld1 16:28 BP 106 / 52; Pulse 68; Resp 20; Pulse Ox 98% on R/A; ld1 17:18 BP 108 / 74; Pulse 70; Resp 18; Pulse Ox 100% on R/A; ss ED Course: 12:10 Patient arrived in ED. sp 12:11 Anderson Guerra PA is PHCP. jmm 12:11 Brittany Sepulveda MD is Attending Physician. jmm 12:12 Letitia Pineda RN is Primary Nurse. ld1 12:14 Triage completed. ld1 12:14 Arm band placed on right wrist. ld1 12:15 Patient has correct armband on for positive identification. Placed in gown. Bed in low ld1 position. Call light in reach. Side rails up X2. cafeteria monitor on. Pulse ox on. NIBP on. Door closed. Noise minimized. Warm blanket given. 12:15 No provider procedures requiring assistance completed. ld1 13:00 Inserted saline lock: 20 gauge in left forearm, using aseptic technique. Blood ss collected. 13:01 XRAY Chest (1 view) In Process Unspecified. EDMS 13:39 CT Chest Abdomen Pelvis W/O Contrast In Process Unspecified. EDMS 14:13 Roni Wan MD is Hospitalizing Provider. jmm 15:47 SARS RAPID Sent. ld1 17:38 Patient admitted, IV remains in place. ld1 Administered Medications: 13:26 Not Given (not neededd): Pepcid (famotidine) 20 mg IVP once; dilute with 10 mL 0.9% [facility] NaCl; give over 2 minutes 13:27 Not Given (not givenn): SOLU-Medrol (methylPrednisoLONE) 125 mg IVP once [facility] 13:27 Not Given (no givenn): diphenhydrAMINE 25 mg IVP once [facility] Medication: 12:15 VIS not applicable for this client. ld1 Outcome: 14:13 Decision to Hospitalize by Provider. [facility] 17:38 Admitted to Med/surg accompanied by tech, via wheelchair, room 202, with chart, Report ld1 called to KENYA Verdugo 17:38 Condition: stable 17:38 Instructed on the need for admit. 17:38 Patient left the ED. ld1 Signatures: Dispatcher [employer] EDMS Mickail, Anderson, PA Brigette Wild Shelby, RN RN ss Letitia Pineda, RN RN ld1
--- NOTE | 2022-03-30 14:14 | EDPHYS ---
Physician Documentation [facility] Name: Sahra Dewey Age: 56 yrs Sex: Female : 1965 Arrival Date: 03/30/2022 Time: 12:10 Bed 25 Private MD: ED Physician Brittany Sepulveda HPI: 03/30 14:07 This 56 yrs old Black Female presents to ER via EMS with complaints of Chest pain. [facility] 14:07 The patient or guardian reports chest pain that is located primarily in the substernal [facility] area. Onset: gradually, 1 day(s) ago. The pain does not radiate. Associated signs and symptoms: Pertinent positives: Diarrhea, abdominal pain. The chest pain is described as aching. Duration: The patient or guardian reports a single episode, that is still ongoing. This is a 56-year-old female with history of asthma, diabetes mellitus, hypertension the presents emerged department with complaints of multiple episodes of diarrhea and chest pain beginning last night. Patient denies shortness of breath. Denies fever. Patient was concerned it may have been due to a bad pork chop she ate. . [employer]: 12:14 LMP N/A - Hysterectomy ld1 Historical: - Allergies: 12:14 Iodine; ld1 - Home Meds: 12:14 Albuterol Inhl [Active]; losartan Oral [Active]; metformin 500 mg Oral tab 1 tab 2 ld1 times per day [Active]; - PMHx: 12:14 Asthma; Hypertension; Diabetes - NIDDM; ld1 - PSHx: 12:14 Total abdominal hysterectomy; ld1 - Immunization history:: Adult Immunizations up to date, Client reports receiving the 2nd dose of the Covid vaccine. - Social history:: Smoking status: Patient denies any tobacco usage or history of. Patient/guardian denies using alcohol. ROS: 14:07 Constitutional: Negative for fever, chills, and weight loss, Respiratory: Negative for jmm shortness of breath, cough, wheezing, and pleuritic chest pain. 14:07 Cardiovascular: Positive for chest pain. 14:07 Abdomen/GI: Positive for diarrhea. 14:07 All other systems are negative. Exam: 14:07 Constitutional: This is a well developed, well nourished patient who is awake, alert, jmm and in no acute distress. Head/Face: atraumatic. Eyes: EOMI, no conjunctival erythema appreciated ENT: Moist Mucus Membranes Neck: Trachea midline, Supple Chest/axilla: Normal chest wall appearance and motion. Cardiovascular: Regular rate and rhythm. No edema appreciated Respiratory: Normal respirations, no respiratory distress appreciated 14:07 Back: Normal ROM Skin: General appearance color normal 14:07 Abdomen/GI: Inspection: obese Bowel sounds: normal, Palpation: soft, nontender, in all quadrants. 14:07 Musculoskeletal/extremity: ROM: intact in all extremities. 14:07 Skin: Appearance: Color: normal in color. 14:07 Neuro: Motor: is normal. Vital Signs: 12:12 BP 172 / 60; Pulse 89; Resp 18; Temp 97.6(O); Pulse Ox 100% on R/A; Pain 0/10; ld1 12:53 BP 128 / 79; Pulse 76; Resp 16; Pulse Ox 99% on R/A; ld1 15:18 BP 135 / 78; Pulse 79; Resp 18; Pulse Ox 99% on R/A; ld1 16:28 BP 106 / 52; Pulse 68; Resp 20; Pulse Ox 98% on R/A; ld1 17:18 BP 108 / 74; Pulse 70; Resp 18; Pulse Ox 100% on R/A; ss MDM: 12:11 Patient medically screened. [facility] 14:11 The patient was given aspirin in the Emergency Department. Data reviewed: vital signs, [facility] nurses notes. ED course: I discussed the patient with LIZ Bob whom accepted the patient to Dr. Graham service. . 03/30 12:11 Order name: Basic Metabolic Panel; Complete Time: 13:23 [facility] 03/30 12:11 Order name: CBC with Diff; Complete Time: 13:10 [facility] 03/30 12:11 Order name: LFT's; Complete Time: 13:23 [facility] 03/30 12:11 Order name: Magnesium; Complete Time: 13:23 [facility] 03/30 12:11 Order name: NT PRO-BNP; Complete Time: 13:23 [facility] 03/30 12:11 Order name: PT-INR; Complete Time: 13:09 [facility] 03/30 12:11 Order name: Troponin HS; Complete Time: 13:23 [facility] 03/30 15:16 Order name: SARS RAPID; Complete Time: 16:17 ld1 03/30 15:58 Order name: Hemoglobin A1c EDMS 03/30 15:58 Order name: Lipid Profile EDMS 03/30 16:06 Order name: Creatine Phosphokinase EDMS 03/30 16:06 Order name: Magnesium EDMS 03/30 16:06 Order name: Phosphorus EDMS 03/30 16:06 Order name: Protime (+INR) EDMS 03/30 12:11 Order name: XRAY Chest (1 view); Complete Time: 13:09 [facility] 03/30 12:11 Order name: EKG; Complete Time: 12:12 [facility] 03/30 13:29 Order name: CT Chest Abdomen Pelvis W/O Contrast; Complete Time: 13:59 [facility] 03/30 15:59 Order name: Echo with Doppler EDMS 03/30 16:06 Order name: T4 Free EDWI 03/30 16:06 Order name: Thyroid Stimulating Hormone EDMS 03/30 16:06 Order name: Urinalysis EDMS 03/30 16:06 Order name: Basic Metabolic Panel EDWI 03/30 16:06 Order name: Basic Metabolic Panel EDMS 03/30 16:06 Order name: CBC with Automated Diff EDMS 03/30 16:06 Order name: CBC with Automated Diff EDMS 03/30 12:11 Order name: Cardiac monitoring; Complete Time: 12:53 [facility] 03/30 12:11 Order name: EKG - Nurse/Tech; Complete Time: 12:53 [facility] 03/30 12:11 Order name: IV Saline Lock; Complete Time: 12:53 [facility] 03/30 12:11 Order name: Labs collected and sent; Complete Time: 12:53 [facility] 03/30 12:11 Order name: O2 Per Protocol; Complete Time: 12:53 [facility] 03/30 12:11 Order name: O2 Sat Monitoring; Complete Time: 12:53 [facility] 03/30 16:06 Order name: Renal EDMS Administered Medications: 13:26 Not Given (not neededd): Pepcid (famotidine) 20 mg IVP once; dilute with 10 mL 0.9% [facility] NaCl; give over 2 minutes 13:27 Not Given (not givenn): SOLU-Medrol (methylPrednisoLONE) 125 mg IVP once [facility] 13:27 Not Given (no givenn): diphenhydrAMINE 25 mg IVP once jmm Disposition Summary: 03/30/22 14:13 Hospitalization Ordered Hospitalization Status: Observation [facility] Provider: Roni Wan Location: Telemetry/MedSurg (observation) jmm Condition: Stable jmm Problem: new jmm Symptoms: are unchanged jmm Bed/Room Type: Standard [facility] Room Assignment: 202(03/30/22 17:04) dw Diagnosis - Chest pain, unspecified jmm - Acute Kidney Injury jm Forms: - Medication Reconciliation Form jmm - SBAR form m Addendum: 04/02/2022 22:41 STAFF ATTESTATION: The patient's history, exam findings, diagnostics and a summary of s d2 any interventions or procedures was reviewed in detail with the ED ИРИНА. I confirm the diagnosis as documented by the ИРИНА and I agree with the care plan articulated in the disposition section with regards to our discussion of the patient's case. Brittany Sepulveda MD. Signatures: Dispatcher [employer] EDWI Kylie Greer RN RN dw Mickail, Joel, PA PA [facility] Letitia Pineda RN RN ld1 Brittany Sepulveda MD MD sd2 Corrections: (The following items were deleted from the chart) 03/30 13:34 13:12 Chest For PE Angio+CT.RAD.BRZ ordered. EDWI EDWI 13:34 13:12 Abdomen Pelvis W Con+CT.RAD.BRZ ordered. EDWI EDWI 16:06 16:03 [facility] 14:13 [facility] 17:04 16:40 [facility]
[2022-03-30] MEDS ORDERED: ACETAMINOPHEN 325 MG TABLET PO PRN (15:55)
[2022-03-30] MEDS ORDERED: ASPIRIN 81 MG CHEWABLE TABLET PO ONE (15:55)
[2022-03-30] MEDS ORDERED: ONDANSETRON 4 MG/2 ML VIAL IV PRN (16:03)
--- NOTE | 2022-03-30 16:05 | P.HP ---
Certification for Inpatient Patient admitted to: Observation With expected LOS: <2 Midnights Patient will require the following post-hospital care: None Practitioner: I am a practitioner with admitting privileges, knowledge of patient current condition, hospital course, and medical plan of care. Services: Services provided to patient in accordance with Admission requirements found in Title 42 Section 412.3 of the Code of Federal Regulations <KamillejordanJamie iglesias Gian - Last Filed: 03/31/22 03:42> Patient History Date of Service: 03/30/22 Reason for admission: Chest pain History of Present Illness: Patient is a 56-year-old female with a past medical history significant for DM 2, Asthma, hypertension, obesity who presents with complaint of chest pain located in the left chest wall onset yesterday. Patient reported that she initially started having generalized abdominal pain 2 days ago after eating some pork chop. Patient also reported having diarrhea 2 days ago but indicated that she has not had any episodes of diarrhea today. Patient rated (abdominal and chest) pain as 8/10 in severity and described pain as aching in quality. Patient reported abdominal pain radiates to her left shoulder and back. Patient reported shortness of breath with exertion. Patient denies any other signs or symptoms. Symptoms are aggravated or relieved by nothing. Patient decided to present to the hospital for medical evaluation. - Past Medical/Surgical History -: HTN -: DM2 -: Asthma -: Obesity Past Surgical History: Reviewed- Non-Contributory - Family History Mother -: Cancer Father -: Stroke - Social History Smoking Status: Never smoker Alcohol use: No CD- Drugs: No Caffeine use: Yes Place of Residence: Home <Jamie Romero - Last Filed: 03/31/22 03:42> Date of Service: 03/31/22 <Roni Wan - Last Filed: 03/31/22 13:14> Allergies iodine Allergy (Verified 11/15/20 12:53) Hives Home Medications: Albuterol Sulfate [Proair Hfa] 1 puff IH PRN PRN 04/09/17 Fluticasone/Salmeterol [Advair 250-50 Diskus] 1 puff IH PRN PRN 04/09/17 RX: Fluticasone [Flonase 50MCG Nasal [place]*] 1 spray IH PRN PRN 04/09/17 RX: Losartan Potassium 100 mg PO DAILY 04/09/17 Hydrocodone Bit/Acetaminophen [Hydrocodon-Acetaminoph 7.5-325] 1 tab PO PRN PRN 03/30/22 RX: Hydralazine HCl 25 mg PO TID 03/30/22 Review of Systems General: Unremarkable Eyes: Unremarkable ENT: Unremarkable Respiratory: SOB with Excertion Cardiovascular: Chest Pain Gastrointestinal: Abdominal Pain, Diarrhea Genitourinary: Unremarkable Musculoskeletal: Shoulder Pain, Back Pain Integumentary: Unremarkable Neurological: Unremarkable Lymphatics: Unremarkable <Jamie Romero - Last Filed: 03/31/22 03:42> Physical Examination - Physical Exam General: Alert, In no apparent distress, Cooperative HEENT: Atraumatic, PERRLA, Mucous membr. moist/pink, EOMI, Sclerae nonicteric Neck: Supple, 2+ carotid pulse no bruit, No LAD, Without JVD or thyroid abnormality Respiratory: Diminished Cardiovascular: No edema, Regular rate/rhythm, Normal S1 S2, No murmurs Capillary refill: <2 Seconds Gastrointestinal: Normal bowel sounds, No guarding, Tenderness Musculoskeletal: No clubbing, No swelling, No contractures Integumentary: No rashes, No breakdown, No significant lesion, No erythema Neurological: Normal speech, Normal tone, Normal affect Lymphatics: No axilla or inguinal lymphadenopathy - Studies Laboratory Data (last 24 hrs) 03/30/22 12:51: PT 12.4, INR 1.13 03/30/22 12:51: WBC 5.10, Hgb 11.7 L, Hct 35.8 L, Plt Count 270 03/30/22 12:51: Sodium 141, Potassium 3.6, BUN 26 H, Creatinine 2.69 H, Glucose 150 H, Magnesium 2.1, Total Bilirubin 0.5, AST 11 L, ALT 22, Alkaline Phosphatase 108 <Jamie Romero - Last Filed: 03/31/22 03:42> - Studies Laboratory Data (last 24 hrs) 03/30/22 12:51: Sodium 141, Potassium 3.6, BUN 26 H, Creatinine 2.69 H, Glucose 150 H, Magnesium 2.1, Total Bilirubin 0.5, AST 11 L, ALT 22, Alkaline Phosphatase 108 <Roni Wan Last Filed: 03/31/22 13:14> Assessment and Plan - Plan --Chest pain. To rule out ACS. Cardiology consulted. We will trend serial troponin--so far negative. Echocardiogram pending to assess cardiac structures and functions. Telemetry to monitor for any significant arrhythmia. We will await further recommendation from general pediatrician. --MELITON. Baseline renal functions unknown. Nephrology consulted. We will continue to monitor renal functions. We will hold off on ARB's and avoid nephrotoxins. Nephrologys recommendations appreciated. --Mild persistent asthma with exacerbation. Continue home medications and neb treatment with albuterol. --DM2. BS monitoring with sliding scale insulin. --Class III obesity. Likely secondary to excess calories intake and sedentary lifestyle. Patient counseled on weight reduction, diet and exercise therapy. --Hypertension. Patient initially hypertensive on presentation to the ER. Blood pressure trending down. We will hold off on BP meds. We will continue to monitor blood pressure levels and treat accordingly. --Hyperlipidemia. Patient placed on statin. --Abdominal pain. Imaging unremarkable for any acute intra-abdominal abnormality. Will manage pain with current pain medication regimen. --Anemia of chronic disease. H&H stable. We will continue to monitor hemoglobin and transfuse if less than 7.0. --Diarrhea. Resolved. Continue supportive care --DVT prophylaxis with heparin subQ Discharge Plan: Home - Advance Directives Does patient have a Living Will: No Does patient have a Durable POA for Healthcare: No - Code Status/Comfort Care Code Status Assessed: Yes Physician Review: Patient Assessed, Agree with Above Assessment and Plan Critical Care: No <Jamie Romero - Last Filed: 03/31/22 03:42> Physician Review: Patient Assessed, Agree with Above Assessment and Plan <Roni Wan - Last Filed: 03/31/22 13:14>
[2022-03-30 16:09] LABS: SARS-CoV-2 Antigen Rapid Res Negative (Negative)
--- NOTE | 2022-03-30 16:23 | P.CNS ---
Date of Consult: 03/30/22 Reason for Consult: MELITON Requesting Physician: Roni Wan Chief Complaint: Chest Pain History of Present Illness: 56 yo BF HTN presented to the ER with 1-2 days of moderate, persistent substernal chest pain/ epigastric pain subsequent to the ingestion of a pork chop. She denies CKD and NSAIDs. She reports persistent edema and urinary frequency. +BM 14:07 This 56 yrs old Black Female presents to ER via EMS with complaints of Chest pain. jmm 14:07 The patient or guardian reports chest pain that is located primarily in the substernal [facility] area. Onset: gradually, 1 day(s) ago. The pain does not radiate. Associated signs and symptoms: Pertinent positives: Diarrhea, abdominal pain. The chest pain is described as aching. Duration: The patient or guardian reports a single episode, that is still ongoing. This is a 56-year-old female with history of asthma, diabetes mellitus, hypertension the presents emerged department with complaints of multiple episodes of diarrhea and chest pain beginning last night. Patient denies shortness of breath. Denies fever. Patient was concerned it may have been due to a bad pork chop she ate. Allergies iodine Allergy (Verified 11/15/20 12:53) Hives Home medications list reviewed: Yes Home Medications: Albuterol Sulfate [Albuterol Sulfate 0.083% Neb Soln] 1 puff IH DAILY 04/09/17 Albuterol Sulfate [Proair Hfa] 1 puff IH DAILY 04/09/17 Codeine/APAP [Tylenol #3*] 1 tab PO DAILY PRN 04/09/17 Fluticasone [Flonase 50MCG Nasal [place]*] 1 spray IH DAILY 04/09/17 Fluticasone/Salmeterol [Advair 250-50 Diskus] 1 puff IH DAILY 04/09/17 Losartan Potassium 50 mg PO DAILY 04/09/17 - Past Medical/Surgical History -: HTN - Social History Smoking Status: Unknown if ever smoked Review of Systems 10-point ROS is otherwise unremarkable General: Weakness Gastrointestinal: Abdominal Pain Physical Examination General: Oriented x3, Cooperative HEENT: Atraumatic Neck: Supple Respiratory: Clear to auscultation bilaterally Cardiovascular: Regular rate/rhythm, Edema Gastrointestinal: Non-distended, Tenderness Musculoskeletal: No clubbing, No contractures Integumentary: No rashes Neurological: Normal speech Laboratory Data (last 24 hrs) 03/30/22 12:51: PT 12.4, INR 1.13 03/30/22 12:51: WBC 5.10, Hgb 11.7 L, Hct 35.8 L, Plt Count 270 03/30/22 12:51: Sodium 141, Potassium 3.6, BUN 26 H, Creatinine 2.69 H, Glucose 150 H, Magnesium 2.1, Total Bilirubin 0.5, AST 11 L, ALT 22, Alkaline Phosphatase 108 Imagings Data: EXAM DESCRIPTION: [place] Single View03/30/2022 12:59 pm CLINICAL HISTORY: Chest pain COMPARISON: 2018 FINDINGS: The lungs are hazy. The heart is normal size IMPRESSION: Lungs are hazy. This could be secondary to overlying soft tissue or infiltrate. PA and lateral chest series recommended EXAM DESCRIPTION: CT - Chest Abd Pelvis Wo Con - 03/30/2022 1:37 pm CLINICAL HISTORY: Chest and abdominal pain COMPARISON: 2014 TECHNIQUE: Computed axial tomography of the chest, abdomen and pelvis was obtained. Oral contrast was given. IV contrast was not requested. All CT scans are performed using dose optimization technique as appropriate and may include automated exposure control or mA/KV adjustment according to patient size. FINDINGS: The evaluation of mediastinum, mahad, vessels and solid organs is limited secondary to the lack of IV contrast administration The lungs are clear No mediastinal or hilar lymphadenopathy is seen. A pleural effusion is not present. A pericardial effusion is not seen. The liver, spleen, pancreas, adrenals and kidneys appear grossly normal There is no evidence of diverticulitis. Normal appendix Cholelithiasis. The gallbladder wall thickening Postsurgical changes involve stomach IMPRESSION: Cholelithiasis without gallbladder wall thickening Conclusions/Impression: MELITON of unclear etiology Suspected CKD with unclear baseline -No NSAIDs -Change IVF 1/2NS -Request records from PCP -Consider HTN with CKD -Hold Losartan DM II -No sugar diet -A1C pending Hypoalbuminemia -Consider Nepro Anemia in chronic illness Microcytosis -Monitor H&H Thank you kindly for the consultation.
[2022-03-30] MEDS ORDERED: NA CHLORIDE 0.9% 1,000 ML IV SCH (17:00)
[2022-03-30 19:34] LABS: Protime INR 1.18
[2022-03-30 19:48] LABS: Magnesium 1.9 mg/dL (1.6-2.4); Phosphorus 3.8 mg/dL (2.5-4.9); Thyroid Stimulating Hormone 2.44 uIU/mL (0.358-3.740)
[2022-03-30] MEDS ORDERED: NACHLORIDE 0.45% 1,000 ML IV SCH (20:00)
[2022-03-30] MEDS: HEPARIN 5000 UNIT/ML 1 ML VIAL SQ SCH (21:47)
[2022-03-30 23:36] VITALS: BMI 70.7
[2022-03-31] MEDS ORDERED: D50W 25 GM/50 ML SYRINGE IV PRN (03:37)
[2022-03-31] MEDS ORDERED: GLUCAGON 1 MG/VIAL IM PRN (03:37)
[2022-03-31] MEDS ORDERED: D10W 125 ML IV PRN (03:40)
[2022-03-31 04:06] LABS: Absolute Lymphocytes (CBC) 1.7 K/uL (0.7-4.9); Hematocrit 34.1 % (36.0-45.0); Lymphocytes % 33.2 % (15.3-44.8); MCV 81.8 fL (80-100); MPV 7.9 fL (7.6-11.3); RBC Red Blood Cell Count 4.17 M/uL (3.86-4.86)
[2022-03-31 04:12] LABS: Albumin 2.7 g/dL (3.4-5.0); Bilirubin Total 0.6 mg/dL (0.2-1.0); Potassium 3.4 mmol/L (3.5-5.1); Protein, Total 7.1 g/dL (6.4-8.2); Troponin High Sensitivity 6.5 pg/mL (<58.9); Uric Acid 9.3 mg/dL (2.6-6.0)
[2022-03-31] MEDS: HYDROCODONE/APAP 5/325 MG TAB PO PRN (04:14)
[2022-03-31] MEDS ORDERED: MORPHINE 2 MG/ML SYR IV PRN (04:35)
[2022-03-31] MEDS: INSULIN -REGULAR HUMAN 50 UNIT/0.5 ML ML SQ SCH ×4 (07:30→21:00)
[2022-03-31 07:49] LABS: Specific Gravity 1.007 (1.005-1.030); Urine Bacteria <20 /HPF (<20); Urine Bilirubin NEGATIVE (Negative); Urine Blood 1+ (Negative); Urine Clarity Clear (Clear); Urine Color Light-Yellow (Yellow); Urine Glucose NEGATIVE (Negative); Urine Mucus Slight /HPF (None Seen); Urine Protein NEGATIVE (Negative); Urine RBC <5 /HPF (None Seen); Urine Urobilinogen Normal (Normal)
[2022-03-31] MEDS: DULERA 200/5 (MOMETASONE/FORMOTEROL) INHALER IH SCH ×2 (08:00→20:00)
[2022-03-31] MEDS ORDERED: POTASSIUM CL SA 10 MEQ TAB PO ONE (08:00)
[2022-03-31] MEDS: ASPIRIN 81 MG CHEWABLE TABLET PO SCH (08:15)
[2022-03-31] MEDS: HEPARIN 5000 UNIT/ML 1 ML VIAL SQ SCH ×2 (08:16→22:23)
--- NOTE | 2022-03-31 08:32 | EKG ---
Test Date: 2022-03-30 Test Time: 12:27:23 Electrical Prospecting Engineer: HAFSA MEASUREMENT RESULTS: Intervals: Rate: 76 DC: 148 QRSD: 92 QT: 414 QTc: 465 [place]: P: 64 DC: 148 QRS: 48 T: 61 INTERPRETIVE STATEMENTS: Normal sinus rhythm Normal ECG Compared to ECG 03/20/2019 11:14:04 No significant changes Electronically Signed On 03-31-22 08:31:13 FOUR ROLL CALENDER OPERATOR by Cl Hernandez
[2022-03-31] MEDS ORDERED: ALBUTEROL 2.5 MG/3 ML NEB SOL IH SCH (09:00)
[2022-03-31] MEDS ORDERED: FLUTICASONE 50MCG NASAL SPRAY NAS SCH (09:00)
[2022-03-31 11:03] LABS: C.diff Antigen/Toxin Ag neg : Tox neg (NEG : NEG)
--- NOTE | 2022-03-31 13:21 | P.PN ---
Subjective Date of Service: 03/31/22 Chief Complaint: Chest pain No acute events overnight. Her chest pain has completely resolved. She reports that she has not had any shortness of breath since yesterday. She denies any obvious changes in urinary output. Review of Systems 10-point ROS is otherwise unremarkable Physical Examination - Vital Signs Temperature: 97.4 F Blood Pressure: 131/76 Pulse: 75 Respirations: 16 Pulse Ox (%): 97 - Physical Exam General: Alert, In no apparent distress, Oriented x3 HEENT: Atraumatic, Mucous membr. moist/pink, EOMI, Sclerae nonicteric Neck: JVD not distended Respiratory: Clear to auscultation bilaterally, Normal air movement Cardiovascular: No edema, Regular rate/rhythm, Normal S1 S2, No gallops, No rubs, No murmurs Gastrointestinal: Normal bowel sounds, Soft and benign, Non-distended, No tenderness, No rebound, No guarding Musculoskeletal: No clubbing Integumentary: No rashes Neurological: Normal speech, Cranial nerves 3-12 intact, Normal affect - Studies Laboratory Data (last 24 hrs) 03/30/22 12:51: Sodium 141, Potassium 3.6, BUN 26 H, Creatinine 2.69 H, Glucose 150 H, Magnesium 2.1, Total Bilirubin 0.5, AST 11 L, ALT 22, Alkaline Phosphatase 108 Assessment And Plan - Plan # Chest Pain, atypical (resolved) # Cholelithiasis # Dyslipidemia - Evaluation thus far: - EKG: without reported STEMI criteria, trend - Serial troponin: 5.5 -> 6.5 -> 6.5 - Ordered transthoracic echocardiogram - Chest x-ray = "Lungs are hazy. This could be secondary to overlying soft tissue or infiltrate. PA and lateral chest series recommended" - CT chest/abdomen/pelvis = "Cholelithiasis without gallbladder wall thickening" - Management plan: - Consult Cardiology - recommendations appreciated - S/P aspirin 324 mg PO x 1 in ED - Continue aspirin + atorvastatin - If cardiac ischemia confirmed, plan to start beta-charu, WHITNEY- inhibitor/ARB as tolerated # Acute Kidney Injury - Consulted Nephrology and spoke with Dr. Parker - recommendations appreciated - Creatinine = 2.69 -> 2.18 - Urinalysis = 1+ blood - Monitor creatinine and urine output - If worsening, obtain renal ultrasound - Renally dose medications # Type II Diabetes Mellitus - Correction scale insulin # Asthma - No evidence of acute exacerbation - Continue home inhalers # Morbid Obesity - BMI 70.7 kg/m2 - Lifestyle modifications
--- NOTE | 2022-03-31 20:55 | CON ---
Date of Consultation: 03/31/2022 Reason For Consultation: Chest pain. History Of Present Illness: A 56-year-old female, morbidly obese, with history of diabetes, hyperten halley, and asthma, presented with chest pain retrosternal, radiates to the left upper extremity, not r elated to exertion. No exertional chest pain. She also reported to have diarrhea, nausea, and epiga stric discomfort as well. No known history of cardiac disease, and she at the present time, does not have any active chest pain. Past Medical History: As outlined above in the HPI. Medications: Refer reconciliation sheet for detailed list. Allergies: IODINE. Family History: No premature coronary artery disease or cancer. Social History: She does not smoke or drink. Does not use any drugs. Review of Systems: All systems reviewed and they are negative except what mentioned in HPI. Physical Examination: Vital Signs: Temperature is 97.4, pulse 75, breathing at 16, blood pressure 131/76, saturating 97% o n room air. General: Pleasant, middle-aged female, morbidly obese. No apparent distress. Head and Neck: Pupils are equal, reactive to light. Intact eye movements. No JVD. No cervical lym phadenopathy. Neck: Supple. Thyroid is not enlarged. Lungs: Clear to auscultation bilaterally. No rhonchi, rales, or crackles. No accessory muscle use. Heart: Regular rate and rhythm. No extra sounds. Abdomen: Soft, nontender. Bowel sounds positive. No organomegaly. No masses or hernia. No rigidi ty or rebound. Extremities: No clubbing, cyanosis. Intact pulses. Skin: No rashes. Neurologic: Alert, awake, oriented x3. No acute focal deficits appreciated. Lymph Nodes: No cervical or axillary lymphadenopathy. Investigations: Troponin 3 sets are negative. BUN is 22, creatinine 2.18. Assessment And Recommendations: 1.Chest pain, atypical with negative cardiac enzymes. No further inpatient cardiac workup is needed . Her EF on echo is normal. No wall motion abnormalities. Plan for outpatient nuclear stress test. 2.Renal failure. This is likely chronic as the patient has diabetes that is not very well controlle d. 3.Hypertension. Blood pressure is controlled. SR/MODL Voice ID: [id number] Report ID: [id number]
[2022-03-31] MEDS ORDERED: ATORVASTATIN 40 MG TAB PO SCH (21:00)
--- NOTE | 2022-03-31 22:26 | P.PN ---
Date of Service: 03/31/22 Vital Signs Temp Pulse Resp BP Pulse Ox 97.6 F 80 18 121/71 97 03/31/22 20:00 03/31/22 20:00 03/31/22 20:00 03/31/22 20:00 03/31/22 20:00 Medications Acetaminophen (Acetaminophen 325 Mg Tablet) 650 mg PO Q6H PRN PRN Reason: TEMP > 100' F Hydrocodone Bitart/Acetaminophen (Hydrocodone/Apap 5/325 Mg Tab) 1 tab PO Q6H PRN PRN Reason: Pain scale 5-7 (Moderate) Last Admin: 03/31/22 04:14 Dose: 1 tab Albuterol Sulfate (Albuterol 2.5 Mg/3 Ml Neb Negin) 2.5 mg IH DAILYRESP [facility] Aspirin (Aspirin 81 Mg Chewable Tablet) 81 mg PO DAILY [facility] Last Admin: 03/31/22 08:15 Dose: 81 mg Atorvastatin Calcium (Atorvastatin 40 Mg Tab) 40 mg PO BEDTIME [facility] Fluticasone Propionate (Fluticasone 50mcg Nasal [place]) 1 sprays OPAL DAILY [facility] Last Admin: 03/31/22 09:00 Dose: Not Given Glucagon (Glucagon 1 Mg/Vial) 1 mg IM 1X PRN PRN Reason: HYPOGLYCEMIA Heparin Sodium (Porcine) (Heparin 5000 Unit/Ml 1 Ml Vial) 5,000 unit SQ Q12HR [facility] Last Admin: 03/31/22 08:16 Dose: 5,000 unit Dextrose (Dextrose 10% Water Iv Soln.) 125 mls @ 0 mls/hr IV PRN PRN; Protocol PRN Reason: HYPOGLYCEMIA Insulin Human Regular (Insulin -Regular Human 50 Unit/0.5 Ml Ml) 0 unit SQ ACHS [facility]; Protocol Last Admin: 03/31/22 16:30 Dose: Not Given Morphine Sulfate (Morphine 2 Mg/Ml Syr) 2 mg IV Q6H PRN PRN Reason: Pain scale 5-7 (Moderate) Ondansetron HCl (Ondansetron 4 Mg/2 Ml Vial) 4 mg IV Q6HP PRN PRN Reason: NAUSEA / VOMITING Last Admin: 03/31/22 04:18 Dose: 4 mg Sodium Chloride (Flush Normal Saline 10 Ml) 10 ml IV BID [facility] Last Admin: 03/31/22 08:21 Dose: 10 ml Assessment/ Plan: Nephrology No dyspnea No chest pain No acute events overnight Vitals, medications, blood work and imaging reviewed in the chart. General: Oriented x3, Cooperative HEENT: Atraumatic Neck: Supple Respiratory: Clear to auscultation bilaterally Cardiovascular: Regular rate/rhythm, Edema Gastrointestinal: Non-distended, Tenderness Musculoskeletal: No clubbing, No contractures Integumentary: No rashes Neurological: Normal speech Laboratory Data (last 24 hrs) 03/30/22 12:51: PT 12.4, INR 1.13 03/30/22 12:51: WBC 5.10, Hgb 11.7 L, Hct 35.8 L, Plt Count 270 03/30/22 12:51: Sodium 141, Potassium 3.6, BUN 26 H, Creatinine 2.69 H, Glucose 150 H, Magnesium 2.1, Total Bilirubin 0.5, AST 11 L, ALT 22, Alkaline Phosphatase 108 Imagings Data: EXAM DESCRIPTION: [facility] Single View03/30/2022 12:59 pm CLINICAL HISTORY: Chest pain COMPARISON: 2018 FINDINGS: The lungs are hazy. The heart is normal size IMPRESSION: Lungs are hazy. This could be secondary to overlying soft tissue or infiltrate. PA and lateral chest series recommended EXAM DESCRIPTION: CT - Chest Abd Pelvis Wo Con - 03/30/2022 1:37 pm CLINICAL HISTORY: Chest and abdominal pain COMPARISON: 2014 TECHNIQUE: Computed axial tomography of the chest, abdomen and pelvis was obtained. Oral contrast was given. IV contrast was not requested. All CT scans are performed using dose optimization technique as appropriate and may include automated exposure control or mA/KV adjustment according to patient size. FINDINGS: The evaluation of mediastinum, mahad, vessels and solid organs is limited secondary to the lack of IV contrast administration The lungs are clear No mediastinal or hilar lymphadenopathy is seen. A pleural effusion is not present. A pericardial effusion is not seen. The liver, spleen, pancreas, adrenals and kidneys appear grossly normal There is no evidence of diverticulitis. Normal appendix Cholelithiasis. The gallbladder wall thickening Postsurgical changes involve stomach IMPRESSION: Cholelithiasis without gallbladder wall thickening Conclusions/Impression: MELITON of unclear etiology Suspected CKD with unclear baseline -No NSAIDs -Change IVF 1/2NS -Request records from PCP -Consider Hypokalemia -Replete potassium HTN with CKD -Hold Losartan DM II A1C 8.3 -No sugar diet Hypoalbuminemia -Consider Nepro Anemia in chronic illness Microcytosis -Monitor H&H -Check iron status Case reviewed with Dr. Wan
[2022-04-01] MEDS: HYDROCODONE/APAP 5/325 MG TAB PO PRN (06:12)
--- NOTE | 2022-04-01 06:44 | ECHO ---
HEIGHT: 5 ft 5 in WEIGHT: 425 lb 0 oz DATE OF STUDY: 03/31/[address]: Jamie Romero 2-DIMENSIONAL: YES M.MODE: YES DOPPLER: YES COLOR FLOW: YES TDS: PORTABLE: DEFINITY: BUBBLE STUDY: DIAGNOSIS: CHEST PAIN CARDIAC HISTORY: CATHERIZATION: SURGERY: PROSTHETIC VALVE: PACEMAKER: MEASUREMENTS (cm) DIASTOLIC (NORMALS) SYSTOLIC (NORMALS) IVSd 1.4 (0.6-1.2) LA Diam 3.8 (1.9-4.0) LVEF 68% LVIDd 3.4 (3.5-5.7) LVIDs 2.1 (2.0-3.5) %FS 37% LVPWd 1.5 (0.6-1.2) Ao Diam (2.0-3.7) 2 DIMENSIONAL ASSESSMENT: RIGHT ATRIUM: NORMAL LEFT ATRIUM: NORMAL RIGHT VENTRICLE: NORMAL LEFT VENTRICLE: MILD LEFT VENTRICULAR HYPERTROPHY TRICUSPID VALVE: MILD TRICUSPID REGURGITATION MITRAL VALVE: MILD MITRAL REGURGITATION PULMONIC VALVE: NORMAL AORTIC VALVE: NORMAL PERICARDIAL EFFUSION: NONE AORTIC ROOT: NORMAL LEFT VENTRICULAR WALL MOTION: NORMAL DOPPLER/COLOR FLOW: SEE BELOW COMMENTS: 1. NORMAL LEFT VENTRICULAR EJECTION FRACTION 60-65% 2. NORMAL WALL MOTION 3. MILD TO MODERATE CONCENTRIC LEFT VENTRICULAR HYPERTROPHY 4. MILD TRICUSPID REGURGITATION 5. MILD MITRAL REGURGITATION 6. DIASTOLIC DYSFUNCTION (MODERATE) TECHNOLOGIST: JASON COOL
[2022-04-01 07:13] LABS: Folic Acid, (Folate) 11.8 ng/mL (3.1-17.5); Potassium 3.5 mmol/L (3.5-5.1); Uric Acid 9.5 mg/dL (2.6-6.0)
--- NOTE | 2022-04-01 07:55 | P.DS ---
Admission Date: 03/30/22 Discharge Date: 04/01/22 Disposition: ROUTINE DISCHARGE Discharge Condition: GOOD Reason for Admission: Chest pain Consultations: 1. Cardiology 2. Nephrology Hospital Course: DIAGNOSES: # Chest Pain, atypical (resolved) # Acute Kidney Injury (improved) # Type II Diabetes Mellitus # Moderate Diastolic Dysfunction # Cholelithiasis # Dyslipidemia # Asthma # Morbid Obesity - BMI 70.7 kg/m2 HOSPITAL COURSE: Ms. Sahra Dewey is a pleasant 56 year old female with a past medical history significant for type 2 diabetes mellitus, morbid obesity, asthma, and dyslipidemia who was admitted to the [facility] on 03/30/2022 for chest pain. She was admitted to Medicine service. Her EKG was without reported STEMI cr iteria. Her troponin trend was 5.5, 6.5, 6.5, respectively. A transthoracic echocardiogram revealed, "1. normal left ventricular ejection fraction 60-65% 2. normal wall motion 3. mild to moderate concentric left ventricular hypertrophy 4. mild tricuspid regurgitation 5. mild mitral regurgitation 6. diastolic dysfunction (moderate)." Her chest x-ray revealed, "lungs are hazy. This could be secondary to overlying soft tissue or infiltrate. PA and lateral chest series recommended." Her CT chest/abdomen/pelvis revealed, "cholelithiasis without gallbladder wall thickening," and specifically that "the lungs are clear." Cardiology was consulted and she was evaluated by Dr. Farias. He has cleared her for discharge home with an outpatient stress test. In regards to her renal function, her creatinine was elevated to 2.69 on presentation. She denied any prior history of renal disease. Nephrology was consulted and she was evaluated by Dr. Parker. Given that her creatinine has continued to improve daily, Dr. Parker has cleared her for discharge with an outpatient follow-up appointment. On 04/01/2022, she was seen on morning rounds and deemed medically stable for discharge. She was discharged with instructions to schedule follow-up appointments with her PCP (Dr. Pickering), with Cardiology (Dr. Farias), and with Nephrology (Dr. Parker). She was provided a prescription for atorvastatin. She was given the opportunity to ask questions and reported no further questions. Furthermore, all questions were answered to the best of my ability. A copy of this discharge summary will be sent to the above providers to facilitate continuity of care. Today, I personally spent 25 minutes on her case, of which greater than 50% of the time was spent in patient education, counseling, and coordination of care as described above. - Physical Exam General: Alert, In no apparent distress, Oriented x3 HEENT: Atraumatic, Mucous membr. moist/pink, Sclerae nonicteric Neck: JVD not distended Respiratory: Clear to auscultation bilaterally, Normal air movement Cardiovascular: No edema, Regular rate/rhythm, Normal S1 S2, No gallops, No rubs, No murmurs Gastrointestinal: Normal bowel sounds, Soft and benign, Non-distended Musculoskeletal: No clubbing Integumentary: No rashes Neurological: Normal speech, Normal affect Vital Signs/Physical Exam: Temp Pulse Resp BP Pulse Ox 97.6 F 74 17 124/74 94 04/01/22 04:00 04/01/22 06:10 04/01/22 07:12 04/01/22 06:10 04/01/22 07:12 Laboratory Data at Discharge: WBC 5.20 K/uL (4.3-10.9) 03/31/22 03:16 Hgb 11.3 g/dL (12.0-15.0) L 03/31/22 03:16 Hct 34.1 % (36.0-45.0) L 03/31/22 03:16 Plt Count 252 K/uL (152-406) 03/31/22 03:16 PT 13.0 SECONDS (9.5-12.5) H 03/30/22 19:03 INR 1.18 03/30/22 19:03 Sodium 138 mmol/L (136-145) 04/01/22 06:01 Potassium 3.5 mmol/L (3.5-5.1) 04/01/22 06:01 BUN 19 mg/dL (7-18) H 04/01/22 06:01 Creatinine 1.77 mg/dL (0.55-1.02) H 04/01/22 06:01 Glucose 132 mg/dL (74-106) H 04/01/22 06:01 Uric Acid 9.5 mg/dL (2.6-6.0) H 04/01/22 06:01 Phosphorus 3.8 mg/dL (2.5-4.9) 03/30/22 19:03 Magnesium 1.9 mg/dL (1.6-2.4) 03/30/22 19:03 Total Bilirubin 0.6 mg/dL (0.2-1.0) 03/31/22 03:16 AST 11 U/L (15-37) L 03/31/22 03:16 ALT 19 U/L (13-56) 03/31/22 03:16 Alkaline Phosphatase 103 U/L (45-117) 03/31/22 03:16 Triglycerides 106 mg/dL (<150) 03/30/22 19:03 Cholesterol 199 mg/dL (<200) 03/30/22 19:03 HDL Cholesterol 39 mg/dL (40-60) L 03/30/22 19:03 Cholesterol/HDL Ratio 5.10 03/30/22 19:03 Lipase Cancelled 03/31/22 Unknown Home Medications: RX: Albuterol Sulfate [Proair Hfa] 1 puff IH PRN PRN 04/09/17 RX: Fluticasone [Flonase 50MCG Nasal [place]*] 1 spray IH PRN PRN 04/09/17 RX: Fluticasone/Salmeterol [Advair 250-50 Diskus] 1 puff IH PRN PRN 04/09/17 RX: Losartan Potassium 100 mg PO DAILY 04/09/17 RX: Hydralazine HCl 25 mg PO TID 03/30/22 RX: Hydrocodone Bit/Acetaminophen [Hydrocodon-Acetaminoph 7.5-325] 1 tab PO PRN PRN 03/30/22 RX: Aspirin Chewable [Aspirin Chewable*] 81 mg PO DAILY tab.chew 04/01/22 RX: Atorvastatin Calcium [Lipitor] 40 mg PO BEDTIME #30 tab 04/01/22 New Medications: RX: Atorvastatin Calcium [Lipitor] 40 mg PO BEDTIME #30 tab Physician Discharge Instructions: 1. Please call and schedule a follow-up appointment with your PCP (Dr. Pickering) in 3-5 days 2. Please call and schedule a follow-up appointment with Nephrology (Dr. Parker) in 5-7 days 3. Please call and schedule a follow-up appointment with Cardiology (Dr. Farias) in 5-7 days - He will schedule you for an outpatient cardiac stress test Diet: Renal Activity: Ad carrie Followup: Feliciano Parker DO [ACTIVE - CAN ADMIT] - 1 Week (Please call to schedule an appointment. ) Benjamín Pickering MD [Primary Care Provider] - 1 Week (Please call to schedule an appointment. ) Brain Farias MD [ACTIVE - CAN ADMIT] - 1 Week (Please call to scheule an appointment. ) Time spent managing pt's care (in minutes): 25
[2022-04-01] MEDS ORDERED: ALBUTEROL 2.5 MG/3 ML NEB SOL IH SCH (08:00)
[2022-04-01] MEDS: HEPARIN 5000 UNIT/ML 1 ML VIAL SQ SCH (08:15)
[2022-04-01] MEDS: ASPIRIN 81 MG CHEWABLE TABLET PO SCH (08:15)
[2022-04-01] MEDS ORDERED: POTASSIUM 25 MEQ EFFERV TAB PO ONE (09:00)
[2022-04-01 09:34] VITALS: O2SAT 97
[2022-04-01 09:39] VITALS: BP 124/62; TEMP 96.9
--- NOTE | 2022-04-01 16:07 | EKG ---
Test Date: 2022-03-30 Test Time: 12:28:02 Auto Mechanics Instructor: HAFSA MEASUREMENT RESULTS: Intervals: Rate: 69 [place]: 148 QRSD: 98 QT: 422 QTc: 452 [place]: P: 69 [place]: 148 QRS: 43 T: 40 INTERPRETIVE STATEMENTS: Normal sinus rhythm Normal ECG Compared to ECG 03/30/2022 12:27:23 No significant changes Electronically Signed On 04-01-22 16:05:19 FREEZER PERSON by Brain Farias
--- NOTE | 2022-04-01 16:07 | EKG ---
Test Date: 2022-03-30 Test Time: 12:41:05 Cruise Consultant: HAFSA MEASUREMENT RESULTS: Intervals: Rate: 73 [place]: 138 QRSD: 80 QT: 392 QTc: 431 [place]: P: 42 [place]: 138 QRS: -25 T: -6 INTERPRETIVE STATEMENTS: Normal sinus rhythm Voltage criteria for left ventricular hypertrophy Inferior infarct, age undetermined Abnormal ECG Compared to ECG 03/30/2022 12:28:02 Left ventricular hypertrophy now present Myocardial infarct finding now present Electronically Signed On 04-01-22 16:04:54 MANAGER FINANCE by Brain Farias
[2022-04-04 06:35] LABS: Alpha-1-Globulins 0.4 g/dL (0.2-0.3); Gamma Globulins 1.3 g/dL (0.8-1.7); INTERPRETATION REPORT
[2022-04-04 10:50] LABS: Immunoglobulin A 218 mg/dL (47-310); Immunoglobulin G 1364 mg/dL (600-1640); Immunoglobulin M 109 mg/dL (50-300)
== END 2022-04-01 09:58 | disposition home or self-care (01) ==
LOC: ER 11:56 → ERHOLD 15:53 → 2ND 17:23
PROVIDERS: ADMIT Internal Medicine; ATTEND Internal Medicine
DX: R07.9 Chest pain, unspecified (principal); N17.9 Acute kidney failure, unspecified; E11.9 Type 2 diabetes mellitus without complications; J45.909 Unspecified asthma, uncomplicated; I10 Essential (primary) hypertension; E66.01 Morbid (severe) obesity due to excess calories; Z68.45 Body mass index [BMI] 70 or greater, adult; E78.5 Hyperlipidemia, unspecified; R10.9 Unspecified abdominal pain; Z91.09 Other allergy status, other than to drugs and biological substances; E88.09 Other disorders of plasma-protein metabolism, not elsewhere classified; D63.1 Anemia in chronic kidney disease; K80.20 Calculus of gallbladder without cholecystitis without obstruction; E87.6 Hypokalemia; Z20.822 Contact with and (suspected) exposure to COVID-19
CPT/HCPCS: 93005 ×3; 93306; 85025 ×2; 81001; 80048 ×2; 36415 ×3; 83735 ×2; 82550; 84100; 85610 ×2; 80061; 82947 ×3; 80076; 84550 ×2; 84443; 87324; 83036; 84484 ×3; 84439; 82746; 82607; 83690; 83540; 80053; 86038; 83880; 86160 ×2; 82784 ×3; 84466; 84165; 71250; 74176; 71045; 94640 ×2; 99285; 87811; J1200; J1644 ×3; J7613 ×2; J2930; J2405; G0378; J3535

== ENCOUNTER → 2023-05-14 | Emergency (ER) | payer OTHER ==
--- OUTSIDE RECORDS SUMMARY | 2023-05-14 18:51 | XMS REPORT | Continuity of Care Document ---
Author Name Unknown Address [address] [facility] [address] [place] [address] [facility] thconnect Address [address] [facility] [address] [place] [address] Care Team Providers Care Email Production Specialist Name Role Phone LUCIE EARL Primary Care Physician Unavaila PEE Rouse Attending Clinician Unavail able CANDELARIO ELI Attending Clinician Unavaila andrews GC_GCBZW_Kadiyala_S Attending Clinician Unavaila andrews [place] Attending Clinician Unavailable PAM SHAY Attending Clinician Unavailable DEMETRIO Attending Clinician Unavailable EMORY ASCENCIO Attending Clinician Unavailable Emory Garner Attending Clinician [phone] NOE KENNEY Attending Clinician Unavailable Lee Atkinson MD Attending Clinician + [phone] Doctor Unassigned, [place] Attending Clinician EDILMA Prieto Attending Clinician Unavailable KWABENA ROBERTS Attending Clinician Unavaila KWABENA Perkins Attending Clinician Unavaila Lucie Haley Attending Clinician + [phone] Manuela Doyle Attending Clinician [phone] MANUELA HITCHCOCK Attending Clinician Unavailable LARON YAP Attending Clinician Unavailable MELVIN POLLOCK Attending Clinician Unavailab sukh GC_GCBZW_Kadiyala_S Admitting Clinician Unavaila andrews [place] Admitting Clinician Unavailable DEMETRIO Admitting Clinician Unavailable EMORY ASCENCIO Admitting Clinician Unavailable LARON YAP Admitting Clinician Unavailable Payers Payer Name Policy Type Policy Number Effective Date Expirati on Date Source [facility] (MEDICAID HMO) [id number] 2022 00:00:00 [facility] [id number] 00:00:00 Problems Condition Name Condition Details Condition Category Status Onset Date Resolution Date Last Treatment Date Treating Clinician Comments Source Cholelithi asis without obstructio n Cholelithi asis without Obstructio n Problem Active 05-20 00:00: 00 [facility] Diabetes mellitus Diabetes Mellitus Problem Active 04-16 00:00: 00 [facility] Hypertensi ve disorder Hypertensi ve Disorder Problem Active 04-16 00:00: 00 [facility] Asthma Asthma Problem Active 04-16 00:00: 00 [facility] Morbid obesity Morbid obesity Disease Active 10-12 00:00: 00 [facility] Type 2 diabetes mellitus without complicati on, without long-term current use of insulin Type 2 diabetes mellitus without complicati on, without long-term current use of insulin Disease Active 10-12 00:00: 00 [facility] Bilateral lower extremity edema Bilateral lower extremity edema Disease Active 10-12 00:00: 00 [facility] Snoring Snoring Disease Active 10-12 00:00: 00 [facility] GORGE (obstructi ve sleep apnea) GORGE (obstructi ve sleep apnea) Disease Active [facility] Allergies, Adverse Reactions, Alerts Allergy Name Allergy Type Status Severity Reaction(s) Onset Date Inactive Date Treating Clinician Comments Source IODINE DRUG INGREDI Active Unknown-Cmnt 12-05 00:00: 00 [facility] Iodine Propensi ty to adverse reaction s Active Unknown - See comments 12-05 00:00: 00 [facility] Social History Social Habit Start Date Stop Date Quantity Comments Source Alcohol intake 2021-08-28 00:00:00 2021-08-28 00:00:00 Ex-drinker (finding) [facility] Exposure to SARS-CoV-2 (event) 2021-08-17 00:00:00 2021-08-27 23:24:00 Not sure [facility] Tobacco use and exposure 2018-10-06 00:00:00 2018-10-06 00:00:00 Never used [facility] Sex Assigned At 1965 00:00:00 1965 00:00:00 [facility] Smoking Status Start Date Stop Date Source Never Smoker [facility] Medications Ordered Medication Name Filled Medication Name Start Date Stop Date Current Medication? Ordering Clinician Indication Dosage Frequency Signature (SIG) Comments Components Source predniSONE (DELTASONE) tablet 40 mg 08-28 08:45: 00 08-28 07:46 :00 No 40mg 40 mg, Oral, ONCE, 1 dose, On Wed08/28/21 at 0345, PETAR [facility] predniSONE 20 mg tablet 08-28 00:00: 00 09-02 04:59 :00 No [id number] 40mg Take 2 tablets by mouth every morning for 4 days. [facility] KCL 20 mEq tablet 04-18 00:00: 00 Yes 20meq Take 1 tablet by mouth daily. [facility] traMADol 50 mg tablet 04-12 00:00: 00 Yes [id number] 50mg Take 1 tablet by mouth every 6 (six) hours as needed for Pain (scale 4-6). [facility] ibuprofen 600 mg tablet 04-12 00:00: 00 Yes [id number] 600mg Take 1 tablet by mouth every 8 (eight) hours as needed for Pain (scale 4-6). [facility] metFORMIN 500 mg tablet 03-30 00:00: 00 Yes [id number] 500mg Take 1 tablet by mouth 2 (two) times daily with meals. FOLLOW-UP FOR FASTING LABS/REFIL LS [facility] fluticasone propion/balbir meterol (ADVAIR DISKUS INHALE) 2018-03 14:37: 44 Yes Inhale. [facility] albuterol 90 mcg/actuati on inhaler 2018-03 14:37: 44 Yes 2{puff} Inhale 2 Puffs every 6 (six) hours as needed for Wheezing or Shortness of Breath. [facility] LORATADINE 10 mg tablet 2018-03 00:00: 00 Yes [id number] TAKE 1 TABLET BY MOUTH EVERY DAY [facility] predniSONE 50 mg tablet 12-26 00:00: 00 08-28 00:00 :00 No 50mg Take 1 tablet by mouth SEE-INSTRU CTIONS. [facility] furosemide 40 mg tablet 12-16 00:00: 00 Yes 40mg Take 1 tablet by mouth daily. [facility] losartan 50 mg tablet 12-07 00:00: 00 Yes 50mg Take 50 mg by mouth daily. [facility] Lancing Device with Lancets (ONETOUCH DELICA PLUS LANC DEV) Kit 10-21 00:00: 00 Yes [id number] Use as directed, once a day to monitor blood glucose for ICD code E11.9 [facility] lancets (ONETOUCH DELICA PLUS LANCET) 30 gauge Misc 10-21 00:00: 00 Yes [id number] Use as directed, once a day to monitor blood glucose for ICD code E11.9 [facility] blood sugar diagnostic (ONETOUCH ULTRA BLUE TEST STRIP) strip 10-21 00:00: 00 Yes [id number] Use as directed, once a day to monitor blood glucose for ICD code E11.9 [facility] Blood-Gluco se Meter (ONETOUCH ULTRA2 METER) Kit 10-21 00:00: 00 Yes [id number] Use as directed, once a day to monitor blood glucose for ICD code E11.9 [facility] fluticasone propionate 50 mcg/actuati on nasal spray 10-06 00:00: 00 Yes [id number] 2{spray } Use 2 Sprays in each nostril daily. [facility] ergocalcife rol (vitamin D2) 1,250 mcg (50,000 unit) capsule TAKE 1 CAPSULE EVERY WEEK BY ORAL ROUTE FOR 90 DAYS. ergocalcife rol (vitamin D2) 1,250 mcg (50,000 unit) capsule TAKE 1 CAPSULE EVERY WEEK BY ORAL ROUTE FOR 90 DAYS. No ergocalcif kaylen (vitamin D2) 1,250 mcg (50,000 unit) capsule TAKE 1 CAPSULE EVERY WEEK BY ORAL ROUTE FOR 90 DAYS. [facility] glipizide 5 mg tablet TAKE 1 TABLET TWICE A DAY BY ORAL ROUTE DIRECTED FOR 90 DAYS. glipizide 5 mg tablet TAKE 1 TABLET TWICE A DAY BY ORAL ROUTE DIRECTED FOR 90 DAYS. No glipizide 5 mg tablet TAKE 1 TABLET TWICE A DAY BY ORAL ROUTE DIRECTED FOR 90 DAYS. [facility] hydrocodone 10 mg-acetamin ophen 325 mg tablet TAKE 1 TABLET EVERY 6 HOURS BY ORAL ROUTE NEEDED FOR 30 DAYS. hydrocodone 10 mg-acetamin ophen 325 mg tablet TAKE 1 TABLET EVERY 6 HOURS BY ORAL ROUTE NEEDED FOR 30 DAYS. No hydrocodon e 10 mg-acetami nophen 325 mg tablet TAKE 1 TABLET EVERY 6 HOURS BY ORAL ROUTE NEEDED FOR 30 DAYS. [facility] losartan 100 mg tablet TAKE ONE (1) TABLET EVERY DAY BY ORAL ROUTE. losartan 100 mg tablet TAKE ONE (1) TABLET EVERY DAY BY ORAL ROUTE. No losartan 100 mg tablet TAKE ONE (1) TABLET EVERY DAY BY ORAL ROUTE. [facility] rosuvastati n 20 mg tablet TAKE ONE (1) TABLET EVERY DAY BY ORAL ROUTE FOR 90 DAYS. rosuvastati n 20 mg tablet TAKE ONE (1) TABLET EVERY DAY BY ORAL ROUTE FOR 90 DAYS. No rosuvastat in 20 mg tablet TAKE ONE (1) TABLET EVERY DAY BY ORAL ROUTE FOR 90 DAYS. [facility] ergocalcife rol (vitamin D2) 1,250 mcg (50,000 unit) capsule TAKE 1 CAPSULE EVERY WEEK BY ORAL ROUTE FOR 90 DAYS. ergocalcife rol (vitamin D2) 1,250 mcg (50,000 unit) capsule TAKE 1 CAPSULE EVERY WEEK BY ORAL ROUTE FOR 90 DAYS. No ergocalcif kaylen (vitamin D2) 1,250 mcg (50,000 unit) capsule TAKE 1 CAPSULE EVERY WEEK BY ORAL ROUTE FOR 90 DAYS. [facility] glipizide 5 mg tablet TAKE 1 TABLET TWICE A DAY BY ORAL ROUTE DIRECTED FOR 90 DAYS. glipizide 5 mg tablet TAKE 1 TABLET TWICE A DAY BY ORAL ROUTE DIRECTED FOR 90 DAYS. No glipizide 5 mg tablet TAKE 1 TABLET TWICE A DAY BY ORAL ROUTE DIRECTED FOR 90 DAYS. [facility] hydrocodone 10 mg-acetamin ophen 325 mg tablet TAKE 1 TABLET EVERY 6 HOURS BY ORAL ROUTE NEEDED FOR 30 DAYS. hydrocodone 10 mg-acetamin ophen 325 mg tablet TAKE 1 TABLET EVERY 6 HOURS BY ORAL ROUTE NEEDED FOR 30 DAYS. No hydrocodon e 10 mg-acetami nophen 325 mg tablet TAKE 1 TABLET EVERY 6 HOURS BY ORAL ROUTE NEEDED FOR 30 DAYS. [facility] losartan 100 mg tablet TAKE ONE (1) TABLET EVERY DAY BY ORAL ROUTE. losartan 100 mg tablet TAKE ONE (1) TABLET EVERY DAY BY ORAL ROUTE. No losartan 100 mg tablet TAKE ONE (1) TABLET EVERY DAY BY ORAL ROUTE. [facility] rosuvastati n 20 mg tablet TAKE ONE (1) TABLET EVERY DAY BY ORAL ROUTE FOR 90 DAYS. rosuvastati n 20 mg tablet TAKE ONE (1) TABLET EVERY DAY BY ORAL ROUTE FOR 90 DAYS. No rosuvastat in 20 mg tablet TAKE ONE (1) TABLET EVERY DAY BY ORAL ROUTE FOR 90 DAYS. [facility] ergocalcife rol (vitamin D2) 1,250 mcg (50,000 unit) capsule TAKE 1 CAPSULE EVERY WEEK BY ORAL ROUTE FOR 90 DAYS. ergocalcife rol (vitamin D2) 1,250 mcg (50,000 unit) capsule TAKE 1 CAPSULE EVERY WEEK BY ORAL ROUTE FOR 90 DAYS. No ergocalcif kaylen (vitamin D2) 1,250 mcg (50,000 unit) capsule TAKE 1 CAPSULE EVERY WEEK BY ORAL ROUTE FOR 90 DAYS. [facility] glipizide 5 mg tablet TAKE 1 TABLET TWICE A DAY BY ORAL ROUTE DIRECTED FOR 90 DAYS. glipizide 5 mg tablet TAKE 1 TABLET TWICE A DAY BY ORAL ROUTE DIRECTED FOR 90 DAYS. No glipizide 5 mg tablet TAKE 1 TABLET TWICE A DAY BY ORAL ROUTE DIRECTED FOR 90 DAYS. [facility] hydrocodone 10 mg-acetamin ophen 325 mg tablet TAKE 1 TABLET EVERY 6 HOURS BY ORAL ROUTE NEEDED FOR 30 DAYS. hydrocodone 10 mg-acetamin ophen 325 mg tablet TAKE 1 TABLET EVERY 6 HOURS BY ORAL ROUTE NEEDED FOR 30 DAYS. No hydrocodon e 10 mg-acetami nophen 325 mg tablet TAKE 1 TABLET EVERY 6 HOURS BY ORAL ROUTE NEEDED FOR 30 DAYS. [facility] losartan 100 mg tablet TAKE ONE (1) TABLET EVERY DAY BY ORAL ROUTE. losartan 100 mg tablet TAKE ONE (1) TABLET EVERY DAY BY ORAL ROUTE. No losartan 100 mg tablet TAKE ONE (1) TABLET EVERY DAY BY ORAL ROUTE. [facility] rosuvastati n 20 mg tablet TAKE ONE (1) TABLET EVERY DAY BY ORAL ROUTE FOR 90 DAYS. rosuvastati n 20 mg tablet TAKE ONE (1) TABLET EVERY DAY BY ORAL ROUTE FOR 90 DAYS. No rosuvastat in 20 mg tablet TAKE ONE (1) TABLET EVERY DAY BY ORAL ROUTE FOR 90 DAYS. [facility] Advair Diskus 250 mcg-50 mcg/dose powder for inhalation INHALE 1 PUFF TWICE A DAY BY INHALATION ROUTE NEEDED FOR 30 DAYS. Advair Diskus 250 mcg-50 mcg/dose powder for inhalation INHALE 1 PUFF TWICE A DAY BY INHALATION ROUTE NEEDED FOR 30 DAYS. No Advair Diskus 250 mcg-50 mcg/dose powder for inhalation INHALE 1 PUFF TWICE A DAY BY INHALATION ROUTE NEEDED FOR 30 DAYS. [facility] albuterol sulfate 2.5 mg/3 mL (0.083 %) solution for nebulizatio n USE ONE VIAL VIA NEBULIZER EVERY 6 TO 8 HOURS NEEDED. albuterol sulfate 2.5 mg/3 mL (0.083 %) solution for nebulizatio n USE ONE VIAL VIA NEBULIZER EVERY 6 TO 8 HOURS NEEDED. No albuterol sulfate 2.5 mg/3 mL (0.083 %) solution for nebulizati on USE ONE VIAL VIA NEBULIZER EVERY 6 TO 8 HOURS NEEDED. [facility] albuterol sulfate HFA 90 mcg/actuati on aerosol inhaler INHALE ONE (1) PUFF(S) BY MOUTH EVERY 3 TO 4 HOURS NEEDED. albuterol sulfate HFA 90 mcg/actuati on aerosol inhaler INHALE ONE (1) PUFF(S) BY MOUTH EVERY 3 TO 4 HOURS NEEDED. No albuterol sulfate HFA 90 mcg/actuat ion aerosol inhaler INHALE ONE (1) PUFF(S) BY MOUTH EVERY 3 [address] [facility] cyclobenzap rine 5 mg tablet TAKE 1 TABLET 3 TIMES A DAY BY ORAL ROUTE NEEDED FOR 30 DAYS. cyclobenzap rine 5 mg tablet TAKE 1 TABLET 3 TIMES A DAY BY ORAL ROUTE NEEDED FOR 30 DAYS. No cyclobenza nina 5 mg tablet TAKE 1 TABLET 3 TIMES A DAY BY ORAL ROUTE NEEDED FOR [address] [facility] ergocalcife rol (vitamin D2) 1,250 mcg (50,000 unit) capsule TAKE 1 CAPSULE EVERY WEEK BY ORAL ROUTE FOR 90 DAYS. ergocalcife rol (vitamin D2) 1,250 mcg (50,000 unit) capsule TAKE 1 CAPSULE EVERY WEEK BY ORAL ROUTE FOR 90 DAYS. No ergocalcif kaylen (vitamin D2) 1,250 mcg (50,000 unit) capsule TAKE 1 CAPSULE EVERY WEEK BY ORAL ROUTE FOR [address] [facility] etodolac ER 600 mg tablet,exte nded release 24 hr TAKE 1 TABLET EVERY DAY BY ORAL ROUTE DIRECTED FOR 30 DAYS. etodolac ER 600 mg tablet,exte nded release 24 hr TAKE 1 TABLET EVERY DAY BY ORAL ROUTE DIRECTED FOR 30 DAYS. No etodolac ER 600 mg tablet,ext ended release 24 hr TAKE 1 TABLET EVERY DAY BY ORAL ROUTE DIRECTED FOR 30 DAYS. [facility] glipizide 5 mg tablet TAKE 1 TABLET TWICE A DAY BY ORAL ROUTE DIRECTED FOR 30 DAYS. glipizide 5 mg tablet TAKE 1 TABLET TWICE A DAY BY ORAL ROUTE DIRECTED FOR 30 DAYS. No glipizide 5 mg tablet TAKE 1 TABLET TWICE A DAY BY ORAL ROUTE DIRECTED FOR 30 DAYS. [facility] hydralazine 25 mg tablet TAKE ONE (1) TABLET 3 TIMES A DAY BY ORAL ROUTE AROUND THE CLOCK FOR 30 DAYS. hydralazine 25 mg tablet TAKE ONE (1) TABLET 3 TIMES A DAY BY ORAL ROUTE AROUND THE CLOCK FOR 30 DAYS. No hydralazin e 25 mg tablet TAKE ONE (1) TABLET 3 TIMES A DAY BY ORAL ROUTE AROUND THE CLOCK FOR 30 DAYS. [facility] hydrocodone 10 mg-acetamin ophen 325 mg tablet TAKE 1 TABLET EVERY 6 HOURS BY ORAL ROUTE NEEDED FOR 30 DAYS. hydrocodone 10 mg-acetamin ophen 325 mg tablet TAKE 1 TABLET EVERY 6 HOURS BY ORAL ROUTE NEEDED FOR 30 DAYS. No hydrocodon e 10 mg-acetami nophen 325 mg tablet TAKE 1 TABLET EVERY 6 HOURS BY ORAL ROUTE NEEDED FOR 30 DAYS. [facility] losartan 100 mg tablet TAKE ONE (1) TABLET EVERY DAY BY ORAL ROUTE. losartan 100 mg tablet TAKE ONE (1) TABLET EVERY DAY BY ORAL ROUTE. No losartan 100 mg tablet TAKE ONE (1) TABLET EVERY DAY BY ORAL ROUTE. [facility] metformin 500 mg tablet TAKE 1 TABLET TWICE A DAY BY ORAL ROUTE FOR 30 DAYS. metformin 500 mg tablet TAKE 1 TABLET TWICE A DAY BY ORAL ROUTE FOR 30 DAYS. No metformin 500 mg tablet TAKE 1 TABLET TWICE A DAY BY ORAL ROUTE FOR 30 DAYS. [facility] peg 3350-electr olytes 236 gram-22.74 gram-6.74 gram-5.86 gram solution TAKE 2000 ML(S) BY MOUTH TWICE A DAY FOR 1 DAY. peg 3350-electr olytes 236 gram-22.74 gram-6.74 gram-5.86 gram solution TAKE 2000 ML(S) BY MOUTH TWICE A DAY FOR 1 DAY. No peg 3350-elect rolytes 236 gram-22.74 gram-6.74 gram-5.86 gram solution TAKE 2000 ML(S) BY MOUTH TWICE A DAY FOR 1 DAY. [facility] Plenvu 140 gram-9 gram-5.2 gram powder packs Take 1 packet 3 times a day by oral route for 1 day. Plenvu 140 gram-9 gram-5.2 gram powder packs Take 1 packet 3 times a day by oral route for 1 day. No 1packet (s) TID Plenvu 140 gram-9 gram-5.2 gram powder packs Take 1 packet 3 times a day by oral route for 1 day. [facility] prednisone 10 mg tablet TAKE TWO (2) TABLET(S) BY MOUTH ONCE A DAY FOR 3 DAYS THEN TAKE ONE TABLET ONCE A DAY FOR 3 DAYS. prednisone 10 mg tablet TAKE TWO (2) TABLET(S) BY MOUTH ONCE A DAY FOR 3 DAYS THEN TAKE ONE TABLET ONCE A DAY FOR 3 DAYS. No prednisone 10 mg tablet TAKE TWO (2) TABLET(S) BY MOUTH ONCE A DAY FOR 3 DAYS THEN TAKE ONE TABLET ONCE A DAY FOR 3 DAYS. [facility] rosuvastati n 20 mg tablet TAKE ONE (1) TABLET EVERY DAY BY ORAL ROUTE FOR 90 DAYS. rosuvastati n 20 mg tablet TAKE ONE (1) TABLET EVERY DAY BY ORAL ROUTE FOR 90 DAYS. No rosuvastat in 20 mg tablet TAKE ONE (1) TABLET EVERY DAY BY ORAL ROUTE FOR 90 DAYS. [facility] solifenacin 10 mg tablet TAKE 1 TABLET EVERY DAY BY ORAL ROUTE DIRECTED FOR 30 DAYS. solifenacin 10 mg tablet TAKE 1 TABLET EVERY DAY BY ORAL ROUTE DIRECTED FOR 30 DAYS. No solifenaci n 10 mg tablet TAKE 1 TABLET EVERY DAY BY ORAL ROUTE DIRECTED FOR 30 DAYS. [facility] Vital Signs Vital Name Observation Time Observation Value Comments S ource Height 2022-05-18 00:00:00 63 [in_i] [facility] BMI (Body Mass Index) 2022-05-18 00:00:00 76.7 kg/m2 [facility] Body Weight 2022-05-18 00:00:00 433 [lb_av] [facility] Height 2022-04-16 00:00:00 63 [in_i] [facility] BMI (Body Mass Index) 2022-04-16 00:00:00 73.5 kg/m2 [facility] Body Weight 2022-04-16 00:00:00 415 [lb_av] [facility] Systolic blood pressure 2021-08-28 04:26:00 147 mm[Hg] [facility] Diastolic blood pressure 2021-08-28 04:26:00 87 mm[Hg] [facility] Heart rate 2021-08-28 04:26:00 96 /min [facility] Body temperature 2021-08-28 04:26:00 36.94 [facility] Respiratory rate 2021-08-28 04:26:00 18 /min [facility] Body height 2021-08-28 04:26:00 160 cm [facility] Body weight 2021-08-28 04:26:00 195.047 kg [facility] BMI 2021-08-28 04:26:00 76.17 kg/m2 [facility] Oxygen saturation in Arterial blood by Pulse oximetry 2021-08-28 04:26:00 97 /min [facility] Procedures Procedure Date / Time Performed Performing Clinician Source XR SHOULDER 2+ VW LEFT 2021-08-28 06:42:55 Emory Ascencio [facility] NOTICE OF PRIVACY PRACTICES 2021-08-28 04:13:11 Doctor Unassigned, [place] CONSENT/REFUSAL FOR DIAGNOSI S AND TREATMENT 2021-08-28 04:09:48 Doctor Unassigned, [place] Esophagogastroduodenoscopy 2017-04-12 00:00:00 [facility] Hysterectomy [facility] Laparoscopic Adjustable Asad lizette Banding [facility] Encounters Start Date/Time End Date/Time Encounter Type Admission Type Attending Clinicians Care Facility Care Department Encounter ID Source 2022-08-25 09:57:53 Outpatient [facility] [id number] [facility] 2022-07-09 10:45:00 Inpatient PEE LINARES [facility] [id number] [facility] 2022-04-21 11:00:00 Inpatient CANDELARIO HUFF [facility] [id number] [facility] 2022-04-17 11:57:06 Outpatient [facility] [id number] [facility] 2022-03-20 11:00:00 Inpatient CANDELARIO HUFF [facility] [id number] [facility] 2022-03-02 11:00:00 Inpatient CANDELARIO HUFF [facility] [id number] [facility] 2023-01-26 00:00:00 2023-01-26 00:00:00 Outpatient GC_GCBZW_Ka diyala_S PRIV PRIV [id number] [facility] 2023-01-25 00:00:00 2023-01-25 00:00:00 Outpatient GC_GCBZW_Ka diyala_S PRIV PRIV [id number] [facility] 2022-08-26 00:00:00 2022-08-26 00:00:00 Outpatient Tonie_Kaila rivera [facility] [id number] [facility] 2022-07-10 14:00:00 2022-07-10 14:00:00 Outpatient PAM SHAY [id number] Veronica Gamino 2022-07-07 00:00:00 2022-07-07 00:00:00 Outpatient TONIE_ELIUD PAZ [facility] [id number] [facility] 2022-05-18 00:00:00 2022-05-18 00:00:00 Pee Tracey MD: [id number], [address], [place] [address] , [address] [facility] [id number] [facility] 2022-04-16 00:00:00 2022-04-16 00:00:00 Outpatient FERGUSON_JO HN [facility] [id number] [facility] 2022-04-16 00:00:00 2022-04-16 00:00:00 Outpatient FERGUSON_JO HN [facility] [id number] [facility] 2022-04-16 00:00:00 2022-04-16 00:00:00 Pee Tracey MD: [id number], [address], [place] [address] , [address] [facility] [id number] [facility] 2022-04-15 00:00:00 2022-04-15 00:00:00 Outpatient FERGUSON_JO HN [place] [id number] [facility] 2022-04-03 00:00:00 2022-04-03 00:00:00 Outpatient FERGUSON_JO HN [facility] [id number] [facility] 2022-04-03 00:00:00 2022-04-03 00:00:00 Outpatient FERGUSON_JO HN [facility] [id number] [facility] 2021-10-13 02:41:00 2021-10-13 02:41:00 Outpatient FERGUSON_JO HN [facility] [id number] [facility] 2021-08-27 23:29:00 2021-08-28 02:53:00 Emergency X [facility] ERT [id number] [facility] 2021-08-27 23:29:00 2021-08-28 02:53:00 Emergency [facility] Ascencio [facility] [id number] [facility] 2019-12-06 09:30:00 2019-12-06 09:30:00 Outpatient R NOE KENNEY [facility] [id number] [facility] 2019-11-15 10:00:00 2019-11-15 10:00:00 Outpatient R ANNE MARIE [facility] [id number] [facility] 2019-10-27 00:00:00 2019-10-27 00:00:00 Telephone Lee Atkinson [facility] Building 1.114 [id number] 2019-10-27 00:00:00 2019-10-27 00:00:00 Orders Only Doctor Unassigned, [place] [facility] 1.114 [id number] 2019-08-16 13:40:00 2019-08-16 13:40:00 Outpatient R EDILMA STOVALL [facility] [id number] [facility] 2019-06-14 13:00:00 2019-06-14 13:00:00 Outpatient R KWABENA ROBERTS STRAHIL [facility] [id number] [facility] 2019-06-07 00:00:00 2019-06-07 00:00:00 Telephone Lucie Earl [facility] [address] .114 [id number] 2019-03-16 13:19:06 2019-06-06 18:29:06 Office Visit Manuela Hitchcock [facility] .114 [id number] 2019-06-06 00:00:00 2019-06-06 00:00:00 Refill Lucie Earl [facility] [address] [id number] 2019-05-31 15:30:00 2019-05-31 15:30:00 Outpatient KWABENA HUTCHINSON STRAINJose [facility] [id number] [facility] 2019-05-24 00:00:00 2019-05-24 00:00:00 Patient Secure Msg Doctor Unassigned, [place] [id number] 2019-03-16 13:20:00 2019-03-16 14:01:40 Outpatient MANUELA PATRICIO [facility] [id number] [facility] 2019-03-16 00:00:00 2019-03-16 00:00:00 Orders Only Doctor Unassigned, [place] [id number] 2018-12-28 11:30:00 2018-12-28 12:01:25 [facility] [id number] [facility] 2018-11-08 11:00:00 2018-11-08 11:00:00 Outpatient EDILMA BRYANT [facility] [id number] [facility] 2009-06-20 09:28:00 2009-06-20 09:28:00 Outpatient LARON FORBES [facility] [id number] [facility] 2009-05-15 14:26:00 2009-05-16 14:07:00 Inpatient LARON FORBES [facility] [id number] [facility] 2008-11-05 12:24:00 2008-11-05 12:24:00 Outpatient LARON FORBES [facility] [id number] [facility] 2006-11-09 11:28:00 2006-11-09 14:20:00 Emergency ER MELVIN POLLOCK [facility] [id number] [facility]
[2023-05-14 19:45] LABS: SARS-CoV-2 Antigen Rapid Res Positive (Negative)
--- NOTE | 2023-05-14 19:46 | ER ---
Nurse's Notes [facility] Name: Sahra Dewey Age: 57 yrs Sex: Female : 1965 Arrival Date: 05/14/2023 Time: 18:48 Bed 11 Private MD: Diagnosis: COVID-19 Presentation: 05/14 19:04 Chief complaint: Patient states: cough, congestion started yesterday morning. taking rv Mucinex with no help. Coronavirus screen: Client presents with at least one sign or symptom that may indicate coronavirus-19. Standard/surgical mask placed on the client. Provider contacted for isolation considerations. Ebola Screen: No symptoms or risks identified at this time. Initial Sepsis Screen: Does the patient meet any 2 criteria? No. Patient's initial sepsis screen is negative. Does the patient have a suspected source of infection? No. Patient's initial sepsis screen is negative. Risk Assessment: Do you want to hurt yourself or someone else? Patient reports no desire to harm self or others. Onset of symptoms was May 14, 2023. 19:04 Method Of Arrival: Ambulatory rv 19:04 Acuity: MESSI 4 rv Triage Assessment: 19:06 General: Appears in no apparent distress. Behavior is calm, cooperative. Pain: Denies rv pain. Neuro: Level of Consciousness is awake, alert, obeys commands, Oriented to person, place, time, situation. Cardiovascular: Capillary refill < 3 seconds Patient's skin is warm and dry. Respiratory: Reports cough that is persistent Airway is patent Respiratory effort is even, unlabored. GI: No signs and/or symptoms were reported involving the gastrointestinal system. : No signs and/or symptoms were reported regarding the genitourinary system. Derm: No signs and/or symptoms reported regarding the dermatologic system. Historical: - Allergies: 19:06 Iodine; rv - PMHx: 19:06 Asthma; Diabetes - NIDDM; Hypertension; rv - PSHx: 19:06 Total abdominal hysterectomy; rv - Immunization history:: Adult Immunizations up to date. - Social history:: Smoking status: Patient denies any tobacco usage or history of. Screenin:08 [facility] ED Fall Risk Assessment (Adult) History of falling in the last 3 months, rv including since admission No falls in past 3 months (0 pts) Score/Fall Risk Level 0 - 2 = Low Risk Oriented to surroundings, Maintained a safe environment, Educated pt \T\ family on fall prevention, incl call for assistance when getting out of bed, Assessed \T\ reinforced patient's understanding of fall precautions. Abuse screen: Denies threats or abuse. Denies injuries from another. Nutritional screening: No deficits noted. Tuberculosis screening: No symptoms or risk factors identified. Assessment: 19:29 General: Appears in no apparent distress. Behavior is calm, cooperative. Pain: tm6 Complains of pain in epigastric area Pain currently is 3 out of 10 on a pain scale. Pain began 2-3 days ago. Aggravated by coughing. Neuro: Level of Consciousness is awake, alert, obeys commands, Oriented to person, place, time, situation. Cardiovascular: Capillary refill < 3 seconds Patient's skin is warm and dry. Respiratory: Reports cough that is non-productive, persistent Airway is patent Respiratory effort is even, unlabored, Respiratory pattern is regular, symmetrical, Onset: The symptoms/episode began/occurred two days ago. GI: Abdomen is round obese. : No signs and/or symptoms were reported regarding the genitourinary system. EENT: Reports cough. Derm: No signs and/or symptoms reported regarding the dermatologic system. Musculoskeletal: No signs and/or symptoms reported regarding the musculoskeletal system. 19:54 Reassessment: Patient appears in no apparent distress at this time. No changes from tm6 previously documented assessment. discharge pending xray result. Vital Signs: 19:04 BP 142 / 84; Pulse 103; Resp 19; Temp 98; Pulse Ox 99% ; Weight 188.24 kg; Height 5 ft. rv 3 in. ; 19:53 BP 134 / 102; Pulse 98; Resp 19; Temp 98.1(TE); Pulse Ox 100% ; Pain 0/10; tm6 19:04 Body Mass Index 73.51 (188.24 kg, 160.02 cm) rv 19:53 Pain Scale: Adult tm6 ED Course: 18:53 Patient arrived in ED. mg5 18:55 Linda Andrews PA-C is PHCP. sb4 18:55 Zach Maddox MD is Attending Physician. sb4 19:06 Triage completed. rv 19:06 Arm band placed on right wrist. rv 19:08 Patient has correct armband on for positive identification. rv 19:08 No provider procedures requiring assistance completed. Patient did not have IV access rv during this emergency room visit. 19:26 Ricardo Sam, RN is Primary Nurse. tm6 19:27 Flu Sent. bc6 19:27 SARS RAPID Sent. bc6 19:29 Provided Education on: plan of care. Door closed. Noise minimized. Warm blanket given. tm6 19:50 Chest Pa And Lat (2 Views) XRAY In Process Unspecified. EDMS Administered Medications: No medications were administered Medication: 19:08 VIS not applicable for this client. rv Outcome: 19:45 Discharge ordered by MD. sb4 20:35 Discharged to home via wheelchair, with family, pf1 20:35 Condition: stable 20:35 Discharge instructions given to patient, family, Instructed on discharge instructions, follow up and referral plans. Demonstrated understanding of instructions, follow-up care, medications, Prescriptions given X 1, 20:45 Patient left the ED. pf1 Signatures: Dispatcher [employer] EDMS Hamilton Pickering RN RN rv Linda Andrews, PA-C PA-C sb4 Tata Dukes, RN RN pf1 Akua Nicholas 6 Ita Dewitt mg5 Ricardo Sam, RN RN tm6
--- NOTE | 2023-05-14 19:46 | EDPHYS ---
Physician Documentation [facility] Name: Sahra Dewey Age: 57 yrs Sex: Female : 1965 Arrival Date: 05/14/2023 Time: 18:48 Bed 11 Private MD: ED Physician Zach Maddox HPI: 05/14 19:23 This 57 yrs old Black Female presents to ER via Ambulatory with complaints of Flu sb4 Symptoms. 19:23 cough and nasal congestion x 2 days. taking mucinex with minimal relief. denies any sb4 sputum, no fever, no sore throat, no known sick contacts. no chest pain or shortness of breath. Historical: - Allergies: 19:06 Iodine; rv - PMHx: 19:06 Asthma; Diabetes - NIDDM; Hypertension; rv - PSHx: 19:06 Total abdominal hysterectomy; rv - Immunization history:: Adult Immunizations up to date. - Social history:: Smoking status: Patient denies any tobacco usage or history of. ROS: 19:23 Constitutional: Negative for fever, chills, and weight loss, sb4 19:23 ENT: Positive for sinus congestion, 19:23 Respiratory: Positive for cough, with no reported sputum, Exam: 19:23 Head/Face: Normocephalic, atraumatic. Eyes: Extra-ocular motions intact. Periorbital sb4 areas with no swelling, redness, or edema. ENT: Mucous membranes moist. Cardiovascular: Regular rate and rhythm with a normal S1 and S2. Respiratory: Lungs have equal breath sounds bilaterally, clear to auscultation and percussion. No rales, rhonchi or wheezes noted. No increased work of breathing, no retractions or nasal flaring. Abdomen/GI: Soft, non-tender, no distension. Skin: Warm, dry with normal turgor. Normal color with no rashes, no lesions, and no evidence of cellulitis. MS/ Extremity: Pulses equal, no cyanosis. Neurovascular intact. Full, normal range of motion. 19:23 Constitutional: The patient appears alert, awake, obese, Vital Signs: 19:04 BP 142 / 84; Pulse 103; Resp 19; Temp 98; Pulse Ox 99% ; Weight 188.24 kg; Height 5 ft. rv 3 in. ; 19:53 BP 134 / 102; Pulse 98; Resp 19; Temp 98.1(TE); Pulse Ox 100% ; Pain 0/10; tm6 19:04 Body Mass Index 73.51 (188.24 kg, 160.02 cm) rv 19:53 Pain Scale: Adult tm6 MDM: 19:11 Patient medically screened. sb4 19:23 Differential diagnosis: viral Infection, URI, bronchitis, pneumonia. sb4 19:45 Data reviewed: vital signs, nurses notes, lab test result(s), and as a result, I will sb4 discharge patient. Counseling: I had a detailed discussion with the patient and/or guardian regarding the historical points, exam findings, and any diagnostic results supporting the discharge/admit diagnosis, lab results, to return to the emergency department if symptoms worsen or persist or if there are any questions or concerns that arise at home. 05/14 19:23 Order name: SARS RAPID; Complete Time: 19:46 sb4 05/14 19:23 Order name: Flu; Complete Time: 19:54 sb4 05/14 19:23 Order name: Chest Pa And Lat (2 Views) XRAY; Complete Time: 20:20 sb4 Administered Medications: No medications were administered Disposition Summary: 05/14/23 19:45 Discharge Ordered Notes: Location: Home sb4 Problem: new sb4 Symptoms: are unchanged sb4 Condition: Stable sb4 Diagnosis - COVID-19 sb4 Followup: sb4 - With: Emergency Department - When: As needed - Reason: Trouble breathing, Worsening of condition Discharge Instructions: - Discharge Summary Sheet sb4 - 10 Things You Can Do to Manage Your COVID-19 Symptoms at Home - [facility] (10/11/2020) sb4 - COVID-19: What to Do If You Are Sick - [facility] (06/17/2021) sb4 Forms: - Thank You Letter sb4 - Patient Portal Instructions sb4 - Leadership Thank You Letter sb4 Prescriptions: - Tessalon Perles 100 mg Oral capsule - take 2 capsule ORAL route every 8 hours As needed; 30 capsule; Refills: 0, sb4 Product Selection Permitted Signatures: Dispatcher [employer] Hamilton Ventura RN RN Linda Reza PA-C PA-C sb4
--- NOTE | 2023-05-14 20:16 | RAD REPORT ---
EXAM DESCRIPTION: RAD - Chest Pa And Lat (2 Views) - 05/14/2023 7:48 pm CLINICAL HISTORY: Cough;Congestion COMPARISON: Chest Single View dated 03/30/2022; Chest Single View dated 10/30/2018; Chest Pa And Lat (2 Views) dated 05/10/2018; CHEST SINGLE VIEW dated 04/22/2014 FINDINGS: Lines: None. Lungs: No evidence of edema or pneumonia. Pleural: No significant pleural effusions or pneumothorax. Cardiac: Similar size and configuration Mediastinum: Within normal limits. Bones: No acute fractures. Other: None IMPRESSION: No acute cardiopulmonary disease.
[2023-05-14 21:13] VITALS: BP 134/102; TEMP 98.1; O2SAT 100
== END ==
LOC: ER 18:48
DX: U07.1 COVID-19 (principal); Z91.048 Other nonmedicinal substance allergy status; E11.9 Type 2 diabetes mellitus without complications; I10 Essential (primary) hypertension
CPT/HCPCS: 36415; 71046; 87804; 87811; 99283

== ENCOUNTER → 2023-05-22 | Emergency (ER) | payer OTHER ==
[~2023-05-22] MED LIST: CEFTRIAXONE 1000 MG/VIAL ONE; FAMOTIDINE 20 MG/2 ML VIAL IV ONE; NA CHLORIDE 0.9% 1,000 ML ONE; ONDANSETRON 4 MG/2 ML VIAL ONE
--- OUTSIDE RECORDS SUMMARY | 2023-05-22 15:50 | XMS REPORT | Continuity of Care Document ---
Author Name Unknown Address [address] [facility] [address]. [address] [place] [address] [facility] thconnect Address [address] [facility]. [address] [place] [address] Care Team Providers Care Manager Operations Name Role Phone LUCIE EARL Primary Care Physician Unavaila PEE Rouse Attending Clinician Unavail able CANDELARIO ELI Attending Clinician Unavaila andrews GC_GCBZW_Kadiyala_S Attending Clinician Unavaila andrews [place] Attending Clinician Unavailable PAM SHAY Attending Clinician Unavailable DEMETRIO Attending Clinician Unavailable EMORY ASCENCIO Attending Clinician Unavailable Emory Garner Attending Clinician [phone] NOE KENNEY Attending Clinician Unavailable Lee Atkinson MD Attending Clinician + [phone] Doctor Unassigned, [place] Attending Clinician EDILMA Prieto Attending Clinician Unavailable KWABENA ROBERTS Attending Clinician Unavaila KWABENA Perkins Attending Clinician Unavaila Lucie Haley Attending Clinician + [phone] Manuela oDyle Attending Clinician + [phone] MANUELA HITCHCOCK Attending Clinician Unavailable LARON YAP Attending Clinician Unavailable MELVIN POLLOCK Attending Clinician Unavailab sukh GC_GCBZW_Kadiyala_S Admitting Clinician Unavaila andrews [place] Admitting Clinician Unavailable DEMETRIO Admitting Clinician Unavailable EMORY ASCENCIO Admitting Clinician Unavailable LARON YAP Admitting Clinician Unavailable Payers Payer Name Policy Type Policy Number Effective Date Expirati on Date Source [facility] (MEDICAID HMO) [id number] 2022 00:00:00 [facility] [id number] 00:00:00 Problems Condition Name Condition Details Condition [...] Morbid obesity Disease Active 10-12 00:00: 00 [facility] Type 2 diabetes mellitus without complicati on, without long-term current use of insulin Type 2 diabetes mellitus without complicati on, without long-term current use of insulin Disease Active 10-12 00:00: 00 [facility] Bilateral lower extremity edema Bilateral lower extremity edema Disease Active 10-12 00:00: 00 [facility] Snoring Snoring Disease Active 10-12 00:00: 00 [facility] GORGE (obstructi ve sleep apnea) GORGE (obstructi ve sleep apnea) Disease Active [facility] Allergies, Adverse Reactions, Alerts Allergy Name Allergy Type Status Severity Reaction(s) Onset Date Inactive Date Treating Clinician Comments Source IODINE DRUG INGREDI Active Unknown-Cmnt 12-05 00:00: 00 [facility] Iodine Propensi ty to adverse reaction s Active Unknown - See comments 12-05 00:00: 00 [facility] Social History Social Habit Start Date Stop Date Quantity Comments Source Alcohol intake 2021-08-28 00:00:00 2021-08-28 00:00:00 Ex-drinker (finding) [facility] Exposure to SARS-CoV-2 (event) 2021-08-17 00:00:00 2021-08-27 23:24:[address] [facility] Tobacco use and exposure 2018-10-06 00:00:00 2018-10-06 00:00:[address] [facility] Sex Assigned At 1965 00:00:00 1965 00:00:00 [facility] Smoking Status Start Date Stop Date Source Never Smoker [facility] Medications Ordered Medication Name Filled Medication Name Start Date Stop Date Current Medication? Ordering Clinician Indication Dosage Frequency Signature (SIG) Comments Components Source predniSONE (DELTASONE) tablet 40 mg 08-28 08:45: 00 08-28 07:46 :00 No 40mg 40 mg, Oral, ONCE, 1 dose, On Wed08/28/21 at 0345, PETAR [facility] predniSONE 20 mg tablet 08-28 00:00: 00 09-02 04:59 :00 No [id number] 40mg Take 2 tablets by mouth every morning for 4 days. [facility] KCL 20 mEq tablet 04-18 00:00: 00 Yes 20meq Take 1 tablet by mouth daily. [facility] traMADol 50 mg tablet 04-12 00:00: 00 Yes [id number] 50mg Take 1 tablet by mouth every 6 (six) hours as needed for Pain (scale 4-6). [facility] ibuprofen 600 mg tablet 04-12 00:00: 00 Yes [id number] 600mg Take 1 tablet by mouth every 8 (eight) hours as needed for Pain (scale 4-6). [facility] metFORMIN 500 mg tablet 03-30 00:00: 00 Yes [id number] 500mg Take 1 tablet by mouth 2 (two) times daily with meals. FOLLOW-UP FOR FASTING LABS/REFIL LS [facility] fluticasone propion/balbir meterol (ADVAIR DISKUS INHALE) 2018-03 14:37: 44 Yes Inhale. [facility] albuterol 90 mcg/actuati on inhaler 2018-03 14:37: 44 Yes 2{puff} Inhale 2 Puffs every 6 (six) hours as needed for Wheezing or Shortness of Breath. [facility] LORATADINE 10 mg tablet 2018-03 00:00: 00 Yes [id number] TAKE 1 TABLET BY MOUTH EVERY DAY [facility] predniSONE 50 mg tablet 12-26 00:00: 00 08-28 00:00 :00 No 50mg Take 1 tablet by mouth SEE-INSTRU CTIONS. [facility] furosemide 40 mg tablet 12-16 00:00: 00 Yes 40mg Take 1 tablet by mouth daily. [facility] losartan 50 mg tablet 12-07 00:00: 00 Yes 50mg Take 50 mg by mouth daily. [facility] Lancing Device with Lancets (ONETOUCH DELICA PLUS LANC DEV) Kit 10-21 00:00: 00 Yes [id number] Use as directed, once a day to monitor blood glucose for ICD code E11.9 [facility] lancets (ONETOUCH DELICA PLUS LANCET) 30 gauge Misc 10-21 00:00: 00 Yes [id number] Use as directed, once a day to monitor blood glucose for ICD code E11.9 [facility] blood sugar diagnostic (ONETOUCH ULTRA BLUE TEST STRIP) strip 10-21 00:00: 00 Yes [id number] Use as directed, once a day to monitor blood glucose for ICD code E11.9 [facility] Blood-Gluco se Meter (ONETOUCH ULTRA2 METER) Kit 10-21 00:00: 00 Yes [id number] Use as directed, once a day to monitor blood glucose for ICD code E11.9 [facility] fluticasone propionate 50 mcg/actuati on nasal spray 10-06 00:00: 00 Yes [id number] 2{spray } Use 2 Sprays in each nostril daily. [facility] ergocalcife rol (vitamin D2) 1,250 mcg (50,000 unit) capsule TAKE 1 CAPSULE EVERY WEEK BY ORAL ROUTE FOR 90 DAYS. ergocalcife rol (vitamin D2) 1,250 mcg (50,000 unit) capsule TAKE 1 CAPSULE EVERY WEEK BY ORAL ROUTE FOR 90 DAYS. No ergocalcif kaylen (vitamin D2) 1,250 mcg (50,000 unit) capsule TAKE 1 CAPSULE EVERY WEEK BY ORAL ROUTE FOR 90 DAYS. [facility] glipizide 5 mg tablet TAKE 1 TABLET TWICE A DAY BY ORAL ROUTE DIRECTED FOR 90 DAYS. glipizide 5 mg tablet TAKE 1 TABLET TWICE A DAY BY ORAL ROUTE DIRECTED FOR 90 DAYS. No glipizide 5 mg tablet TAKE 1 TABLET TWICE A DAY BY ORAL ROUTE DIRECTED FOR 90 DAYS. [facility] hydrocodone 10 mg-acetamin ophen 325 mg tablet TAKE 1 TABLET EVERY 6 HOURS BY ORAL ROUTE NEEDED FOR 30 DAYS. hydrocodone 10 mg-acetamin ophen 325 mg tablet TAKE 1 TABLET EVERY 6 HOURS BY ORAL ROUTE NEEDED FOR 30 DAYS. No hydrocodon e 10 mg-acetami nophen 325 mg tablet TAKE 1 TABLET EVERY 6 HOURS BY ORAL ROUTE NEEDED FOR 30 DAYS. [facility] losartan 100 mg tablet TAKE ONE (1) TABLET EVERY DAY BY ORAL ROUTE. losartan 100 mg tablet TAKE ONE (1) TABLET EVERY DAY BY ORAL ROUTE. No losartan 100 mg tablet TAKE ONE (1) TABLET EVERY DAY BY ORAL ROUTE. [facility] rosuvastati n 20 mg tablet TAKE ONE (1) TABLET EVERY DAY BY ORAL ROUTE FOR 90 DAYS. rosuvastati n 20 mg tablet TAKE ONE (1) TABLET EVERY DAY BY ORAL ROUTE FOR 90 DAYS. No rosuvastat in 20 mg tablet TAKE ONE (1) TABLET EVERY DAY BY ORAL ROUTE FOR 90 DAYS. [facility] ergocalcife rol (vitamin D2) 1,250 mcg (50,000 unit) capsule TAKE 1 CAPSULE EVERY WEEK BY ORAL ROUTE FOR 90 DAYS. ergocalcife rol (vitamin D2) 1,250 mcg (50,000 unit) capsule TAKE 1 CAPSULE EVERY WEEK BY ORAL ROUTE FOR 90 DAYS. No ergocalcif kaylen (vitamin D2) 1,250 mcg (50,000 unit) capsule TAKE 1 CAPSULE EVERY WEEK BY ORAL ROUTE FOR 90 DAYS. [facility] glipizide 5 mg tablet TAKE 1 TABLET TWICE A DAY BY ORAL ROUTE DIRECTED FOR 90 DAYS. glipizide 5 mg tablet TAKE 1 TABLET TWICE A DAY BY ORAL ROUTE DIRECTED FOR 90 DAYS. No glipizide 5 mg tablet TAKE 1 TABLET TWICE A DAY BY ORAL ROUTE DIRECTED FOR 90 DAYS. [facility] hydrocodone 10 mg-acetamin ophen 325 mg tablet TAKE 1 TABLET EVERY 6 HOURS BY ORAL ROUTE NEEDED FOR 30 DAYS. hydrocodone 10 mg-acetamin ophen 325 mg tablet TAKE 1 TABLET EVERY 6 HOURS BY ORAL ROUTE NEEDED FOR 30 DAYS. No hydrocodon e 10 mg-acetami nophen 325 mg tablet TAKE 1 TABLET EVERY 6 HOURS BY ORAL ROUTE NEEDED FOR 30 DAYS. [facility] losartan 100 mg tablet TAKE ONE (1) TABLET EVERY DAY BY ORAL ROUTE. losartan 100 mg tablet TAKE ONE (1) TABLET EVERY DAY BY ORAL ROUTE. No losartan 100 mg tablet TAKE ONE (1) TABLET EVERY DAY BY ORAL ROUTE. [facility] rosuvastati n 20 mg tablet TAKE ONE (1) TABLET EVERY DAY BY ORAL ROUTE FOR 90 DAYS. rosuvastati n 20 mg tablet TAKE ONE (1) TABLET EVERY DAY BY ORAL ROUTE FOR 90 DAYS. No rosuvastat in 20 mg tablet TAKE ONE (1) TABLET EVERY DAY BY ORAL ROUTE FOR 90 DAYS. [facility] ergocalcife rol (vitamin D2) 1,250 mcg (50,000 unit) capsule TAKE 1 CAPSULE EVERY WEEK BY ORAL ROUTE FOR 90 DAYS. ergocalcife rol (vitamin D2) 1,250 mcg (50,000 unit) capsule TAKE 1 CAPSULE EVERY WEEK BY ORAL ROUTE FOR 90 DAYS. No ergocalcif kaylen (vitamin D2) 1,250 mcg (50,000 unit) capsule TAKE 1 CAPSULE EVERY WEEK BY ORAL ROUTE FOR 90 DAYS. [facility] glipizide 5 mg tablet TAKE 1 TABLET TWICE A DAY BY ORAL ROUTE DIRECTED FOR 90 DAYS. glipizide 5 mg tablet TAKE 1 TABLET TWICE A DAY BY ORAL ROUTE DIRECTED FOR 90 DAYS. No glipizide 5 mg tablet TAKE 1 TABLET TWICE A DAY BY ORAL ROUTE DIRECTED FOR 90 DAYS. [facility] hydrocodone 10 mg-acetamin ophen [...] BY ORAL ROUTE NEEDED FOR 30 DAYS. [facility] losartan 100 mg tablet TAKE ONE (1) TABLET EVERY DAY BY ORAL ROUTE. losartan 100 mg tablet TAKE ONE (1) TABLET EVERY DAY BY ORAL ROUTE. No losartan 100 mg tablet TAKE ONE (1) TABLET EVERY DAY BY ORAL ROUTE. [facility] rosuvastati n 20 mg tablet TAKE ONE (1) TABLET EVERY DAY BY ORAL ROUTE FOR 90 DAYS. rosuvastati n 20 mg tablet TAKE ONE (1) TABLET EVERY DAY BY ORAL ROUTE FOR 90 DAYS. No rosuvastat in 20 mg tablet TAKE ONE (1) TABLET EVERY DAY BY ORAL ROUTE FOR 90 DAYS. [facility] Advair Diskus 250 mcg-50 [...] BY INHALATION ROUTE NEEDED FOR 30 DAYS. [facility] albuterol sulfate 2.5 mg/3 mL [...] EVERY 6 TO 8 HOURS NEEDED. [facility] albuterol sulfate HFA 90 mcg/actuati on aerosol inhaler INHALE ONE (1) PUFF(S) BY MOUTH EVERY 3 TO 4 HOURS NEEDED. albuterol sulfate HFA 90 mcg/actuati on aerosol inhaler INHALE ONE (1) PUFF(S) BY MOUTH EVERY 3 TO 4 HOURS NEEDED. No albuterol sulfate HFA 90 mcg/actuat ion aerosol inhaler INHALE ONE (1) PUFF(S) BY MOUTH EVERY 3 TO 4 HOURS NEEDED. [facility] cyclobenzap rine 5 mg tablet TAKE 1 TABLET 3 TIMES A DAY BY ORAL ROUTE NEEDED FOR 30 DAYS. cyclobenzap rine 5 mg tablet TAKE 1 TABLET 3 TIMES A DAY BY ORAL ROUTE NEEDED FOR 30 DAYS. No cyclobenza nina 5 mg tablet TAKE 1 TABLET 3 TIMES A DAY BY ORAL ROUTE NEEDED FOR 30 DAYS. [facility] ergocalcife rol (vitamin D2) 1,250 [...] BY ORAL ROUTE FOR 90 DAYS. [facility] etodolac ER 600 mg tablet,exte [...] BY ORAL ROUTE DIRECTED FOR 30 DAYS. [facility] glipizide 5 mg tablet TAKE 1 TABLET TWICE A DAY BY ORAL ROUTE DIRECTED FOR 30 DAYS. glipizide 5 mg tablet TAKE 1 TABLET TWICE A DAY BY ORAL ROUTE DIRECTED FOR 30 DAYS. No glipizide 5 mg tablet TAKE 1 TABLET TWICE A DAY BY ORAL ROUTE DIRECTED FOR 30 DAYS. [facility] hydralazine 25 mg tablet TAKE ONE [...] AROUND THE CLOCK FOR 30 DAYS. [facility] hydrocodone 10 mg-acetamin ophen 325 [...] BY ORAL ROUTE NEEDED FOR 30 DAYS. [facility] losartan 100 mg tablet TAKE ONE (1) TABLET EVERY DAY BY ORAL ROUTE. losartan 100 mg tablet TAKE ONE (1) TABLET EVERY DAY BY ORAL ROUTE. No losartan 100 mg tablet TAKE ONE (1) TABLET EVERY DAY BY ORAL ROUTE. [facility] metformin 500 mg tablet TAKE 1 TABLET TWICE A DAY BY ORAL ROUTE FOR 30 DAYS. metformin 500 mg tablet TAKE 1 TABLET TWICE A DAY BY ORAL ROUTE FOR 30 DAYS. No metformin 500 mg tablet TAKE 1 TABLET TWICE A DAY BY ORAL ROUTE FOR 30 DAYS. [facility] peg 3350-electr olytes 236 gram-22.74 gram-6.74 gram-5.86 gram solution TAKE 2000 ML(S) BY MOUTH TWICE A DAY FOR 1 DAY. peg 3350-electr olytes 236 gram-22.74 gram-6.74 gram-5.86 gram solution TAKE 2000 ML(S) BY MOUTH TWICE A DAY FOR 1 DAY. No peg 3350-elect rolytes 236 gram-22.74 gram-6.74 gram-5.86 gram solution TAKE 2000 ML(S) BY MOUTH TWICE A DAY FOR 1 DAY. [facility] Plenvu 140 gram-9 gram-5.2 gram powder [...] day by oral route for 1 day. [facility] prednisone 10 mg tablet TAKE TWO [...] TABLET ONCE A DAY FOR 3 DAYS. [facility] rosuvastati n 20 mg tablet TAKE ONE (1) TABLET EVERY DAY BY ORAL ROUTE FOR 90 DAYS. rosuvastati n 20 mg tablet TAKE ONE (1) TABLET EVERY DAY BY ORAL ROUTE FOR 90 DAYS. No rosuvastat in 20 mg tablet TAKE ONE (1) TABLET EVERY DAY BY ORAL ROUTE FOR 90 DAYS. [facility] solifenacin 10 mg tablet TAKE 1 TABLET EVERY DAY BY ORAL ROUTE DIRECTED FOR 30 DAYS. solifenacin 10 mg tablet TAKE 1 TABLET EVERY DAY BY ORAL ROUTE DIRECTED FOR 30 DAYS. No solifenaci n 10 mg tablet TAKE 1 TABLET EVERY DAY BY ORAL ROUTE DIRECTED FOR 30 DAYS. [facility] Vital Signs Vital Name Observation Time Observation Value Comments S ource Height 2022-05-18 00:00:00 63 [in_i] [facility] BMI (Body Mass Index) 2022-05-18 00:00:00 76.7 kg/m2 [facility] Body Weight 2022-05-18 00:00:00 433 [lb_av] [facility] Height 2022-04-16 00:00:00 63 [in_i] [facility] BMI (Body Mass Index) 2022-04-16 00:00:00 73.5 kg/m2 [facility] Body Weight 2022-04-16 00:00:00 415 [lb_av] [facility] Systolic blood pressure 2021-08-28 04:26:00 147 mm[Hg] [facility] Diastolic blood pressure 2021-08-28 04:26:00 87 mm[Hg] [facility] Heart rate 2021-08-28 04:26:00 96 /min [facility] Body temperature 2021-08-28 04:26:[address] [facility] Respiratory rate 2021-08-28 04:26:00 18 /min [facility] Body height 2021-08-28 04:26:00 160 cm [facility] Body weight 2021-08-28 04:26:00 195.047 kg [facility] BMI 2021-08-28 04:26:00 76.17 kg/m2 [facility] Oxygen saturation in Arterial blood by Pulse oximetry 2021-08-28 04:26:00 97 /min [facility] Procedures Procedure Date / Time Performed Performing Clinician Source XR SHOULDER 2+ VW LEFT 2021-08-28 06:42:[address] [facility] NOTICE OF PRIVACY PRACTICES 2021-08-28 04:13:11 Doctor Unassigned, [place] [facility] CONSENT/REFUSAL FOR DIAGNOSI S AND TREATMENT 2021-08-28 04:09:48 Doctor Unassigned, [place] [facility] Esophagogastroduodenoscopy 2017-04-12 00:00:00 [facility] Hysterectomy [facility] Laparoscopic Adjustable Asad lizette Banding [facility] Encounters Start Date/Time End Date/Time Encounter Type Admission Type Attending Clinicians Care Facility Care Department Encounter ID Source 2022-08-25 09:57:53 Outpatient [facility] [id number] [facility] 2022-07-09 10:45:00 Inpatient PEE LINARES [facility] [id number] [facility] 2022-04-21 11:00:00 Inpatient CANDELARIO [facility]FF [facility] [id number] [facility] 2022-04-17 11:57:06 Outpatient [facility] [id number] [facility] 2022-03-20 11:00:00 Inpatient CANDELARIO [facility] [id number] [facility] 2022-03-02 11:00:00 Inpatient CANDELARIO [facility] [id number] [facility] 2023-01-26 00:00:00 2023-01-26 00:00:00 Outpatient GC_GCBZW_Ka diyala_S PRIV PRIV [id number] [facility] 2023-01-25 00:00:00 2023-01-25 00:00:00 Outpatient GC_GCBZW_Ka diyala_S PRIV PRIV [id number] [facility] 2022-08-26 00:00:00 2022-08-26 00:00:00 Outpatient Fredy rivera [facility] [id number] [facility] 2022-07-10 14:00:00 2022-07-10 14:00:00 Outpatient PAM SHAY [id number] Veronica Gamino 2022-07-07 00:00:00 2022-07-07 00:00:00 Outpatient VALERIE PAZ [facility] [id number] [facility] 2022-05-18 00:00:00 2022-05-18 00:00:00 Pee Tracey MD: [address], [address], [place] [address] , Ph. [facility] Sabianism [facility] [id number] [facility] 2022-04-16 00:00:00 2022-04-16 00:00:00 Outpatient FERGUSON_JO HN [facility] [id number] [facility] 2022-04-16 00:00:00 2022-04-16 00:00:00 Outpatient FERGUSON_JO HN [facility] [id number] [facility] 2022-04-16 00:00:00 2022-04-16 00:00:00 Pee Tracey MD: [address], [address], [place] [address] , Ph. [facility] Sabianism [facility] [id number] [facility] 2022-04-15 00:00:00 2022-04-15 00:00:00 Outpatient FERGUSON_JO HN [place] [id number] [facility] 2022-04-03 00:00:00 2022-04-03 00:00:00 Outpatient FERGUSON_JO HN [facility] [id number] [facility] 2022-04-03 00:00:00 2022-04-03 00:00:00 Outpatient FERGUSON_JO HN [facility] [id number] [facility] 2021-10-13 02:41:00 2021-10-13 02:41:00 Outpatient FERGUSON_JO HN [facility] [id number] [facility] 2021-08-27 23:29:00 2021-08-28 02:53:00 Emergency X [facility]ORY ASCENCIO [facility] ERT [id number] [facility] 2021-08-27 23:29:00 2021-08-28 02:53:00 Emergency Emory Ascencio [facility] [id number] [id number] [facility] 2019-12-06 09:30:00 2019-12-06 09:30:00 Outpatient R NOE KENNEY [facility] [id number] [facility] 2019-11-15 10:00:00 2019-11-15 10:00:00 [facility] [id number] [facility] 2019-10-27 00:00:00 2019-10-27 00:00:00 Telephone Lee Atkinson [facility] Building 1.114 [id number] 2019-10-27 00:00:00 2019-10-27 00:00:00 Orders Only Doctor Unassigned, [place] [facility] 1.114 [id number] 2019-08-16 13:40:00 2019-08-16 13:40:00 Outpatient R EDILMA STOVALL [facility] [id number] [facility] 2019-06-14 13:00:00 2019-06-14 13:00:00 Outpatient R KWABENA ROBERTS STRAHIL [facility] [id number] [facility] 2019-06-07 00:00:00 2019-06-07 00:00:00 Telephone Lucie Earl [facility] Office Building One .114 [id number] 2019-03-16 13:19:06 2019-06-06 18:29:06 Office Visit Manuela Hitchcock [facility] Office Building One .114 [id number] 2019-06-06 00:00:00 2019-06-06 00:00:00 Refill Lucie Earl [facility] Building One [id number] 2019-05-31 15:30:00 2019-05-31 15:30:00 Outpatient KWABENA HUTCHINSON [facility]ASC[facility] [id number] [facility] 2019-05-24 00:00:00 2019-05-24 00:00:00 Patient Secure Msg Doctor Unassigned, [place] [id number] 2019-03-16 13:20:00 2019-03-16 14:01:40 Outpatient MANUELA PATRICIO [facility] [id number] [facility] 2019-03-16 00:00:00 2019-03-16 00:00:00 Orders Only Doctor Unassigned, [place] [id number] 2018-12-28 11:30:00 2018-12-28 12:01:25 Outpatient KWABENA HUTCHINSON [facility] [id number] [facility] 2018-11-08 11:00:00 2018-11-08 11:00:00 Outpatient EDILMA BRYANT [facility] [id number] [facility] 2009-06-20 09:28:00 2009-06-20 09:28:00 Outpatient LARON FORBES [facility] [id number] [facility] 2009-05-15 14:26:00 2009-05-16 14:07:00 Inpatient LARON FORBES [facility] [id number] [facility] 2008-11-05 12:24:00 2008-11-05 12:24:00 Outpatient LARON FORBES [facility] [id number] [facility] 2006-11-09 11:28:00 2006-11-09 14:20:00 Emergency ER MELVIN POLLOCK [facility] [id number] [facility]
[2023-05-22 17:14] LABS: Absolute Lymphocytes (CBC) 1.8 K/uL (0.7-4.9); Hematocrit 38.7 % (36.0-45.0); Lymphocytes % 27.5 % (15.3-44.8); MPV 7.3 fL (7.6-11.3); Platelets 287 thou/uL (152-406); RBC Red Blood Cell Count 4.77 M/uL (3.86-4.86)
[2023-05-22 17:17] LABS: Specific Gravity 1.014 (1.005-1.030); Urine Bacteria <20 /HPF (<20); Urine Bilirubin NEGATIVE (Negative); Urine Blood 3+ (Negative); Urine Clarity Extremely Turbid (Clear); Urine Color Light-Yellow (Yellow); Urine Glucose NEGATIVE (Negative); Urine Mucus Slight /HPF (None Seen); Urine Protein 2+ (Negative); Urine RBC >50 /HPF (None Seen); Urine Urobilinogen Normal (Normal); Urine pH 6.5 (5.0-7.0)
[2023-05-22 17:29] LABS: Albumin 2.9 g/dL (3.4-5.0); Bilirubin Total 0.4 mg/dL (0.2-1.0); Potassium 3.7 mEq/L (3.5-5.1); Protein, Total 7.8 g/dL (6.4-8.2)
--- NOTE | 2023-05-22 18:04 | ER ---
Nurse's Notes [facility] Name: Sahra Dewey Age: 57 yrs Sex: Female : 1965 Arrival Date: 05/22/2023 Time: 15:47 Bed 15 Private MD: Diagnosis: UTI/ Urinary tract infection, site not specified;Nausea with vomiting, unspecified Presentation: 05/22 16:09 Chief complaint: Patient states: Generalized abdominal pain onset this morning. Pt cm10 reports 4 episodes of vomiting and diarrhea. No Fevers. Coronavirus screen: Vaccine status: Patient reports receiving the 2nd dose of the covid vaccine. Client denies travel out of the [place] in the last 14 days. Ebola Screen: Patient denies travel to an Ebola-affected area in the 21 days before illness onset. No symptoms or risks identified at this time. Initial Sepsis Screen: Does the patient meet any 2 criteria? HR > 90 bpm. Does the patient have a suspected source of infection? No. Patient's initial sepsis screen is negative. Risk Assessment: Do you want to hurt yourself or someone else? Patient reports no desire to harm self or others. Onset of symptoms was May 22, 2023. 16:09 Method Of Arrival: Wheelchair cm10 16:09 Acuity: MESSI 3 cm10 Historical: - Allergies: 16:11 Iodine; cm10 - PMHx: 16:11 Asthma; Diabetes - NIDDM; Hypertension; cm10 - PSHx: 16:11 Total abdominal hysterectomy; cm10 - Immunization history:: Adult Immunizations up to date. - Social history:: Smoking status: Patient denies any tobacco usage or history of. Screenin:04 [facility] ED Fall Risk Assessment (Adult) History of falling in the last 3 months, kc6 including since admission No falls in past 3 months (0 pts) Confusion or Disorientation No (0 pts) Intoxicated or Sedated No (0 pts) Impaired Gait No (0 pts) Mobility Assist Device Used No (0 pt) Altered Elimination No (0 pt) Score/Fall Risk Level 0 - 2 = Low Risk. Abuse screen: Denies threats or abuse. Denies injuries from another. Nutritional screening: No deficits noted. Tuberculosis screening: No symptoms or risk factors identified. Assessment: 16:20 Reassessment: Patient and/or family updated on plan of care and expected duration. Pain rs5 level reassessed. Patient is alert, oriented x 3, equal unlabored respirations, skin warm/dry/pink. 17:05 General: Appears in no apparent distress. comfortable, obese, well groomed, well kc6 developed, Behavior is calm, cooperative, appropriate for age. Pain: Complains of pain in abdomen. Neuro: Level of Consciousness is awake, alert, obeys commands, Oriented to person, place, time, situation, Appropriate for age. Cardiovascular: Capillary refill < 3 seconds. Respiratory: Airway is patent Trachea midline Respiratory effort is even, unlabored, Respiratory pattern is regular, symmetrical. GI: Abdomen is round non-distended, obese, Bowel sounds present X 4 quads. Abd is soft X 4 quads Reports diarrhea, nausea, vomiting. : No signs and/or symptoms were reported regarding the genitourinary system. Urine is clear. EENT: No signs and/or symptoms were reported regarding the EENT system. Derm: No signs and/or symptoms reported regarding the dermatologic system. Skin is intact, is healthy with good turgor, Skin is pink, warm \T\ dry. Musculoskeletal: No signs and/or symptoms reported regarding the musculoskeletal system. Circulation, motion, and sensation intact. Capillary refill < 3 seconds, Range of motion: intact in all extremities. 17:58 Reassessment: Patient and/or family updated on plan of care and expected duration. Pain rs5 level reassessed. Patient is alert, oriented x 3, equal unlabored respirations, skin warm/dry/pink. Patient denies pain at this time. Patient states feeling better. Patient states symptoms have improved. 18:10 Reassessment: No changes from previously documented assessment. rs5 18:15 Reassessment: pt up for discharge, awaiting fluids to finish per MD orders. rs5 18:46 Reassessment: 300 cc remaining in saline bag. rs5 Vital Signs: 16:09 BP 125 / 71; Pulse 90; Resp 18; Temp 97.2; Pulse Ox 97% on R/A; Height 5 ft. 3 in. ; cm10 Pain 8/10; 17:06 BP 147 / 89; Pulse 82; Resp 16 S; Pulse Ox 99% on R/A; kc6 17:58 BP 145 / 90; Pulse 79; Resp 18; Pulse Ox 99% on R/A; rs5 18:46 BP 140 / 87; Pulse 83; Resp 18; Pulse Ox 99% ; rs5 16:09 Pain Scale: Adult cm10 ED Course: 15:58 Patient arrived in ED. mr 15:59 Rosina Kelly FNP is [facility] jh7 15:59 Jeff Beckett MD is Attending Physician. jh7 16:11 Triage completed. cm10 16:11 Arm band placed on Patient placed in waiting room. cm10 17:04 Flu Sent. kc6 17:04 CBC with Diff Sent. kc6 17:04 CMP Sent. kc6 17:04 Lipase Sent. kc6 17:04 Urinalysis w/ reflexes Sent. kc6 17:04 Inserted saline lock: 20 gauge in right antecubital area, using aseptic technique. kc6 Blood collected. Patient maintains SpO2 saturation greater than 95% on room air. 17:05 Patient has correct armband on for positive identification. Bed in low position. Call kc6 light in reach. Side rails up X2. Adult w/ patient. Client placed on continuous cardiac and pulse oximetry monitoring. NIBP monitoring applied. 17:06 Report given to Tank Rodriguez RN. kc6 17:33 Tank Rodriguez, RN is Primary Nurse. rs5 17:59 No provider procedures requiring assistance completed. rs5 Administered Medications: 17:04 Drug: NS 0.9% IV 1000 ml IV at 1 bolus Per protocol; 1000 mL bolus Route: IV; Rate: 1 kc6 bolus; Site: right antecubital; 17:22 Follow up: Response: No adverse reaction rs5 17:04 Drug: Famotidine IVP 20 mg IVP once; dilute with 10 mL 0.9% NaCl; give over 2 minutes kc6 Route: IVP; Site: right antecubital; 17:22 Follow up: Response: No adverse reaction rs5 17:04 Drug: Ondansetron IVP 4 mg IVP once; over 2 minutes Route: IVP; Site: right antecubital;kc6 17:25 Follow up: Response: No adverse reaction; Nausea is decreased rs5 17:42 Drug: Rocephin IV 1 grams IV at 1 calculated rate once; Given slow IV push per pharmacy rs5 instructions Route: IV; Rate: 1 calculated rate; Site: left antecubital; 18:00 Follow up: Response: No adverse reaction rs5 Medication: 17:59 VIS not applicable for this client. rs5 Outcome: 18:03 Discharge ordered by MD. diamond 19:24 Patient left the ED. mb9 Signatures: Marianela Coon Reg Reg Rosina Salazar, EAR NOSE AND THROAT SPECIALIST EAR NOSE AND THROAT SPECIALIST jh7 Ttee Tello RN RN kc6 Marianela Smalls RN RN mb9 Tank Rodriguez RN RN rs5 Anum Ortiz RN RN cm10
--- NOTE | 2023-05-22 18:04 | EDPHYS ---
Physician Documentation [facility] Name: Sahra Dewey Age: 57 yrs Sex: Female : 1965 Arrival Date: 05/22/2023 Time: 15:47 Bed 15 Private MD: ED Physician Jeff Beckett HPI: 05/22 16:09 This 57 yrs old Black Female presents to ER via Wheelchair with complaints of Abdominal jh7 Pain, Vomiting. 16:09 The patient presents with abdominal pain that is diffuse. Onset: The symptoms/episode jh7 began/occurred this morning. The symptoms do not radiate. Associated signs and symptoms: Pertinent positives: nausea, vomiting, and diarrhea, dysuria, Pertinent negatives: fever, headache, shortness of breath, vaginal discharge, vomiting blood. 18:02 Patient states that dysuria started yesterday and developed nausea, vomiting, mild jh7 diarrhea today. States she has a history of UTIs. Past medical history of hypertension and diabetes.. Historical: - Allergies: 16:11 Iodine; cm10 - PMHx: 16:11 Asthma; Diabetes - NIDDM; Hypertension; cm10 - PSHx: 16:11 Total abdominal hysterectomy; cm10 - Immunization history:: Adult Immunizations up to date. - Social history:: Smoking status: Patient denies any tobacco usage or history of. ROS: 16:09 Constitutional: Negative for fever, chills, and weight loss, Eyes: Negative for injury, jh7 pain, redness, and discharge, Neck: Negative for injury, pain, and swelling, Cardiovascular: Negative for chest pain, palpitations, and edema, Respiratory: Negative for shortness of breath, cough, wheezing, and pleuritic chest pain, Back: Negative for injury and pain, MS/Extremity: Negative for injury and deformity, Skin: Negative for injury, rash, and discoloration, Neuro: Negative for headache, weakness, numbness, tingling, and seizure, 16:09 Abdomen/GI: Positive for nausea, vomiting, and diarrhea, abdominal cramps, Negative for black/tarry stool, rectal pain, 16:09 : Positive for urinary symptoms, 16:09 All other systems are negative, Exam: 16:09 Constitutional: This is a well developed, well nourished patient who is awake, alert, jh7 and in no acute distress. Head/Face: Normocephalic, atraumatic. Eyes: Pupils equal round and reactive to light, extra-ocular motions intact. Lids and lashes normal. Conjunctiva and sclera are non-icteric and not injected. Cornea within normal limits. Periorbital areas with no swelling, redness, or edema. Neck: Trachea midline, no thyromegaly or masses palpated, and no cervical lymphadenopathy. Supple, full range of motion without nuchal rigidity, or vertebral point tenderness. No Meningismus. Cardiovascular: Regular rate and rhythm with a normal S1 and S2. No gallops, murmurs, or rubs. Normal PMI, no JVD. No pulse deficits. Respiratory: Lungs have equal breath sounds bilaterally, clear to auscultation and percussion. No rales, rhonchi or wheezes noted. No increased work of breathing, no retractions or nasal flaring. Abdomen/GI: Soft, non-tender, with normal bowel sounds. No distension or tympany. No guarding or rebound. No evidence of tenderness throughout. Back: No spinal tenderness. No costovertebral tenderness. Full range of motion. Skin: Warm, dry with normal turgor. Normal color with no rashes, no lesions, and no evidence of cellulitis. MS/ Extremity: Pulses equal, no cyanosis. Neurovascular intact. Full, normal range of motion. Neuro: Awake and alert, GCS 15, oriented to person, place, time, and situation. Motor strength 5/5 in all extremities. Sensory grossly intact. Normal gait. Vital Signs: 16:09 BP 125 / 71; Pulse 90; Resp 18; Temp 97.2; Pulse Ox 97% on R/A; Height 5 ft. 3 in. ; cm10 Pain 8/10; 17:06 BP 147 / 89; Pulse 82; Resp 16 S; Pulse Ox 99% on R/A; kc6 17:58 BP 145 / 90; Pulse 79; Resp 18; Pulse Ox 99% on R/A; rs5 18:46 BP 140 / 87; Pulse 83; Resp 18; Pulse Ox 99% ; rs5 16:09 Pain Scale: Adult cm10 MDM: 16:00 Patient medically screened. [facility] 18:05 Differential diagnosis: non-specific abd pain, Pyelonephritis, urinary tract infection, 7 Gastritis, gastroenteritis, influenza. Data reviewed: vital signs, nurses notes, lab test result(s). I considered the following discharge prescriptions or medication management in the emergency department Medications were administered in the Emergency Department. See MAR. Care significantly affected by the following chronic conditions: Diabetes, Hypertension. Counseling: I had a detailed discussion with the patient and/or guardian regarding the historical points, exam findings, and any diagnostic results supporting the discharge/admit diagnosis, to return to the emergency department if symptoms worsen or persist or if there are any questions or concerns that arise at home. Response to treatment: the patient's symptoms have markedly improved after treatment. ED course: The patient remained hemodynamically stable throughout the ER visit. She showed no peritoneal signs/signs of acute abdomen. Advised her to take medication as directed, increase p.o. fluid intake, and rest until symptoms improve.. 05/22 16:10 Order name: CBC with Diff; Complete Time: 17:24 [facility] 05/22 16:10 Order name: CMP; Complete Time: 17:32 [facility] 05/22 16:10 Order name: Lipase; Complete Time: 17:32 [facility] 05/22 16:10 Order name: Urinalysis w/ reflexes; Complete Time: 17:32 [facility] 05/22 16:10 Order name: Flu; Complete Time: 18:04 [facility] 05/22 17:27 Order name: Urine Culture [facility] 05/22 16:10 Order name: IV Saline Lock; Complete Time: 17:04 [facility] 05/22 16:10 Order name: Labs collected and sent; Complete Time: 17:04 7 Administered Medications: 17:04 Drug: NS 0.9% IV 1000 ml IV at 1 bolus Per protocol; 1000 mL bolus Route: IV; Rate: 1 kc6 bolus; Site: right antecubital; 17:22 Follow up: Response: No adverse reaction rs5 17:04 Drug: Famotidine IVP 20 mg IVP once; dilute with 10 mL 0.9% NaCl; give over 2 minutes kc6 Route: IVP; Site: right antecubital; 17:22 Follow up: Response: No adverse reaction rs5 17:04 Drug: Ondansetron IVP 4 mg IVP once; over 2 minutes Route: IVP; Site: right antecubital;kc6 17:25 Follow up: Response: No adverse reaction; Nausea is decreased rs5 17:42 Drug: Rocephin IV 1 grams IV at 1 calculated rate once; Given slow IV push per pharmacy rs5 instructions Route: IV; Rate: 1 calculated rate; Site: left antecubital; 18:00 Follow up: Response: No adverse reaction rs5 Disposition: 19:20 Co-signature as Attending Physician, Jeff Beckett MD I agree with the assessment and kdr plan of care. Disposition Summary: 05/22/23 18:03 Discharge Ordered Notes: Location: Home [facility] Problem: new [facility] Symptoms: have improved [facility] Condition: Stable [facility] Diagnosis - UTI/ Urinary tract infection, site not specified [facility] - Nausea with vomiting, unspecified [facility] Followup: [facility] - With: Private Physician - When: 2 - 3 days - Reason: Recheck today's complaints Discharge Instructions: - Discharge Summary Sheet [facility] - Nausea and Vomiting, Adult [facility] - Urinary Tract Infection, Adult [facility] Forms: - Medication Reconciliation Form [facility] - Thank You Letter [facility] - Antibiotic Education [facility] - Patient Portal Instructions [facility] - Leadership Thank You Letter [facility] Prescriptions: - cefdinir 300 mg Oral capsule - take 1 capsule ORAL route 2 times per day for 7 days; 14 capsule; Refills: 0, [facility] Product Selection Permitted - ondansetron 4 mg Oral Tablet,disintegrating - take 1 tablet ORAL route every 4-6 hours As needed; 20 tablet; Refills: 0, [facility] Product Selection Permitted Signatures: Dispatcher [employer] [facility] Jeff Beckett MD MD [facility] Rosina Kelly, [employer]ING DIS[employer]LED TEACHER 7 Tete Tello RN RN kc6 Tank Rodriguez RN RN rs5 Anum Ortiz RN RN cm10
[2023-05-22 19:33] VITALS: TEMP 97.2; O2SAT 99
[2023-05-22 19:55] VITALS: BP 140/87
== END ==
LOC: ER 15:47
DX: N39.0 Urinary tract infection, site not specified (principal); E11.9 Type 2 diabetes mellitus without complications; I10 Essential (primary) hypertension; Z91.048 Other nonmedicinal substance allergy status
CPT/HCPCS: 87088; 85025; 81001; 87086; 36415; 87077; 87186; 83690; 80053; 87804 ×2; J2405; J7030; J0696; 99284